=== PATIENT | female | born 1930 | race Caucasian/White ===

== ENCOUNTER 2016-07-28 13:11 | Emergency (ER) | payer MEDICARE, OTHER ==
[2010-07-26 07:20] VITALS: BMI 20.4
[2016-07-28 14:02] LABS: BASOPHILS 0.2 % (0.0-2.0); EOSINOPHILS 2.5 % (0-7); HEMATOCRIT 39.3 % (36.0-48.0); HEMOGLOBIN 12.6 g/dL (12-16); IMMATURE GRANULOCYTES 0.2 % (0-5); MCH 31.3 pg (26.0-34.0); MCHC 32.1 g/dL (31.0-37.0); MCV 97.8 fL (80.0-100.0); MEAN PLATELET VOLUME 10.1 fL (7.4-10.4); MONOCYTES 10.3 % (2-11); NEUTROPHILS 74.8 % (40-80); PLATELET COUNT 251 10x3/uL (130-400); RBC 4.02 10x6/uL (4.00-5.40); RDW 13.1 % (11.5-14.5); WBC 8.9 10x3/uL (4.8-10.8)
== END 2016-07-28 15:24 | disposition home or self-care (01) ==
LOC: D.ER 13:11
PROVIDERS: Emergency Medicine
DX: L02.31 Cutaneous abscess of buttock (principal); I50.9 Heart failure, unspecified; D64.9 Anemia, unspecified

== ENCOUNTER 2018-05-01 18:29 | Emergency (ER) | payer MEDICARE, OTHER ==
[~2018-05-01] VITALS: Ht 162.6 cm; Wt 41.8 kg
[2018-05-01 18:33] VITALS: Ht 162.6 cm; Wt 41.8 kg
[2018-05-01 19:25] LABS: BASOPHILS 0.9 % (0-2); EOSINOPHILS 9.4 % (0-7); HEMATOCRIT 34.2 % (36.0-48.0); HEMOGLOBIN 11.3 g/dL (12-16); IMMATURE GRANULOCYTES 0.2 % (0-5); LYMPHOCYTES 23.9 % (15-50); MCH 32.4 pg (26.0-34.0); MEAN PLATELET VOLUME 10.3 fL (7.4-10.4); MONOCYTES 15.8 % (2-11); NEUTROPHILS 49.8 % (40-80); RBC 3.49 10x6/uL (4.00-5.40); RDW 13.2 % (11.5-14.5); WBC 4.6 10x3/uL (4.8-10.8)
[2018-05-01 19:31] LABS: PLATELET COUNT 172 10x3/uL (130-400)
[2018-05-01 20:06] LABS: ALBUMIN 3.4 g/dL (3.4-5.0); BILIRUBIN - TOTAL 0.56 mg/dL (0.2-1.3); CALCIUM 8.5 mg/dL (8.5-10.1); CARBON DIOXIDE 23.4 mmol/L (21.0-32.0); CREATININE - SERUM 1.8 mg/dL (0.6-1.3); POTASSIUM - SERUM 4.4 mmol/L (3.5-5.1)
[2018-05-01 20:10] LABS: APPEARANCE CLEAR (CLEAR); BILIRUBIN NEGATIVE (NEGATIVE); COLOR YELLOW (YELLOW); GLUCOSE NEGATIVE (NEGATIVE); KETONE NEGATIVE (NEGATIVE); NITRITE NEGATIVE (NEGATIVE); PROTEIN NEGATIVE (NEGATIVE); UROBILINOGEN NORMAL (NORMAL)
[2018-05-01 20:11] LABS: BACTERIA FEW /hpf (NONE SEEN); EPITHELIAL CELLS 0-5 /hpf (0-5); RED CELLS - URINE OCC /hpf (0-5); WHITE CELLS - URINE 0-5 /hpf (0-5)
[2018-05-01] MEDS ORDERED: MACROBID100 MG PO (20:41)
[2018-05-01 20:48] VITALS: BP 138/77
== END 2018-05-01 20:48 | disposition home or self-care (01) ==
LOC: D.ER 18:29
PROVIDERS: Family Medicine
DX: N39.0 Urinary tract infection, site not specified (principal); R53.1 Weakness

== ENCOUNTER → 2018-06-29 13:29 | Outpatient (CLI) | payer MEDICARE, OTHER ==
[2018-05-01 18:33] VITALS: BMI 15.8
[~2018-06-29 13:29] MED LIST: MACROBID100 MG PO
[2018-06-29 13:54] LABS: AMYLASE - SERUM 59 U/L (25-115); LIPASE 197 U/L (73-393)
== END | disposition home or self-care (01) ==
LOC: D.LABREF 13:29
PROVIDERS: Internal Medicine Gastroenterology
DX: R11.2 Nausea with vomiting, unspecified (principal); K21.9 Gastro-esophageal reflux disease without esophagitis; R10.32 Left lower quadrant pain; R63.4 Abnormal weight loss

== ENCOUNTER 2018-07-31 08:44 | Day surgery (SDC) | payer MEDICARE, BC ==
[~2018-07-31] VITALS: Ht 162.6 cm; Wt 38.6 kg
[2018-07-31 09:13] LABS: BASOPHILS 0.6 % (0-2); EOSINOPHILS 0.7 % (0-7); HEMATOCRIT 35.6 % (36.0-48.0); HEMOGLOBIN 11.7 g/dL (12-16); LYMPHOCYTES 16.7 % (15-50); MCH 32.8 pg (26.0-34.0); MCHC 32.9 g/dL (31.0-37.0); MCV 99.7 fL (80.0-100.0); MEAN PLATELET VOLUME 10.2 fL (7.4-10.4); MONOCYTES 11.1 % (2-11); NEUTROPHILS 70.9 % (40-80); RBC 3.57 10x6/uL (4.00-5.40); RDW 13.5 % (11.5-14.5); WBC 5.4 10x3/uL (4.8-10.8)
[2018-07-31 09:15] LABS: PLATELET COUNT 230 10x3/uL (130-400)
[2018-07-31 09:17] LABS: ANION GAP 16.6 mmol/L (8-16); CALCIUM 8.6 mg/dL (8.5-10.1); CARBON DIOXIDE 20.3 mmol/L (21.0-32.0); CREATININE - SERUM 1.9 mg/dL (0.6-1.3); POTASSIUM - SERUM 3.9 mmol/L (3.5-5.1)
[2018-07-31] MEDS ORDERED: PLAVIX75 MG PO (09:59)
[2018-07-31] MEDS ORDERED: FUROSEMIDE10 MG/M1 IV (09:59)
[2018-07-31] MEDS ORDERED: STERAPRED DS 1010 MG PO (10:00)
[2018-07-31 10:01] VITALS: BP 139/64; Ht 162.6 cm; Wt 38.6 kg
[2018-07-31] MEDS ORDERED: ACETAMINOP160 MG/5 M PO (10:01)
--- NOTE | 2018-08-05 06:53 | OP ---
PATIENT NAME: JACINTO DHALIWAL MEDICAL RECORD: [id number] :30 [facility] DATE: SURGEON: ASHLEIGH CUNNINGHAM DO DATE OF OPERATION: 07/31/2018 PROCEDURE: EGD with biopsies. INDICATION FOR PROCEDURE: Dysphagia, GERD, nausea and vomiting, left upper quadrant abdominal pain, and unintentional weight loss. SCOPE: Olympus video gastroscope. MEDICATIONS: Propofol 80 mg IV per anesthesia. ESTIMATED BLOOD LOSS: Minimal. COMPLICATIONS: None. FINDINGS: Informed consent was given. The patient was made comfortable with the above medication. After reaching an adequate level of sedation by slow IV push, the patient was placed on her left side. The endoscope was advanced under direct visualization through the mouth to the second portion of the duodenum with ease. The upper, middle, and lower thirds of the esophagus appeared normal. At the GE junction, there was mild evidence of LA class A reflux-induced esophagitis. The endoscope was advanced beyond the GE junction into the stomach and retroflexed to view the cardia, where a small sliding hiatal hernia was present. There were no associated ulcers or erosions with this hernia. Throughout the entire stomach, the mucosa appeared slightly atrophic, but there were no ulcers, erosions, or other abnormalities. A single cold forceps biopsy was taken from the antrum to submit for histopathology and to rule out the presence of H. pylori. The endoscope was advanced beyond the pylorus into the duodenum. The entire examined duodenum to the second portion appeared normal. The endoscope was withdrawn from the patient. The patient tolerated the procedure well and there were no complications. IMPRESSION: 1. LA class A reflux-induced esophagitis. 2. Hiatal hernia. 3. Atrophic gastric mucosa. Biopsies taken. PLAN AND RECOMMENDATIONS: 1. Discharge home when recovery parameters are met. 2. Follow up biopsy specimen results. 3. Modified barium swallow regarding the oropharyngeal dysphagia. 4. Trial of omeprazole 40 mg daily times 30 days. 5. Follow up in GI clinic in 4 weeks. 6. If symptoms are no better and no answers are given from modified barium swallow, we will provide further workup, which may include barium esophagram and/or esophageal manometry as well as possible colonoscopy versus imaging studies. TRANSINT:[id number] Voice Confirmation ID: [id number] DOCUMENT ID: [id number] OPERATIVE REPORT [id number] JACINTO DHALIWALASHLEIGH CANDELARIA DO at 0653 CC: [id number] DICTATION DATE: 07/31/18 1212 HISTORIC SITES REGISTRAR: 07/31/18 1335 [facility] 07/31/18 [place] [address] [place] [address]
== END 2018-07-31 13:00 | disposition home or self-care (01) ==
LOC: D.OPS 08:44
PROVIDERS: Anesthesiology
DX: R13.10 Dysphagia, unspecified (principal); K21.9 Gastro-esophageal reflux disease without esophagitis; R11.2 Nausea with vomiting, unspecified; R63.4 Abnormal weight loss; R10.32 Left lower quadrant pain; K21.0 Gastro-esophageal reflux disease with esophagitis; K44.9 Diaphragmatic hernia without obstruction or gangrene; K29.40 Chronic atrophic gastritis without bleeding; Z01.812 Encounter for preprocedural laboratory examination

== ENCOUNTER → 2018-08-02 12:18 | Outpatient (CLI) | payer MEDICARE, BC ==
[2018-07-31 10:01] VITALS: BMI 14.6
[~2018-08-02 12:18] MED LIST changes: +ACETAMINOP160 MG/5 M PO; +FUROSEMIDE10 MG/M1 IV; +PLAVIX75 MG PO; +STERAPRED DS 1010 MG PO
== END | disposition home or self-care (01) ==
LOC: D.RAD 12:18
DX: R13.12 Dysphagia, oropharyngeal phase (principal)

== ENCOUNTER 2018-09-18 09:53 | Emergency (ER) | payer MEDICARE, BC ==
[~2018-09-18] VITALS: Ht 162.6 cm; Wt 43.6 kg
[2018-09-18 09:57] VITALS: Ht 162.6 cm; Wt 43.6 kg
[2018-09-18] MEDS ORDERED: VITAMIN D10000 UNI1 PO (10:01)
[2018-09-18] MEDS ORDERED: PREDNISONE20 MG PO (10:27)
[2018-09-18 11:06] VITALS: BP 146/76
== END 2018-09-18 11:07 | disposition home or self-care (01) ==
LOC: D.ER 09:53
DX: L29.9 Pruritus, unspecified (principal)

== ENCOUNTER 2018-10-23 08:22 | Day surgery (SDC) | payer MEDICARE, BC ==
[~2018-10-23 08:22] MED LIST changes: +PREDNISONE20 MG PO; +VITAMIN D10000 UNI1 PO
[2018-10-23 09:13] LABS: HEMATOCRIT 36.7 % (36.0-48.0); HEMOGLOBIN 12.5 g/dL (12-16); MCH 32.4 pg (26.0-34.0); MCHC 34.1 g/dL (31.0-37.0); MCV 95.1 fL (80.0-100.0); MEAN PLATELET VOLUME 10.2 fL (7.4-10.4); RBC 3.86 10x6/uL (4.00-5.40); RDW 13.6 % (11.5-14.5); WBC 4.9 10x3/uL (4.8-10.8)
[2018-10-23 09:53] VITALS: BP 133/79; BMI 15.8
--- NOTE | 2018-10-28 07:50 | OP ---
PATIENT NAME: JACINTO DHALIWAL MEDICAL RECORD: [id number] :30 LOCATION:[facility] ADMISSION DATE: SURGEON: ASHLEIGH CUNNINGHAM DO DATE OF OPERATION: 10/23/2018 PROCEDURE: Colonoscopy. INDICATIONS FOR PROCEDURE: Left upper quadrant abdominal pain, gas and bloating. SCOPE: Olympus video pediatric colonoscope. MEDICATIONS: Propofol 150 mg IV per anesthesia. WITHDRAWAL TIME: 6 minutes. ESTIMATED BLOOD LOSS: None. COMPLICATIONS: None. FINDINGS: Informed consent was given. The patient was made comfortable with the above medication. After reaching an adequate level of sedation by slow IV push, the patient was placed on her left side. A digital rectal examination was performed and revealed some external hemorrhoids. The endoscope was advanced under direct visualization through the rectum to the cecum, confirmed by the presence of the appendiceal orifice and ileocecal valve. The endoscope was slowly withdrawn and the mucosa was carefully examined. The prep quality was good. There were no polyps, diverticula, or other abnormalities visualized on today's examination. Retroflexion was performed in the rectum with visualization of grade II to grade III hemorrhoids. The endoscope was withdrawn from the patient. The patient tolerated the procedure well and there were no complications. IMPRESSION: Grade II to grade III internal and external hemorrhoids without bleeding. PLAN AND RECOMMENDATIONS: 1. Discharge home when recovery parameters are met. 2. High fiber diet. 3. Continue current medications. 4. No recalls necessary based on the patient's age, unless symptoms warrant evaluation. TRANSINT:[id number] Voice Confirmation ID: [id number] DOCUMENT ID: [id number] ASHLEIGH CUNNINGHAM DO at 0750 CC: [id number] DICTATION DATE: 10/23/18 1117 PIN OR CLIP FASTENER: 10/23/18 1128 [facility] 10/23/18 [place] [id number]
== END 2018-10-23 12:20 | disposition home or self-care (01) ==
LOC: D.OPS 08:22
PROVIDERS: Anesthesiology; ATTEND Internal Medicine Gastroenterology
DX: R10.12 Left upper quadrant pain (principal); K64.2 Third degree hemorrhoids; R11.2 Nausea with vomiting, unspecified; Z01.812 Encounter for preprocedural laboratory examination

== ENCOUNTER 2019-05-08 15:43 | Emergency (ER) | payer MEDICARE, BC ==
[~2019-05-08] VITALS: Ht 162.6 cm; Wt 42.7 kg
[2019-05-08 16:29] VITALS: Ht 162.6 cm; Wt 42.7 kg
[2019-05-08] MEDS ORDERED: HYDROCODON-ACE1 EAC7 PO (18:37)
[2019-05-08 19:16] VITALS: BP 160/83
== END 2019-05-08 18:59 | disposition home or self-care (01) ==
LOC: D.ER 15:43
DX: M79.671 Pain in right foot (principal); S99.921A Unspecified injury of right foot, initial encounter; W20.8XXA Other cause of strike by thrown, projected or falling object, initial encounter; M25.571 Pain in right ankle and joints of right foot; B15.9 Hepatitis A without hepatic coma; M19.90 Unspecified osteoarthritis, unspecified site

== ENCOUNTER → 2019-08-27 19:49 | Outpatient (CLI) | payer MEDICARE, BC ==
[2019-08-13 16:08] VITALS: BMI 16.8
[~2019-08-27 19:49] MED LIST changes: +HYDROCODON-ACE1 EAC7 PO; +KEFLEX500 MG PO; +MAXITROL EYE DRO5 ML EACH EYE; +MEDROL DOSE PACK4 MG PO
== END | disposition home or self-care (01) ==
LOC: D.LABREF 19:49
PROVIDERS: ATTEND Urology
DX: N39.0 Urinary tract infection, site not specified (principal)

== ENCOUNTER 2019-08-31 07:21 | Inpatient (IN) | payer MEDICARE, BC ==
[~2019-08-31] VITALS: Ht 162.6 cm; Wt 43.2 kg
[2019-08-31 09:06] LABS: HEMATOCRIT 34.1 % (36.0-48.0); HEMOGLOBIN 10.8 g/dL (12-16); MCH 31.2 pg (26.0-34.0); MCHC 31.7 g/dL (31.0-37.0); MCV 98.6 fL (80.0-100.0); MEAN PLATELET VOLUME 10.4 fL (7.4-10.4); PLATELET COUNT 178 10x3/uL (130-400); RBC 3.46 10x6/uL (4.00-5.40); RDW 14.6 % (11.5-14.5); WBC 22.2 10x3/uL (4.8-10.8)
[2019-08-31 09:09] LABS: CALCIUM 8.7 mg/dL (8.5-10.1); CARBON DIOXIDE 19.5 mmol/L (21.0-32.0); CREATININE - SERUM 1.5 mg/dL (0.6-1.3); POTASSIUM - SERUM 3.5 mmol/L (3.5-5.1)
[2019-08-31 09:15] LABS: ALBUMIN 2.9 g/dL (3.4-5.0); BILIRUBIN - TOTAL 0.28 mg/dL (0.2-1.3); INR 1.16 (0.85-1.17); PROTEIN - SERUM 6.2 g/dL (6.4-8.2); PROTIME 14.8 SECONDS (11.6-15.0)
[2019-08-31 09:16] LABS: D-DIMER-QUANTITATIVE 1.36 ug/mLFEU (0.20-0.54)
--- NOTE | 2019-08-31 09:30 | NUR ---
pt arrived via strecher and ambulated to bed with personal walker with steady gait. water recieved upon request. Denies further needs or pain at this time. Swelling noted to right foot. pulses palpable and even bilaterally. AxO. Oriented to room. Call light within reach. Bed in lowest position. Will continue to monitor.
[2019-08-31 09:32] LABS: EOSINOPHILS 1 % (0-7); LYMPHOCYTES 3 % (15-50); MONOCYTES 6 % (2-11); NEUTROPHILS 87 % (40-80)
[2019-08-31 09:33] LABS: PLATELET ESTIMATE NORMAL
--- NOTE | 2019-08-31 09:34 | NUR ---
PATIENT IN WITH C/O RLE PAIN X 4 DAYS, DENIES INJURY, GOOD PULSES, RED AREA, NO EDEMA. PATIENT IS A+O X3.
[2019-08-31] MEDS ORDERED: OMEPRAZOLE40 MG PO (10:48)
[2019-08-31] MEDS ORDERED: ELAVIL10 MG PO (10:49)
[2019-08-31] MEDS ORDERED: FUROSEMIDE20 MG PO (10:49)
[2019-08-31] MEDS ORDERED: ATARAX 25 MG TA25 MG PO (10:50)
[2019-08-31 11:06] VITALS: BP 130/45; BMI 16.8
[2019-08-31 12:00] VITALS: BP 123/72
[2019-08-31 15:48] LABS: % SATURATION 5 % (15-55); IRON 14 ug/dl (35-150); TOTAL IRON BIND CAPACITY 275 ug/dl (260-445); UNSAT IRON BIND CAPACITY 261 ug/dl (150-375)
[2019-08-31 17:10] LABS: CKMB 1.4 U/L (0.0-3.6); CREATINE KINASE 42 UL (21-215); TROPONIN-I < 0.017 ng/mL (0.000-0.060)
--- NOTE | 2019-08-31 19:10 | NUR ---
BEDSIDE REPORT RECEIVED FROM DAY SHIFT, PT CARE ASSUMED. INTRODUCED SELF AND WROTE NAME ON BOARD. PT SITTING UP IN BED WATCHING TV, AAOX4. C/O RIGHT ANKLE PAIN OF 10, ON A SCALE OF O-10. DENIES ANY OTHER NEEDS AT THIS TIME. BED IN LOWEST POSITION, SR X2, CALL LIGHT WITHIN REACH. WILL CONTINUE TO MONITOR.
[2019-08-31 20:00] VITALS: BP 122/53
[2019-08-31 22:11] LABS: CKMB 1.6 U/L (0.0-3.6); CREATINE KINASE 75 UL (21-215)
[2019-08-31 22:17] LABS: TROPONIN-I < 0.017 ng/mL (0.000-0.060)
[2019-09-01] VITALS: BP 109/55
[2019-09-01 03:26] LABS: BASOPHILS 0.1 % (0-2); EOSINOPHILS 0.9 % (0-7); HEMATOCRIT 30.6 % (36.0-48.0); HEMOGLOBIN 9.6 g/dL (12-16); IMMATURE GRANULOCYTES 0.2 % (0-5); LYMPHOCYTES 9.2 % (15-50); MCH 30.8 pg (26.0-34.0); MCHC 31.4 g/dL (31.0-37.0); MCV 98.1 fL (80.0-100.0); MONOCYTES 14.2 % (2-11); NEUTROPHILS 75.4 % (40-80); PLATELET COUNT 167 10x3/uL (130-400); RBC 3.12 10x6/uL (4.00-5.40); RDW 14.3 % (11.5-14.5)
[2019-09-01 03:28] LABS: WBC 9.9 10x3/uL (4.8-10.8)
[2019-09-01 04:02] LABS: ALBUMIN 2.4 g/dL (3.4-5.0); ALKALINE PHOSPHATASE 104 U/L (30-120); ALT (SGPT) 13 U/L (10-68); BILIRUBIN - TOTAL 0.24 mg/dL (0.2-1.3); CALC OSMOLALITY 274 mosm/kg (275-300); CALCIUM 7.9 mg/dL (8.5-10.1); CARBON DIOXIDE 22.5 mmol/L (21.0-32.0); CHLORIDE - SERUM 105 mmol/L (98-107); CKMB 1.9 U/L (0.0-3.6); CREATINE KINASE 58 UL (21-215); CREATININE - SERUM 1.6 mg/dL (0.6-1.3); GLUCOSE 81 mg/dL (74-106); MAGNESIUM - SERUM 1.5 mg/dL (1.8-2.4); POTASSIUM - SERUM 3.7 mmol/L (3.5-5.1); PROTEIN - SERUM 5.4 g/dL (6.4-8.2); SODIUM 135 mmol/L (136-145); TROPONIN-I 0.025 ng/mL (0.000-0.060); UREA NITROGEN 28 mg/dL (7-18); eGFR NON AFRICAN AMERICAN 32 mL/min (90-120)
[2019-09-01 05:04] VITALS: BP 111/50
--- NOTE | 2019-09-01 07:41 | NUR ---
PATIENT HAD SOME OF HER OWN MEDICATIONS AT BEDSIDE. THE UTILITY MANAGER NURSE TOOK THE PILLS AND EXPLAINED THAT SHE DOES NOT NEED TO TAKE HER OWN MEDICATIONS WHILT SHE IS HERE IN THE HOSPITAL. THE MEDICATIONS HAVE BEEN PLACED IN A PATIENTS OWN MED ENVOLOPE AND I WILL BRING IT DOWN TO PHARMACY FOR THEM TO KEEP. THERE ARE 10 IRON TABS, 14 BENADRYL TABS, AND TWO WHITE TABS THAT ARE UNKNOWN, BUT THE PHARMASIST IS GOING TO ID.
--- NOTE | 2019-09-01 07:47 | NUR ---
RECIEVED REPORT. PATIENT IS ALERT AND AWAKE AND DENIES ANY NEEDS AT THIS TIME. SHE HAS HIT THE CALL LIGHT THREE TIMES IN THE LAST 10 MINUTES, AND IS SITTING UP IN BED WATCHING TV. DENIES ANY NEEDS AT THIS TIME.
[2019-09-01 08:34] VITALS: BP 100/55
--- NOTE | 2019-09-01 11:00 | NUR ---
CALLED AUDREY FONSECA GLASS BELT SANDER TO ASK ABOUT MEDICATION FOR ITCHING. PATIENT IS C/O ITCHING. RAYMUNDO SAID SHE WOULD REVIEW THE MEDICATIONS .
[2019-09-01 11:47] LABS: AMORPHOUS SEDIMENT <1+ /lpf (NONE SEEN); BACTERIA FEW /hpf (NEGATIVE); BILIRUBIN NEGATIVE (NEGATIVE); EPITHELIAL CELLS 0-5 /hpf (0-5); GLUCOSE NEGATIVE (NEGATIVE); KETONE NEGATIVE (NEGATIVE); NITRITE NEGATIVE (NEGATIVE); RED CELLS - URINE NONE SEEN /hpf (0-5); SPECIFIC GRAVITY 1.015 (1.005-1.020); UROBILINOGEN NORMAL (NORMAL); WHITE CELLS - URINE RARE /hpf (NEGATIVE)
[2019-09-01 12:00] VITALS: BP 125/54
[2019-09-01 13:28] VITALS: Ht 162.6 cm; Wt 43.2 kg
[2019-09-01 15:45] VITALS: BP 114/61
--- NOTE | 2019-09-01 16:52 | NUR ---
Rehab Note- Acute Inpatient prescreen order received. The patient has been seen by PT and noted to be up ad marcelo therefore is too functional for inpatient acute rehab stay. Thank you for this referral! Michelle Mott RN Clinical Liaison, [facility] Rehab
--- NOTE | 2019-09-01 17:15 | NUR ---
PATIENT IS GETTING HER CT DONE AT THIS TIME, TO LOOK FOR KIDNEY STONES.
[2019-09-01 20:48] VITALS: BP 136/62
--- NOTE | 2019-09-01 20:53 | NUR ---
EVENING ROUNDS COMPLETED. AFVSS, AAOX3, ASSIST PT TO RESTROOM. PT HAD A BM. MILO ALARM ON. IV IRON INFUSING @100MLS/HR. PT DENIES ANY FURTHER NEEDS AT THIS TIME. WILL CPOC. CL WITHIN REACH.
[2019-09-02 00:12] VITALS: BP 119/54
[2019-09-02 03:45] VITALS: BP 116/56
[2019-09-02 04:49] LABS: BASOPHILS 0.2 % (0-2); EOSINOPHILS 2.9 % (0-7); HEMOGLOBIN 9.2 g/dL (12-16); LYMPHOCYTES 14.3 % (15-50); MCH 30.7 pg (26.0-34.0); MCHC 31.7 g/dL (31.0-37.0); MCV 96.7 fL (80.0-100.0); MONOCYTES 12.7 % (2-11); NEUTROPHILS 69.9 % (40-80); PLATELET COUNT 189 10x3/uL (130-400)
[2019-09-02 04:57] LABS: WBC 5.5 10x3/uL (4.8-10.8)
[2019-09-02 05:11] LABS: ANION GAP 13.6 mmol/L (8-16); CALCIUM 8.3 mg/dL (8.5-10.1); CARBON DIOXIDE 23.1 mmol/L (21.0-32.0); CREATININE - SERUM 1.8 mg/dL (0.6-1.3); MAGNESIUM - SERUM 1.9 mg/dL (1.8-2.4); POTASSIUM - SERUM 3.7 mmol/L (3.5-5.1)
[2019-09-02 09:31] VITALS: BP 123/63
--- NOTE | 2019-09-02 10:56 | NUR ---
I have reviewed this patient and I concur with the Shift Assessment completed by the Licensed Practical Nurse today this shift.
[2019-09-02 13:43] VITALS: BP 130/64
[2019-09-02 17:04] VITALS: BP 128/64
--- NOTE | 2019-09-02 20:00 | NUR ---
EVENING ROUNDS COMP. PT AFVSS, AAOX3, NO S/S OF DISTRESS. ASSIST PT TO RESTROOM. PT HAD A BM. ALTHOUGH COULD NOT COLLECT STOOL SAMPLE, BECAUSE PT HAD URINE MIXED WITH STOOL. EDUCATE PT ON HOW TO USE HAT. PT VERBALIZE UNDERSTANDING. PT DENIES ANY FURTHER NEEDS AT THIS TIME. WILL CPOC. CL WITHIN REACH.
[2019-09-02 20:39] VITALS: BP 131/62
--- NOTE | 2019-09-02 22:24 | NUR ---
PT C/O PAIN ON ANKLE 03/04. PRN DILAUDID GIVEN AT THIS TIME. WILL CTM.
[2019-09-03 05:13] VITALS: BP 116/60
[2019-09-03 06:07] LABS: BASOPHILS 0.2 % (0-2); EOSINOPHILS 4.5 % (0-7); HEMATOCRIT 29.8 % (36.0-48.0); HEMOGLOBIN 9.4 g/dL (12-16); IMMATURE GRANULOCYTES 0.2 % (0-5); LYMPHOCYTES 18.6 % (15-50); MCH 30.5 pg (26.0-34.0); MCHC 31.5 g/dL (31.0-37.0); MCV 96.8 fL (80.0-100.0); MEAN PLATELET VOLUME 10.4 fL (7.4-10.4); MONOCYTES 11.9 % (2-11); NEUTROPHILS 64.6 % (40-80); PLATELET COUNT 203 10x3/uL (130-400); RBC 3.08 10x6/uL (4.00-5.40); RDW 14.2 % (11.5-14.5); WBC 4.6 10x3/uL (4.8-10.8)
[2019-09-03 06:23] LABS: ANION GAP 14.2 mmol/L (8-16); CARBON DIOXIDE 22.8 mmol/L (21.0-32.0); CREATININE - SERUM 1.6 mg/dL (0.6-1.3); MAGNESIUM - SERUM 1.7 mg/dL (1.8-2.4)
[2019-09-03 09:00] VITALS: BP 138/72
--- NOTE | 2019-09-03 15:34 | MORECARE ---
CASE MANAGEMENT DISCHARGE SUMMARY PATIENT: SERENITY LEOS UNIT: [id number] ADM DATE: 09/01/19 AGE: 89 : 30 SEX: F ROOM/BED: D.2106 AUTHOR: NAKIA,DOC PHYSICIAN: REFERRING PHYSICIAN: ROHAN NEWMAN MD DATE OF SERVICE: 09/03/19 Discharge Plan Patient Name: SERENITY LEOS Facility: [facility]:[place] : 1930 Planned Disposition: Prison Facility Anticipated Discharge Date: 09/03/19 Discharge Date: Expected LOS: 2 Initial Reviewer: [email or web address] Initial Review Date: 08/31/2019 Generated: 09/03/19 4:33 pm Comments DCP- Discharge Planning Updated by [email or web address]: Rad Krishnamurthy on 09/03/19 2:[address] Patient Name: SERENITY LEOS Admission Status: Elective Accout number: [id number] Admission Date: 09-01-2019 : 1930 Admission Diagnosis: Attending: ROHAN NEWMAN Current LOS: 2 Anticipated DC Date: 09-03-2019 Planned Disposition: Prison Facility Primary Insurance: MEDICARE A & B PLANNED EXTERNAL PROVIDER: [facility], MEDICARE REHAB BED Discharge Planning Comments: CM RECEIVED ORDER FOR INPATIENT REHAB PRESCREENING, CM MET WITH PT IN ROOM TO DISCUSS DISCHARGE PLANNING AND NEEDS. PT REPORTS LIVING AT HOME INDEPENDENTLY ALONE; PT'S ADULT DAUGHTER IS "IN AND OUT" BUT DOES NOT LIVE IN THE HOME. PT HAS CANE, HOME OXYGEN FROM [facility], WALKER AND MUCOMIST MACHINE. PT HAS NO OUTSIDE SERVICES ASSISTING IN THE HOME. CM DISCUSSED AVAILABILITY OF HOME HEALTH, REHAB SERVICES AND MEDICAL EQUIPMENT. PT WANTS REHAB AT [place]. CHOICE SIGNED. IMPORTANT MESSAGE FROM MEDICARE PROVIDED AND EXPLAINED. PT REPORTS DAUGHTER WILL PICK HER UP AT DISCHARGE. CM LATER ADVISED BY [employer] OF INPATIENT REHAB IN MULTIDISCIPLINARY TEAM MEETING THAT PT IS TOO HIGH FUNCTIONING FOR INPATIENT REHAB. CM MET WITH PT IN ROOM, DISCUSSED [facility]ITIES AND HOME HEALTH. PT AFRAID TO RETURN HOME ALONE WITH BLOOD CLOTS IN [place]. PT WANTS TO TRY TO GET INTO REHAB IN [facility] IN [place] AND DOES NOT WANT ONE IN [place]. PROVIDER LISTING REVIEWED, PT CHOICE SIGNED FOR [facility]. CM NOTIFIED [facility], OF [facility] OF REFERRAL FOR REHAB AND THAT PT IS READY TO DISCHARGE AND ASKED FOR QUICK REVIEW. CM FAXED REHAB REFERRAL TO [facility] VIA [facility] AT [phone]. CM WAITING ADMISSION DETERMINATION FROM [facility] FOR REHAB SERVICES. Mannequin Coloring Artist: Rad Krishnamurthy DCPIA - Discharge Planning Initial Assessment Updated by [id number]: Rad Krishnamurthy on 09/03/19 3:27 pm * Is the patient Alert and Oriented? Yes * How many steps to enter\\exit or inside your home? 4 W/RAILS * PCP DR. AMADOR * Pharmacy [facility] IN [place] * Preadmission Environment Home Alone * ADLs Independent * Equipment Cane Other Oxygen Walker * Other Equipment HOME OXYGEN ONLY - [facility] * List name and contact numbers for known caregivers / representatives who currently or will assist patient after discharge: KATIE RAINEY, DTR, [phone] * Verbal permission to speak to the caregivers and representatives has been obtained from the patient. N/A * Community resources currently utilized None * Please name any agencies selected above. NONE * Additional services required to return to the preadmission environment? No * Can the patient safely return to the preadmission environment? Yes * Has this patient been hospitalized within the prior 30 days at any hospital? No External Providers External Provider: [facility] [place] Next Contact Date: 09/03/2019 Service Request Date: Service Type: Resolution: Reviewer: Comments: Coverage Notice Reviewer: [id number] - Betsey Paz Notice Issued Date-Time: 08/31/2019 15:13 Notice Type: Medicare Outpatient Observation Notice Notice Delivered To: Patient Relationship to Patient: Self Maintenance Machinist Name: Serenity Leos Delivery Method: HAND - Hand Delivered Myra Days: Prior Verbal Notification: Recipient Understood Notice: Yes Recipient Signature: Yes Med Rec Note Co-signed by Attending: Coverage Notice Comment: DOZIER delivered to and signed by patient. Original given to patient and one placed on the chart. Patient Name: SERENITY LEOS Page [phone] at 3544 All edits/amendments must be made on the electronic document DICTATION DATE: 09/03/19 153 COORDINATOR HOTELS: MODESTA 09/03/19 153 RPT#: [id number] DC DATE: STATUS: ADM IN [facility] [address] [place] [address] END OF REPORT
[2019-09-03 17:24] VITALS: BP 133/59
[2019-09-03 17:25] VITALS: BP 144/69
--- NOTE | 2019-09-03 17:31 | NUR ---
PT COMPLAINING OF INCREASED PAIN TODAY, MEDS NOT TAKING AWAY. DR NEWMAN PAGED AND MESSAGE LEFT, AWAITING CALL BACK.
[2019-09-03 20:00] VITALS: BP 139/76
--- NOTE | 2019-09-03 20:17 | NUR ---
EVENING ROUNDS COMPLETED. AFVSS, AAOX3, NO S/S OF DISTRESS. PT C/O RIGHT ANKLE HURTING. WILL ADMINISTER PAIN MEDS WHEN DUE. PT DENIES ANY FURTHER NEEDS AT THIS TIME. WILL CPOC. CL WITHIN REACH.
[2019-09-04] VITALS: BP 128/68
[2019-09-04 04:00] VITALS: BP 136/64
--- NOTE | 2019-09-04 04:00 | NUR ---
PT PIV ILFILTRATED. IV REMOVED. RESTART NEW PIV ON RFA 20G X1 STICK. PT TOLERATE WELL. PRN DILAUDID GIVEN FOR PAIN OF 8/10 ON RIGHT ANKLE. WILL CTM. CL WITHIN REACH.
[2019-09-04 05:30] LABS: BASOPHILS 0.2 % (0-2); HEMATOCRIT 30.7 % (36.0-48.0); HEMOGLOBIN 9.6 g/dL (12-16); MCHC 31.3 g/dL (31.0-37.0); MCV 95.9 fL (80.0-100.0); MEAN PLATELET VOLUME 10.4 fL (7.4-10.4); MONOCYTES 16.6 % (2-11); NEUTROPHILS 59.2 % (40-80); PLATELET COUNT 214 10x3/uL (130-400); RDW 13.9 % (11.5-14.5); WBC 4.5 10x3/uL (4.8-10.8)
[2019-09-04 05:48] LABS: ANION GAP 12.5 mmol/L (8-16); CALCIUM 8.6 mg/dL (8.5-10.1); CARBON DIOXIDE 24.7 mmol/L (21.0-32.0); CREATININE - SERUM 1.8 mg/dL (0.6-1.3); MAGNESIUM - SERUM 1.9 mg/dL (1.8-2.4); POTASSIUM - SERUM 4.2 mmol/L (3.5-5.1)
--- NOTE | 2019-09-04 07:07 | NUR ---
REPORT RECEIVED. WILL CONTINUE WITH POC. PT CURRENTLY LYING SEMI FOWLERS. CALL LIGHT W/I REACH. PT IS AAO AND UP AD NIKO. RR EVEN AND UNLABORED ON RA. NS INFUSING @25ML/HR VIA L.FOR PIV. NO S/S OF DISTRESS NOTED. PT DENIES ANY NEEDS. WILL CTM.
--- NOTE | 2019-09-04 07:45 | MORECARE ---
CASE MANAGEMENT DISCHARGE SUMMARY PATIENT: SERENITY LEOS UNIT: [id number] ADM DATE: 09/01/19 AGE: 89 : 30 SEX: F ROOM/BED: D.2106 AUTHOR: NAKIA,DOC PHYSICIAN: REFERRING PHYSICIAN: ROHAN NEWMAN MD DATE OF SERVICE: 09/04/19 Discharge Plan Patient Name: SERENITY LEOS Facility: [facility]:[place] : 1930 Planned Disposition: Longterm Facility Anticipated Discharge Date: 09/03/19 Discharge Date: Expected LOS: 2 Initial Reviewer: [id number] Initial Review Date: 08/31/2019 Generated: 09/04/19 8:45 am Comments DCP- Discharge Planning Updated by [email or web address]: Rad Krishnamurthy on 09/04/19 6:[address] Patient Name: SERENITY LEOS Encounter No: [id number] : 1930 Primary Insurance: MEDICARE A & B Anticipated DC Date: 09-03-2019 Planned Disposition: Longterm Facility External Planned Provider: [facility], MEDICARE REHAB BED Discharge Planning Comments: CCM RECEIVED CALL FROM [place] OF [facility], PT HAS OPEN "MSP" CLAIM ATTACHED TO HHER MEDICARE AND THIS HAS TO BE CLOSED IN ORDER FOR ANY CARE HOME FACILITY TO GET PAYMENT FOR SERVICES. CM NOTIFIED PT AND PROVIDED MEDICARE PHONE NUMBER TO CALL AND TAKE CARE OF THIS. PT REPORTS HER SISTER WILL ASSIST HER WITH THIS TODAY. CM WAITING FOR PT TO CALL MEDICARE TO GET THE "MSP" TAKEN OFF OF HER MEDICARE TO ALLOW HER TO GO TO THE [facility] FOR REHAB SERVICES. Study Assistant: Rad Krishnamurthy DCP- Discharge Planning Updated by [id number]: Rad Krishnamurthy on 09/03/19 2:[address] Patient Name: SERENITY LEOS Admission Status: Elective Accout number: [id number] Admission Date: 09-01-2019 : 1930 Admission Diagnosis: Attending: ROHAN NEWMAN Current LOS: 2 Anticipated DC Date: 09-03-2019 Planned Disposition: Longterm Facility Primary Insurance: MEDICARE A & B PLANNED EXTERNAL PROVIDER: [facility], MEDICARE REHAB BED Discharge Planning Comments: CM RECEIVED ORDER FOR INPATIENT REHAB PRESCREENING, CM MET WITH PT IN ROOM TO DISCUSS DISCHARGE PLANNING AND NEEDS. PT REPORTS LIVING AT HOME INDEPENDENTLY ALONE; PT'S ADULT DAUGHTER IS "IN AND OUT" BUT DOES NOT LIVE IN THE HOME. PT HAS CANE, HOME OXYGEN FROM [facility], WALKER AND MUCOMIST MACHINE. PT HAS NO OUTSIDE SERVICES ASSISTING IN THE HOME. CM DISCUSSED AVAILABILITY OF HOME HEALTH, REHAB SERVICES AND MEDICAL EQUIPMENT. PT WANTS REHAB AT [place]. CHOICE SIGNED. IMPORTANT MESSAGE FROM MEDICARE PROVIDED AND EXPLAINED. PT REPORTS DAUGHTER WILL PICK HER UP AT DISCHARGE. CM LATER ADVISED BY [employer] OF INPATIENT REHAB IN MULTIDISCIPLINARY TEAM MEETING THAT PT IS TOO HIGH FUNCTIONING FOR INPATIENT REHAB. CM MET WITH PT IN ROOM, DISCUSSED CARE [facility] REHAB FACILITIES AND HOME HEALTH. PT AFRAID TO RETURN HOME ALONE WITH BLOOD CLOTS IN [place]G. PT WANTS TO TRY TO GET INTO REHAB IN [facility] IN [place] AND DOES NOT WANT ONE IN [place]. PROVIDER LISTING REVIEWED, PT CHOICE SIGNED FOR [facility]. CM NOTIFIED BRANDON, OF THE [facility] OF REFERRAL FOR REHAB AND THAT PT IS READY TO DISCHARGE AND ASKED FOR QUICK REVIEW. CM FAXED REHAB REFERRAL TO [facility] VIA [place] AT [phone]. CM WAITING ADMISSION DETERMINATION FROM THE [facility] FOR REHAB SERVICES. Study Assistant: Rad Krishnamurthy [facility] - Discharge Planning Initial Assessment Updated by [id number]: Rad Krishnamurthy on 09/03/19 3:27 pm * Is the patient Alert and Oriented? Yes * How many steps to enter\\exit or inside your home? 4 W/RAILS * PCP DR. AMADOR * Pharmacy [facility] IN [place] * Preadmission Environment Home Alone * ADLs Independent * Equipment Cane Other Oxygen Walker * Other Equipment HOME OXYGEN ONLY - [facility] [employer] [facility] * List name and contact numbers for known caregivers / representatives who currently or will assist patient after discharge: KATIE RAINEY, DTR, [phone] * Verbal permission to speak to the caregivers and representatives has been obtained from the patient. N/A * Community resources currently utilized None * Please name any agencies selected above. NONE * Additional services required to return to the preadmission environment? No * Can the patient safely return to the preadmission environment? Yes * Has this patient been hospitalized within the prior 30 days at any hospital? No Coverage Notice Reviewer: [id number] - Betsey Paz Notice Issued Date-Time: 08/31/2019 15:13 Notice Type: Medicare Outpatient Observation Notice Notice Delivered To: Patient Relationship to Patient: Self Slurry Tank Operator Name: Serenity Leos Delivery Method: HAND - Hand Delivered Myra Days: Prior Verbal Notification: Recipient Understood Notice: Yes Recipient Signature: Yes Med Rec Note Co-signed by Attending: Coverage Notice Comment: DOZIER delivered to and signed by patient. Original given to patient and one placed on the chart. Reviewer: [id number] Krishnamurthy Notice Issued Date-Time: 09/03/2019 9:35 Notice Type: Patient Choice Letter Notice Delivered To: Patient Relationship to Patient: Slurry Tank Operator Name: Delivery Method: HAND - Hand Delivered Myra Days: Prior Verbal Notification: Recipient Understood Notice: Yes Recipient Signature: Yes Med Rec Note Co-signed by Attending: Coverage Notice Comment: [facility] Reviewer: [id number] Krishnamurthy Notice Issued Date-Time: 09/03/2019 9:35 Notice Type: IM Discharge Notice Notice Delivered To: Patient Relationship to Patient: Slurry Tank Operator Name: Delivery Method: HAND - Hand Delivered Myra Days: Prior Verbal Notification: Recipient Understood Notice: Yes Recipient Signature: Yes Med Rec Note Co-signed by Attending: Coverage Notice Comment: Reviewer: GRICEL Krishnamurthy Notice Issued Date-Time: 09/03/2019 13:20 Notice Type: Patient Choice Letter Notice Delivered To: Patient Relationship to Patient: Slurry Tank Operator Name: Delivery Method: HAND - Hand Delivered Myra Days: Prior Verbal Notification: Recipient Understood Notice: Yes Recipient Signature: Yes Med Rec Note Co-signed by Attending: Coverage Notice Comment: [facility] Last DP export: 09/03/19 2:34 p Patient Name: SERENITY LEOS Page [phone] at 0745 All edits/amendments must be made on the electronic document DICTATION DATE: 09/04/19744 PROFESSOR OF MARKETING: MODESTA 09/04/19744 RPT#: [id number] DC DATE: STATUS: ADM IN [facility] [address] [place] [address] END OF REPORT
[2019-09-04 08:57] VITALS: BP 116/59
[2019-09-04 12:02] VITALS: BP 124/61
--- NOTE | 2019-09-04 12:48 | NUR ---
Nutrition Follow-up: Good/fair appetite/PO intake. Ate ~75% of breakfast this AM. C/o mild nausea. Diet: Cardiac, Dental Soft PO intake: 50% avg x 7 meals Wt: 95# (09/03) Last BM: 09/02 Labs reviewed Meds noted: Protonix, Lasix -Encourage PO intake and honor food preferences within diet restrictions. -Monitor wt; noted daily wts ordered. -RD following.
--- NOTE | 2019-09-04 17:11 | MORECARE ---
CASE MANAGEMENT DISCHARGE SUMMARY PATIENT: SERENITY LEOS UNIT: [id number] ADM DATE: 09/01/19 AGE: 89 : 30 SEX: F ROOM/BED: D.2106 AUTHOR: NAKIA,DOC PHYSICIAN: REFERRING PHYSICIAN: ROHAN NEWMAN MD DATE OF SERVICE: 09/04/19 Discharge Plan Patient Name: SERENITY LEOS Facility: [facility]:[place] : 1930 Planned Disposition: Fdc Facility Anticipated Discharge Date: 09/03/19 Discharge Date: Expected LOS: 2 Initial Reviewer: [id number] Initial Review Date: 08/31/2019 Generated: 09/04/19 6:10 pm DCP- Discharge Planning Updated by [id number]: Rad Krishnamurthy on 09/04/19 6:[address] Patient Name: SERENITY LEOS Encounter No: [id number] : 1930 Primary Insurance: MEDICARE A & B Anticipated DC Date: 09-03-2019 Planned Disposition: Fdc Facility External Planned Provider: [facility], MEDICARE REHAB BED Discharge Planning Comments: CCM RECEIVED CALL FROM LOWELL OF THE [facility], PT HAS OPEN "MSP" CLAIM ATTACHED TO HHER MEDICARE AND THIS HAS TO BE CLOSED IN ORDER FOR ANY SNF FACILITY TO GET PAYMENT FOR SERVICES. CM NOTIFIED PT AND PROVIDED MEDICARE PHONE NUMBER TO CALL AND TAKE CARE OF THIS. PT REPORTS HER SISTER WILL ASSIST HER WITH THIS TODAY. CM WAITING FOR PT TO CALL MEDICARE TO GET THE "MSP" TAKEN OFF OF HER MEDICARE TO ALLOW HER TO GO TO THE [facility] FOR REHAB SERVICES. Head Nurse: Rad Krishnamurthy DCP- Discharge Planning Updated by [id number]: Rad Krishnamurthy on 09/03/19 2:[address] Patient Name: SERENITY LEOS Admission Status: Elective Accout number: [id number] Admission Date: 09-01-2019 : 1930 Admission Diagnosis: Attending: ROHAN NEWMAN Current LOS: 2 Anticipated DC Date: 09-03-2019 Planned Disposition: Fdc Facility Primary Insurance: MEDICARE A & B PLANNED EXTERNAL PROVIDER: [facility], MEDICARE REHAB BED Discharge Planning Comments: CM RECEIVED ORDER FOR INPATIENT REHAB PRESCREENING, CM MET WITH PT IN ROOM TO DISCUSS DISCHARGE PLANNING AND NEEDS. PT REPORTS LIVING AT HOME INDEPENDENTLY ALONE; PT'S ADULT DAUGHTER IS "IN AND OUT" BUT DOES NOT LIVE IN THE HOME. PT HAS CANE, HOME OXYGEN FROM [facility], WALKER AND MUCOMIST MACHINE. PT HAS NO OUTSIDE SERVICES ASSISTING IN THE HOME. CM DISCUSSED AVAILABILITY OF HOME HEALTH, REHAB SERVICES AND MEDICAL EQUIPMENT. PT WANTS REHAB AT [place]. CHOICE SIGNED. IMPORTANT MESSAGE FROM MEDICARE PROVIDED AND EXPLAINED. PT REPORTS DAUGHTER WILL PICK HER UP AT DISCHARGE. CM LATER ADVISED BY [employer] OF INPATIENT REHAB IN MULTIDISCIPLINARY TEAM MEETING THAT PT IS TOO HIGH FUNCTIONING FOR INPATIENT REHAB. CM MET WITH PT IN ROOM, DISCUSSED SNF REHAB FACILITIES AND HOME HEALTH. PT AFRAID TO RETURN HOME ALONE WITH BLOOD CLOTS IN LEG. PT WANTS TO TRY TO GET INTO REHAB IN SNF FACLITY IN [place] AND DOES NOT WANT ONE IN [place]. PROVIDER LISTING REVIEWED, PT CHOICE SIGNED FOR THE [facility]. CM NOTIFIED BRANDON, OF THE [facility] OF REFERRAL FOR REHAB AND THAT PT IS READY TO DISCHARGE AND ASKED FOR QUICK REVIEW. CM FAXED REHAB REFERRAL TO THE [facility] VIA LOWELL AT [phone]. CM WAITING ADMISSION DETERMINATION FROM THE [facility] FOR REHAB SERVICES. Head Nurse: Rad Krishnamurthy [facility] - Discharge Planning Initial Assessment Updated by [id number]: Rad Krishnamurthy on 09/03/19 3:27 pm * Is the patient Alert and Oriented? Yes * How many steps to enter\\exit or inside your home? 4 W/RAILS * PCP DR. AMADOR * Pharmacy [facility] IN [place] * Preadmission Environment Home Alone * ADLs Independent * Equipment Cane Other Oxygen Walker * Other Equipment HOME OXYGEN ONLY - [facility]COMIST MACHINE * List name and contact numbers for known caregivers / representatives who currently or will assist patient after discharge: KATIE RAINEY, DTR, [phone] * Verbal permission to speak to the caregivers and representatives has been obtained from the patient. N/A * Community resources currently utilized None * Please name any agencies selected above. NONE * Additional services required to return to the preadmission environment? No * Can the patient safely return to the preadmission environment? Yes * Has this patient been hospitalized within the prior 30 days at any hospital? No External Providers External Provider: [facility] Next Contact Date: 09/04/2019 Service Request Date: Service Type: Resolution: Reviewer: Comments: Coverage Notice Reviewer: [id number] Rudi Paz Notice Issued Date-Time: 08/31/2019 15:13 Notice Type: Medicare Outpatient Observation Notice Notice Delivered To: Patient Relationship to Patient: Self Signals Intelligence Analyst Name: Serenity Leos Delivery Method: HAND - Hand Delivered Myra Days: Prior Verbal Notification: Recipient Understood Notice: Yes Recipient Signature: Yes Med Rec Note Co-signed by Attending: Coverage Notice Comment: DOZIER delivered to and signed by patient. Original given to patient and one placed on the chart. Reviewer: [id number] Rudi Krishnamurthy Notice Issued Date-Time: 09/03/2019 9:35 Notice Type: Patient Choice Letter Notice Delivered To: Patient Relationship to Patient: Signals Intelligence Analyst Name: Delivery Method: HAND - Hand Delivered Myra Days: Prior Verbal Notification: Recipient Understood Notice: Yes Recipient Signature: Yes Med Rec Note Co-signed by Attending: Coverage Notice Comment: [facility] Reviewer: [id number] Krishnamurthy Notice Issued Date-Time: 09/03/2019 9:35 Notice Type: IM Discharge Notice Notice Delivered To: Patient Relationship to Patient: Signals Intelligence Analyst Name: Delivery Method: HAND - Hand Delivered Myra Days: Prior Verbal Notification: Recipient Understood Notice: Yes Recipient Signature: Yes Med Rec Note Co-signed by Attending: Coverage Notice Comment: Reviewer: [id number] Krishnamurthy Notice Issued Date-Time: 09/03/2019 13:20 Notice Type: Patient Choice Letter Notice Delivered To: Patient Relationship to Patient: Signals Intelligence Analyst Name: Delivery Method: HAND - Hand Delivered Myra Days: Prior Verbal Notification: Recipient Understood Notice: Yes Recipient Signature: Yes Med Rec Note Co-signed by Attending: Coverage Notice Comment: LAURA Barnes DP export: 09/04/19 6:45 a Patient Name: SERENITY LEOS Page 56266 at 1711 All edits/amendments must be made on the electronic document DICTATION DATE: 09/04/191709 ORIENTOR: MODESTA 09/04/191709 RPT#: [id number] DC DATE: STATUS: ADM IN [facility] [address] [place] [address] END OF REPORT
--- NOTE | 2019-09-04 17:25 | MORECARE ---
CASE MANAGEMENT DISCHARGE SUMMARY PATIENT: SERENITY LEOS UNIT: [id number] ADM DATE: 09/01/19 AGE: 89 : 30 SEX: F ROOM/BED: D.2106 AUTHOR: NAKIA,DOC PHYSICIAN: REFERRING PHYSICIAN: ROHAN NEWMAN MD DATE OF SERVICE: 09/04/19 Discharge Plan Patient Name: SERENITY LEOS Facility: [facility]:[place] : 1930 Planned Disposition: Chcf Facility Anticipated Discharge Date: 09/03/19 Discharge Date: Expected LOS: 2 Initial Reviewer: [id number] Initial Review Date: 08/31/2019 Generated: 09/04/19 6:25 pm Comments DCP- Discharge Planning Updated by [id number]: Rad Krishnamurthy on 09/04/19 4:[address] Patient Name: SERENITY LEOS Encounter No: [id number] : 1930 Primary Insurance: MEDICARE A & B Anticipated DC Date: 09-03-2019 Planned Disposition: Chcf Facility External Planned Provider: [facility] OR [facility], MEDICARE REHAB BED DCP follow-up note: CM SPOKE TO PT IN ROOM WHO HAD DAUGHTER, KATIE RAINEY ON PHONE ). KATIE REPORTS PT'S SISTER CALLED MEDICARE AND REMOVED THE "MSP" AND IT SHOULD BE CLEAR TO ENTER REHAB WITHIN THE NEXT 48 HOURS. PT STATES SHE DOES NOT WANT TO GO TO THE [facility] HER FELL AND IN THE FACILITY. CM REVIEWED ASSISTED FACILITY LIST, PT AND DAUGHTER CHOSE [place] OR [facility], CHOICE COMPLETED. CM NOTIFIED [facility], , OF REFERRAL. CM FAXED REFERRAL TO DOUG FOR [facility] AT [phone]. CM WAITING ADMISSION DETERMINATION FOR REHAB AT [facility]. FAMILY REPORTS HAVING RESTRICTION REMOVED FROM PT'S MEDICARE CASE THAT WILL ALLOW ASSISTED FACILITY REHAB PLACEMENT. Rad Krishnamurthy, CASE MANAGEMENT DCP- Discharge Planning Updated by [id number]: Rad Krishnamurthy on 09/04/19 6:[address] Patient Name: SERENITY LEOS Encounter No: [id number] : 1930 Primary Insurance: MEDICARE A & B Anticipated DC Date: 09-03-2019 Planned Disposition: Chcf Facility External Planned Provider: [facility], MEDICARE REHAB BED Discharge Planning Comments: CCM RECEIVED CALL FROM BRANDON OF THE [facility], PT HAS OPEN "MSP" CLAIM ATTACHED TO [employer]HER MEDICARE AND THIS HAS TO BE CLOSED IN ORDER FOR ANY ASSISTED FACILITY TO GET PAYMENT FOR SERVICES. CM NOTIFIED PT AND PROVIDED MEDICARE PHONE NUMBER TO CALL AND TAKE CARE OF THIS. PT REPORTS HER SISTER WILL ASSIST HER WITH THIS TODAY. CM WAITING FOR PT TO CALL MEDICARE TO GET THE "MSP" TAKEN OFF OF HER MEDICARE TO ALLOW HER TO GO TO THE [facility] FOR REHAB SERVICES. Die Engraver: Rad Krishnamurthy DCP- Discharge Planning Updated by [id number]: Rad Krishnamurthy on 09/03/19 2:[address] Patient Name: SERENITY LEOS Admission Status: Elective Accout number: [id number] Admission Date: 09-01-2019 : 1930 Admission Diagnosis: Attending: ROHAN NEWMAN Current LOS: 2 Anticipated DC Date: 09-03-2019 Planned Disposition: Chcf Facility Primary Insurance: MEDICARE A & B PLANNED EXTERNAL PROVIDER: [facility], MEDICARE REHAB BED Discharge Planning Comments: CM RECEIVED ORDER FOR INPATIENT REHAB PRESCREENING, CM MET WITH PT IN ROOM TO DISCUSS DISCHARGE PLANNING AND NEEDS. PT REPORTS LIVING AT HOME INDEPENDENTLY ALONE; PT'S ADULT DAUGHTER IS "IN AND OUT" BUT DOES NOT LIVE IN THE HOME. PT HAS CANE, HOME OXYGEN FROM [facility], WALKER AND MUCOMIST MACHINE. PT HAS NO OUTSIDE SERVICES ASSISTING IN THE HOME. CM DISCUSSED AVAILABILITY OF HOME HEALTH, REHAB SERVICES AND MEDICAL EQUIPMENT. PT WANTS REHAB AT [place]. CHOICE SIGNED. IMPORTANT MESSAGE FROM MEDICARE PROVIDED AND EXPLAINED. PT REPORTS DAUGHTER WILL PICK HER UP AT DISCHARGE. CM LATER ADVISED BY [employer] OF INPATIENT REHAB IN MULTIDISCIPLINARY TEAM MEETING THAT PT IS TOO HIGH FUNCTIONING FOR INPATIENT REHAB. CM MET WITH PT IN ROOM, DISCUSSED ASSISTED REHAB FACILITIES AND HOME HEALTH. PT AFRAID TO RETURN HOME ALONE WITH BLOOD CLOTS IN LEG. PT WANTS TO TRY TO GET INTO REHAB IN ASSISTED FACLITY IN [place] AND DOES NOT WANT ONE IN [place]. PROVIDER LISTING REVIEWED, PT CHOICE SIGNED FOR THE [facility]. CM NOTIFIED BRANDON, OF THE [facility] OF REFERRAL FOR REHAB AND THAT PT IS READY TO DISCHARGE AND ASKED FOR QUICK REVIEW. CM FAXED REHAB REFERRAL TO THE [facility] VIA BRANDON AT [phone]. CM WAITING ADMISSION DETERMINATION FROM THE [facility] FOR REHAB SERVICES. Die Engraver: Rad Krishnamurthy DCPIA - Discharge Planning Initial Assessment Updated by [id number]: Rad Krishnamurthy on 09/03/19 3:27 pm * Is the patient Alert and Oriented? Yes * How many steps to enter\\exit or inside your home? 4 W/RAILS * PCP DR. AMADOR * Pharmacy [facility] IN [place] * Preadmission Environment Home Alone * ADLs Independent * Equipment Cane Other Oxygen Walker * Other Equipment HOME OXYGEN ONLY - [facility] [employer]IST MACH[facility] * List name and contact numbers for known caregivers / representatives who currently or will assist patient after discharge: KATIE RAINEY, R, [phone] * Verbal permission to speak to the caregivers and representatives has been obtained from the patient. N/A * Community resources currently utilized None * Please name any agencies selected above. NONE * Additional services required to return to the preadmission environment? No * Can the patient safely return to the preadmission environment? Yes * Has this patient been hospitalized within the prior 30 days at any hospital? No Coverage Notice Reviewer: [id number] Rudi Paz Notice Issued Date-Time: 08/31/2019 15:13 Notice Type: Medicare Outpatient Observation Notice Notice Delivered To: Patient Relationship to Patient: Self Metal Stamper Name: Serenity Leos Delivery Method: HAND - Hand Delivered Myra Days: Prior Verbal Notification: Recipient Understood Notice: Yes Recipient Signature: Yes Med Rec Note Co-signed by Attending: Coverage Notice Comment: DOZIER delivered to and signed by patient. Original given to patient and one placed on the chart. Reviewer: [id number] Rudi Krishnamurthy Notice Issued Date-Time: 09/04/2019 15:55 Notice Type: Patient Choice Letter Notice Delivered To: Patient Relationship to Patient: Metal Stamper Name: Delivery Method: HAND - Hand Delivered Myra Days: Prior Verbal Notification: Recipient Understood Notice: Yes Recipient Signature: Yes Med Rec Note Co-signed by Attending: Coverage Notice Comment: MISA ALDANA OR ANSLEY Reviewer: [id number] Rudi Krishnamurthy Notice Issued Date-Time: 09/03/2019 13:20 Notice Type: Patient Choice Letter Notice Delivered To: Patient Relationship to Patient: Metal Stamper Name: Delivery Method: HAND - Hand Delivered Myra Days: Prior Verbal Notification: Recipient Understood Notice: Yes Recipient Signature: Yes Med Rec Note Co-signed by Attending: Coverage Notice Comment: JEFFREY OTERO Reviewer: [id number] Rudi Krishnamurthy Notice Issued Date-Time: 09/03/2019 9:35 Notice Type: Patient Choice Letter Notice Delivered To: Patient Relationship to Patient: Metal Stamper Name: Delivery Method: HAND - Hand Delivered Myra Days: Prior Verbal Notification: Recipient Understood Notice: Yes Recipient Signature: Yes Med Rec Note Co-signed by Attending: Coverage Notice Comment: [facility] Reviewer: [id number] Rudi Krishnamurthy Notice Issued Date-Time: 09/03/2019 9:35 Notice Type: IM Discharge Notice Notice Delivered To: Patient Relationship to Patient: Metal Stamper Name: Delivery Method: HAND - Hand Delivered Myra Days: Prior Verbal Notification: Recipient Understood Notice: Yes Recipient Signature: Yes Med Rec Note Co-signed by Attending: Coverage Notice Comment: Last DP export: 09/04/19 4:11 p Patient Name: SERENITY LEOS Page 02108 at 1725 All edits/amendments must be made on the electronic document DICTATION DATE: 09/04/191724 APPLICATIONS COORDINATOR: MODESTA 09/04/191724 RPT#: [id number] DC DATE: STATUS: ADM IN [facility] [address] [place] [address] END OF REPORT
--- NOTE | 2019-09-04 19:33 | NUR ---
PT UP TO RESTROOM CO OF PAIN RT FOOT WILL GET PRN BED LOW AND LOCKED CALL LIGHT WITH PT OTHER NEEDS SEEN TO WELL
[2019-09-04 20:00] VITALS: BP 123/64
[2019-09-05] VITALS: BP 115/58
--- NOTE | 2019-09-05 03:08 | NUR ---
I have reviewed this patient and I concur with the Shift Assessment completed by the Licensed Practical Nurse today this shift.
[2019-09-05 04:00] VITALS: BP 123/66
[2019-09-05 05:04] LABS: BASOPHILS 0.2 % (0-2); EOSINOPHILS 5.9 % (0-7); IMMATURE GRANULOCYTES 0.2 % (0-5); LYMPHOCYTES 19.1 % (15-50); MCH 30.3 pg (26.0-34.0); MCHC 31.3 g/dL (31.0-37.0); MEAN PLATELET VOLUME 10.5 fL (7.4-10.4); MONOCYTES 19.1 % (2-11); NEUTROPHILS 55.5 % (40-80); PLATELET COUNT 239 10x3/uL (130-400); WBC 4.9 10x3/uL (4.8-10.8)
[2019-09-05 05:12] LABS: ANION GAP 10.5 mmol/L (8-16); CALCIUM 8.5 mg/dL (8.5-10.1); CARBON DIOXIDE 26.7 mmol/L (21.0-32.0); CREATININE - SERUM 1.8 mg/dL (0.6-1.3); MAGNESIUM - SERUM 1.7 mg/dL (1.8-2.4); POTASSIUM - SERUM 4.2 mmol/L (3.5-5.1)
[2019-09-05 08:52] VITALS: BP 129/67
[2019-09-05 12:46] VITALS: BP 127/64
[2019-09-05 13:06] LABS: INR 1.03 (0.85-1.17); PROTIME 13.4 SECONDS (11.6-15.0)
[2019-09-05] MEDS ORDERED: HYDROCODON-ACE1 EAC7 (16:08)
--- NOTE | 2019-09-05 16:29 | NUR ---
PT REFUSING TO WEAR HEART MONITOR. RETURNED TO [facility].
--- NOTE | 2019-09-05 16:44 | MORECARE ---
CASE MANAGEMENT DISCHARGE SUMMARY PATIENT: SERENITY LEOS UNIT: [id number] ADM DATE: 09/01/19 AGE: 89 : 30 SEX: F ROOM/BED: D.2106 AUTHOR: NAKIA,DOC PHYSICIAN: REFERRING PHYSICIAN: ROHAN NEWMAN MD DATE OF SERVICE: 09/05/19 Discharge Plan Patient Name: SERENITY LEOS Facility: [facility]:[place] : 1930 Planned Disposition: Jail Facility Anticipated Discharge Date: 09/08/19 Discharge Date: Expected LOS: 7 Initial Reviewer: [id number] Initial Review Date: 08/31/2019 Generated: 09/05/19 5:44 pm Comments DCP- Discharge Planning Updated by [id number]: Rad Krishnamurthy on 09/04/19 4:[address] Patient Name: SERENITY LEOS Encounter No: [id number] : 1930 Primary Insurance: MEDICARE A & B Anticipated DC Date: 09-03-2019 Planned Disposition: Jail Facility External Planned Provider: [facility] OR [facility], MEDICARE REHAB BED DCP follow-up note: CM SPOKE TO PT IN ROOM WHO HAD DAUGHTER, KATIE RAINEY ON PHONE ( [phone]). KATIE REPORTS PT'S SISTER CALLED MEDICARE AND REMOVED THE "MSP" AND IT SHOULD BE CLEAR TO ENTER REHAB WITHIN THE NEXT 48 HOURS. PT STATES SHE DOES NOT WANT TO GO TO THE [facility] HER FELL AND IN THE FACILITY. CM REVIEWED INTERMEDIATE FACILITY LIST, PT AND DAUGHTER CHOSE [place] OR [facility], CHOICE COMPLETED. CM NOTIFIED [facility], , OF REFERRAL. CM FAXED REFERRAL TO D[facility] FOR [facility] AT [phone]. CM WAITING ADMISSION DETERMINATION FOR REHAB AT [facility]. FAMILY REPORTS HAVING RESTRICTION REMOVED FROM PT'S MEDICARE CASE THAT WILL ALLOW INTERMEDIATE FACILITY REHAB PLACEMENT. Rad Krishnamurthy, CASE MANAGEMENT DCP- Discharge Planning Updated by [id number]: Rad Krishnamurthy on 09/04/19 6:[address] Patient Name: SERENITY LEOS Encounter No: [id number] : 1930 Primary Insurance: MEDICARE A & B Anticipated DC Date: 09-03-2019 Planned Disposition: Jail Facility External Planned Provider: [facility], MEDICARE REHAB BED Discharge Planning Comments: CCM RECEIVED CALL FROM BRANDON OF THE [facility], PT HAS OPEN "MSP" CLAIM ATTACHED TO [employer]HER MEDICARE AND THIS HAS TO BE CLOSED IN ORDER FOR ANY INTERMEDIATE FACILITY TO GET PAYMENT FOR SERVICES. CM NOTIFIED PT AND PROVIDED MEDICARE PHONE NUMBER TO CALL AND TAKE CARE OF THIS. PT REPORTS HER SISTER WILL ASSIST HER WITH THIS TODAY. CM WAITING FOR PT TO CALL MEDICARE TO GET THE "MSP" TAKEN OFF OF HER MEDICARE TO ALLOW HER TO GO TO THE [facility] FOR REHAB SERVICES. Event Technician: Rad Krishnamurthy DCP- Discharge Planning Updated by [id number]: Rad Krishnamurthy on 09/03/19 2:[address] Patient Name: SERENITY LEOS Admission Status: Elective Accout number: [id number] Admission Date: 09-01-2019 : 1930 Admission Diagnosis: Attending: ROHAN NEWMAN Current LOS: 2 Anticipated DC Date: 09-03-2019 Planned Disposition: Jail Facility Primary Insurance: MEDICARE A & B PLANNED EXTERNAL PROVIDER: [facility], MEDICARE REHAB BED Discharge Planning Comments: CM RECEIVED ORDER FOR INPATIENT REHAB PRESCREENING, CM MET WITH PT IN ROOM TO DISCUSS DISCHARGE PLANNING AND NEEDS. PT REPORTS LIVING AT HOME INDEPENDENTLY ALONE; PT'S ADULT DAUGHTER IS "IN AND OUT" BUT DOES NOT LIVE IN THE HOME. PT HAS CANE, HOME OXYGEN FROM [facility], WALKER AND MUCOMIST MACHINE. PT HAS NO OUTSIDE SERVICES ASSISTING IN THE HOME. CM DISCUSSED AVAILABILITY OF HOME HEALTH, REHAB SERVICES AND MEDICAL EQUIPMENT. PT WANTS REHAB AT [place]. CHOICE SIGNED. IMPORTANT MESSAGE FROM MEDICARE PROVIDED AND EXPLAINED. PT REPORTS DAUGHTER WILL PICK HER UP AT DISCHARGE. CM LATER ADVISED BY [employer] OF INPATIENT REHAB IN MULTIDISCIPLINARY TEAM MEETING THAT PT IS TOO HIGH FUNCTIONING FOR INPATIENT REHAB. CM MET WITH PT IN ROOM, DISCUSSED INTERMEDIATE REHAB FACILITIES AND HOME HEALTH. PT AFRAID TO RETURN HOME ALONE WITH BLOOD CLOTS IN LEG. PT WANTS TO TRY TO GET INTO REHAB IN INTERMEDIATE FACLITY IN [place] AND DOES NOT WANT ONE IN [place]. PROVIDER LISTING REVIEWED, PT CHOICE SIGNED FOR THE [facility]. CM NOTIFIED BRANDON, OF THE [facility] OF REFERRAL FOR REHAB AND THAT PT IS READY TO DISCHARGE AND ASKED FOR QUICK REVIEW. CM FAXED REHAB REFERRAL TO THE [facility] VIA [facility] AT [phone]. CM WAITING ADMISSION DETERMINATION FROM THE [facility] FOR REHAB SERVICES. Event Technician: Rad Krishnamurthy DCPIA - Discharge Planning Initial Assessment Updated by [id number]: Rad Krishnamurthy on 09/03/19 3:27 pm * Is the patient Alert and Oriented? Yes * How many steps to enter\\exit or inside your home? 4 W/RAILS * PCP DR. AMADOR * Pharmacy [facility] IN [place] * Preadmission Environment Home Alone * ADLs Independent * Equipment Cane Other Oxygen Walker * Other Equipment HOME OXYGEN ONLY - [facility] [employer]IST MACHINE * List name and contact numbers for known caregivers / representatives who currently or will assist patient after discharge: KATIE RAINEY, R, [phone] * Verbal permission to speak to the caregivers and representatives has been obtained from the patient. N/A * Community resources currently utilized None * Please name any agencies selected above. NONE * Additional services required to return to the preadmission environment? No * Can the patient safely return to the preadmission environment? Yes * Has this patient been hospitalized within the prior 30 days at any hospital? No Coverage Notice Reviewer: [id number] Rudi Paz Notice Issued Date-Time: 08/31/2019 15:13 Notice Type: Medicare Outpatient Observation Notice Notice Delivered To: Patient Relationship to Patient: Self Foundry Metallurgist Name: Serenity Leos Delivery Method: HAND - Hand Delivered Myra Days: Prior Verbal Notification: Recipient Understood Notice: Yes Recipient Signature: Yes Med Rec Note Co-signed by Attending: Coverage Notice Comment: DOZIER delivered to and signed by patient. Original given to patient and one placed on the chart. Reviewer: [id number] Rudi Krishnamurthy Notice Issued Date-Time: 09/03/2019 9:35 Notice Type: Patient Choice Letter Notice Delivered To: Patient Relationship to Patient: Foundry Metallurgist Name: Delivery Method: HAND - Hand Delivered Myra Days: Prior Verbal Notification: Recipient Understood Notice: Yes Recipient Signature: Yes Med Rec Note Co-signed by Attending: Coverage Notice Comment: [place] [facility] Reviewer: [id number] Rudi Krishnamurthy Notice Issued Date-Time: 09/03/2019 9:35 Notice Type: IM Discharge Notice Notice Delivered To: Patient Relationship to Patient: Foundry Metallurgist Name: Delivery Method: HAND - Hand Delivered Myra Days: Prior Verbal Notification: Recipient Understood Notice: Yes Recipient Signature: Yes Med Rec Note Co-signed by Attending: Coverage Notice Comment: Reviewer: GRICEL Krishnamurthy Notice Issued Date-Time: 09/03/2019 13:20 Notice Type: Patient Choice Letter Notice Delivered To: Patient Relationship to Patient: Foundry Metallurgist Name: Delivery Method: HAND - Hand Delivered Myra Days: Prior Verbal Notification: Recipient Understood Notice: Yes Recipient Signature: Yes Med Rec Note Co-signed by Attending: Coverage Notice Comment: JEFFREY OTERO Reviewer: [id number] Krishnamurthy Notice Issued Date-Time: 09/04/2019 15:55 Notice Type: Patient Choice Letter Notice Delivered To: Patient Relationship to Patient: Foundry Metallurgist Name: Delivery Method: HAND - Hand Delivered Myra Days: Prior Verbal Notification: Recipient Understood Notice: Yes Recipient Signature: Yes Med Rec Note Co-signed by Attending: Coverage Notice Comment: MISA ALDANA OR ANSLEY Last DP export: 09/04/19 4:25 p Patient Name: SERENITY LEOS Page 06651 at 1644 All edits/amendments must be made on the electronic document DICTATION DATE: 09/05/191643 MOBILITY DEVELOPER: MODESTA 09/05/191643 RPT#: [id number] DC DATE: STATUS: ADM IN [facility] [address] [place] [address] END OF REPORT
[2019-09-05 17:42] VITALS: BP 139/66
--- NOTE | 2019-09-05 18:30 | NUR ---
IV LEAKING SO REMOVED. NEW 22G STARTED IN LEFT FOREARM.
[2019-09-05 20:44] VITALS: BP 118/56
[2019-09-06 01:16] VITALS: BP 115/59
[2019-09-06 05:09] LABS: BASOPHILS 0.2 % (0-2); EOSINOPHILS 7.7 % (0-7); HEMATOCRIT 30.1 % (36.0-48.0); HEMOGLOBIN 9.5 g/dL (12-16); IMMATURE GRANULOCYTES 0.4 % (0-5); LYMPHOCYTES 22.6 % (15-50); MCH 30.7 pg (26.0-34.0); MCHC 31.6 g/dL (31.0-37.0); MCV 97.4 fL (80.0-100.0); MEAN PLATELET VOLUME 10.5 fL (7.4-10.4); MONOCYTES 17.8 % (2-11); NEUTROPHILS 51.3 % (40-80); PLATELET COUNT 237 10x3/uL (130-400); RBC 3.09 10x6/uL (4.00-5.40); RDW 13.8 % (11.5-14.5); WBC 4.6 10x3/uL (4.8-10.8)
[2019-09-06 05:35] LABS: ANION GAP 13.3 mmol/L (8-16); CALCIUM 8.6 mg/dL (8.5-10.1); CARBON DIOXIDE 25.1 mmol/L (21.0-32.0); CREATININE - SERUM 1.9 mg/dL (0.6-1.3); POTASSIUM - SERUM 4.4 mmol/L (3.5-5.1)
[2019-09-06 05:41] LABS: INR 1.32 (0.85-1.17); PROTIME 16.3 SECONDS (11.6-15.0)
[2019-09-06 05:45] VITALS: BP 134/78
--- NOTE | 2019-09-06 07:17 | NUR ---
PT RESTING PEACEFULLY, EYES CLOSED BREATHS EVEN REGULAR AND UNLABORED. NO FAMILY AT BEDSIDE. NO SIGNS OR SYMPTOMS OF ACUTE DISTRESS NOTED AT THIS TIME. CL IN REACH, SRX2.
[2019-09-06 09:04] VITALS: BP 133/98
--- NOTE | 2019-09-06 10:17 | NUR ---
I have reviewed this patient and I concur with the Shift Assessment completed by the Licensed Practical Nurse today this shift.
--- NOTE | 2019-09-06 11:54 | NUR ---
PT AWAKE AND ORIENTED. C/O PAIN IN THE AFFECTED FOOT/LEG WELL ITCHING (CHRONIC PROB SINCE SHE HAS BEEN HERE. ADMINISTERED APPRORPIATE PRN MEDICATION) NO OTHER COMPLAINTS OR CONCERNS AT THIS TIME, NO FAMILY AT BEDSIDE. CL IN REACH, SRX2.
[2019-09-06 13:33] VITALS: BP 136/65
--- NOTE | 2019-09-06 13:47 | NUR ---
PT CONTINULOUSLY ASKS FOR PAIN MEDICATION AND BYNADRIL. EVERY HOUR SHE ASKS IF SHE CAN HAVE IT YET. HAS BEEN LESS THAN 2 HOURS SINCE LAST DOSE. CL IN REACH,S RX2. C/O FOOT PAIN
--- NOTE | 2019-09-06 16:43 | NUR ---
PT REQUESTED BENADRYL AGAIN, LESS THAN ONE HOUR AFTER GIVING PAIN MEDICATION AND INFORMING HER THE BENADRYL WAS EVERY 6 HOURS. PT INSISTS TO AID I TOLD HER SHE COULD HAVE IT AT 1600. I DID NOT TELL THE PT THAT. WILL ADMIN WHEN AVALIABLE.
--- NOTE | 2019-09-06 19:28 | NUR ---
RECEIVED LAYING IN BEDE WITH HOB ELEVATED. ALERT AND ORIENTED X4. UP AD NIKO TO B/R. IV TO LT WRIST SL.. RIGHT ANKLE SWOLLEN AND HAS SLIGHT REDNESS TO AREA. WARM TO TOUCH. DENIES ANY NEEDS AT THIS TIME.
[2019-09-06 20:00] VITALS: BP 113/55
[2019-09-07] VITALS: BP 134/77
[2019-09-07 04:00] VITALS: BP 120/57
[2019-09-07 05:10] LABS: BASOPHILS 0.4 % (0-2); EOSINOPHILS 6.1 % (0-7); IMMATURE GRANULOCYTES 0.2 % (0-5); LYMPHOCYTES 15.6 % (15-50); MCH 30.5 pg (26.0-34.0); MCHC 31.3 g/dL (31.0-37.0); MCV 97.6 fL (80.0-100.0); MEAN PLATELET VOLUME 10.6 fL (7.4-10.4); MONOCYTES 18.6 % (2-11); NEUTROPHILS 59.1 % (40-80); RBC 3.28 10x6/uL (4.00-5.40); RDW 13.8 % (11.5-14.5); WBC 5.1 10x3/uL (4.8-10.8)
[2019-09-07 05:12] LABS: PLATELET COUNT 289 10x3/uL (130-400)
[2019-09-07 05:18] LABS: INR 2.08 (0.85-1.17); PROTIME 23.1 SECONDS (11.6-15.0)
[2019-09-07 05:21] LABS: ANION GAP 10.8 mmol/L (8-16); CALCIUM 8.6 mg/dL (8.5-10.1); CARBON DIOXIDE 27.5 mmol/L (21.0-32.0); POTASSIUM - SERUM 4.3 mmol/L (3.5-5.1)
--- NOTE | 2019-09-07 09:50 | NUR ---
PT ALERT AND OREINTED, SITTING IN BED EATING BREAKFAST WHEN I ENTERED ROOM. COMPLAINTS OF PAIN IN AFFECTED ANKLE AND PERITIS. ADMIN PAIN MEDS AND BENYDRIL PER REQUEST AND MD ORDER. NO OTHER COMPLAINTS OR CONCERNS AT THIS TIME. CL IN REACH, SRX2, NO FAMILY AT BEDSIDE
[2019-09-07 10:04] VITALS: BP 127/74
--- NOTE | 2019-09-07 10:22 | NUR ---
I have reviewed this patient and I concur with the Shift Assessment completed by the Licensed Practical Nurse today this shift.
[2019-09-07 13:48] VITALS: BP 115/61
[2019-09-07 17:38] VITALS: BP 133/75
--- NOTE | 2019-09-07 18:20 | NUR ---
PT AWAKE AN DORIENTED, C/O OF PAIN AND ITCHING BUT PAIN MEDS ARE NOT CURRENTLY AVALIABLE. WILL ADMIN WHEN AVALIABLE. NO OTHER COMPLAITNS OR CONCERNS AT THIS TIME. I/V SL. CL INR EACH, SRX2.
[2019-09-07 20:00] VITALS: BP 150/81
[2019-09-08 04:00] VITALS: BP 153/80
--- NOTE | 2019-09-08 05:08 | NUR ---
PT RESTED QUIETLY DURING THE NIGHT. NO C/O OF DISCOMFORT. WILL CTM
[2019-09-08 07:18] LABS: INR 3.47 (0.85-1.17); PROTIME 34.3 SECONDS (11.6-15.0)
[2019-09-08 07:34] LABS: ANION GAP 10.5 mmol/L (8-16); CALCIUM 8.5 mg/dL (8.5-10.1); CARBON DIOXIDE 29.5 mmol/L (21.0-32.0); CREATININE - SERUM 1.8 mg/dL (0.6-1.3)
[2019-09-08 08:07] LABS: BASOPHILS 0.3 % (0-2); EOSINOPHILS 9.9 % (0-7); HEMATOCRIT 33.1 % (36.0-48.0); HEMOGLOBIN 10.5 g/dL (12-16); IMMATURE GRANULOCYTES 0.3 % (0-5); LYMPHOCYTES 21.8 % (15-50); MCH 30.9 pg (26.0-34.0); MCHC 31.7 g/dL (31.0-37.0); MCV 97.4 fL (80.0-100.0); MEAN PLATELET VOLUME 10.6 fL (7.4-10.4); NEUTROPHILS 52.7 % (40-80); PLATELET COUNT 283 10x3/uL (130-400); RDW 14.1 % (11.5-14.5)
[2019-09-08 08:13] LABS: WBC 3.5 10x3/uL (4.8-10.8)
--- NOTE | 2019-09-08 08:55 | MORECARE ---
CASE MANAGEMENT DISCHARGE SUMMARY PATIENT: SERENITY LEOS UNIT: [id number] ADM DATE: 09/01/19 AGE: 89 : 30 SEX: F ROOM/BED: D.2102 AUTHOR: NAKIA,DOC PHYSICIAN: REFERRING PHYSICIAN: ROHAN NEWMAN MD DATE OF SERVICE: 09/08/19 Discharge Plan Patient Name: SERENITY LEOS Facility: [facility]:[place] : 1930 Planned Disposition: Home with Home Health Anticipated Discharge Date: 09/08/19 Discharge Date: Expected LOS: 7 Initial Reviewer: [id number] Initial Review Date: 08/31/2019 Generated: 09/08/19 9:54 am Comments DCP- Discharge Planning Updated by [id number]: Rad Krishnamurthy on 09/08/19 7:[address] Patient Name: SERENITY LEOS Encounter No: [id number] : 1930 Primary Insurance: MEDICARE A & B Anticipated DC Date: 09-08-2019 Planned Disposition: HOME HEALTH External Planned Provider: [facility] LATE ENTRY FROM 09-05-19, 1630 HOURS: DCP follow-up note: [facility] INFORMED CM THAT PT HAS BEEN ACCEPTED AT [facility] FOR REHAB, THEY ARE NOT ABLE TO ACCEPT UNTIL 09-08-19. ON 09-08-19 AT APPROXIMATELY 0820 HOURS, CM MET WITH PT IN ROOM TO DISCUSS GOING TO REHAB TODAY AT [facility]. PT INFORMED CM THAT SHE IS NOT GOING TO REHAB AND WILL BE GOING HOME TODAY. PT HAS TALKED TO HER CHILDREN AND DUE TO THE VIRUS THAT IS GOING AROUND, PT FEELS SAFER AT HOME THAN REHAB. PT ASKED FOR HOME HEALTH, PROVIDER LISTING REVIEWED, PT HAS NOT CHOICE IN PROVIDER. IMPORTANT MESSAGE FROM MEDICARE PROVIDED AND EXPLAINED. PT REPORTS SHE WILL CALL SOMEONE TO PICK HER UP TODAY AT DISCHARGE. CM TO ARRANGE HOME HEALTH WITH [facility] WITH PHYSICIAN AGREEMENT AND ORDERS. Rad Krishnamurthy, CASE MANAGEMENT DCP- Discharge Planning Updated by [id number]: Rad Krishnamurthy on 09/04/19 4:[address] Patient Name: SERENITY LEOS Encounter No: [id number] : 1930 Primary Insurance: MEDICARE A & B Anticipated DC Date: 09-03-2019 Planned Disposition: Shelter Facility External Planned Provider: [facility] OR [facility], MEDICARE REHAB BED DCP follow-up note: CM SPOKE TO PT IN ROOM WHO HAD DAUGHTER, KATIE RAINEY ON PHONE ). KATIE REPORTS PT'S SISTER CALLED MEDICARE AND REMOVED THE "MSP" AND IT SHOULD BE CLEAR TO ENTER REHAB WITHIN THE NEXT 48 HOURS. PT STATES SHE DOES NOT WANT TO GO TO THE [facility] HER FELL AND IN THE FACILITY. CM REVIEWED [facility] FACILITY LIST, PT AND DAUGHTER CHOSE [facility] OR [facility], CHOICE COMPLETED. CM NOTIFIED [facility], , OF REFERRAL. CM FAXED REFERRAL TO [facility] AND [facility] AT [phone]. CM WAITING ADMISSION DETERMINATION FOR REHAB AT [facility]. FAMILY REPORTS HAVING RESTRICTION REMOVED FROM PT'S MEDICARE CASE THAT WILL ALLOW [facility] FACILITY REHAB PLACEMENT. Rad Krishnamurthy, CASE MANAGEMENT DCP- Discharge Planning Updated by [id number]: Rad Krishnamurthy on 09/04/19 6:[address] Patient Name: SERENITY LEOS Encounter No: [id number] : 1930 Primary Insurance: MEDICARE A & B Anticipated DC Date: 09-03-2019 Planned Disposition: Shelter Facility External Planned Provider: [facility], MEDICARE REHAB BED Discharge Planning Comments: CCM RECEIVED CALL FROM BRANDON OF THE [facility], PT HAS OPEN "MSP" CLAIM ATTACHED TO [employer] MEDICARE AND THIS HAS TO BE CLOSED IN ORDER FOR ANY [facility] FACILITY TO GET PAYMENT FOR SERVICES. CM NOTIFIED PT AND PROVIDED MEDICARE PHONE NUMBER TO CALL AND TAKE CARE OF THIS. PT REPORTS HER SISTER WILL ASSIST HER WITH THIS TODAY. CM WAITING FOR PT TO CALL MEDICARE TO GET THE "MSP" TAKEN OFF OF HER MEDICARE TO ALLOW HER TO GO TO THE [facility] FOR REHAB SERVICES. Stucco Laborer: Rad Krishnamurthy DCP- Discharge Planning Updated by [id number]: Rad Krishnamurthy on 09/03/19 2:[address] Patient Name: SERENITY LEOS Admission Status: Elective Accout number: [id number] Admission Date: 09-01-2019 : 03-09-1931 Admission Diagnosis: Attending: ROHAN NEWMAN Current LOS: 2 Anticipated DC Date: 09-03-2019 Planned Disposition: Shelter Facility Primary Insurance: MEDICARE A & B PLANNED EXTERNAL PROVIDER: [facility], MEDICARE REHAB BED Discharge Planning Comments: CM RECEIVED ORDER FOR INPATIENT REHAB PRESCREENING, CM MET WITH PT IN ROOM TO DISCUSS DISCHARGE PLANNING AND NEEDS. PT REPORTS LIVING AT HOME INDEPENDENTLY ALONE; PT'S ADULT DAUGHTER IS "IN AND OUT" BUT DOES NOT LIVE IN THE HOME. PT HAS CANE, HOME OXYGEN FROM [facility], WALKER AND [employer] MACHINE. PT HAS NO OUTSIDE SERVICES ASSISTING IN THE HOME. CM DISCUSSED AVAILABILITY OF HOME HEALTH, REHAB SERVICES AND MEDICAL EQUIPMENT. PT WANTS REHAB AT [facility]. CHOICE SIGNED. IMPORTANT MESSAGE FROM MEDICARE PROVIDED AND EXPLAINED. PT REPORTS DAUGHTER WILL PICK HER UP AT DISCHARGE. CM LATER ADVISED BY [employer] OF INPATIENT REHAB IN MULTIDISCIPLINARY TEAM MEETING THAT PT IS TOO HIGH FUNCTIONING FOR INPATIENT REHAB. CM MET WITH PT IN ROOM, DISCUSSED [facility] RE[facility]AB FACILITIES AND HOME HEALTH. PT AFRAID TO RETURN HOME ALONE WITH BLOOD CLOTS IN LEG. PT WANTS TO TRY TO GET INTO REHAB IN [facility] FACLITY IN [place] AND DOES NOT WANT ONE IN [place]. PROVIDER LISTING REVIEWED, PT CHOICE SIGNED FOR THE [facility]. CM NOTIFIED BRANDON, OF THE [facility] OF REFERRAL FOR REHAB AND THAT PT IS READY TO DISCHARGE AND ASKED FOR QUICK REVIEW. CM FAXED REHAB REFERRAL TO THE [facility] [place] AT [phone]. CM WAITING ADMISSION DETERMINATION FROM THE [facility] FOR REHAB SERVICES. Stucco Laborer: Rad Krishnamurthy DCPIA - Discharge Planning Initial Assessment Updated by [id number]: Rad Krishnamurthy on 09/03/19 3:27 pm * Is the patient Alert and Oriented? Yes * How many steps to enter\\exit or inside your home? 4 W/RAILS * PCP DR. AMADOR * Pharmacy [facility] IN [place] * Preadmission Environment Home Alone * ADLs Independent * Equipment Cane Other Oxygen Walker * Other Equipment HOME OXYGEN ONLY - [facility] [employer] * List name and contact numbers for known caregivers / representatives who currently or will assist patient after discharge: KATIE RAINEY, DTR, [phone] * Verbal permission to speak to the caregivers and representatives has been obtained from the patient. N/A * Community resources currently utilized None * Please name any agencies selected above. NONE * Additional services required to return to the preadmission environment? No * Can the patient safely return to the preadmission environment? Yes * Has this patient been hospitalized within the prior 30 days at any hospital? No Coverage Notice Reviewer: [id number] Rudi Betsey Paz Notice Issued Date-Time: 08/31/2019 15:13 Notice Type: Medicare Outpatient Observation Notice Notice Delivered To: Patient Relationship to Patient: Self Certified Technician Name: Serenity Leos Delivery Method: HAND - Hand Delivered Myra Days: Prior Verbal Notification: Recipient Understood Notice: Yes Recipient Signature: Yes Med Rec Note Co-signed by Attending: Coverage Notice Comment: DOZIER delivered to and signed by patient. Original given to patient and one placed on the chart. Reviewer: [id number] Krishnamurthy Notice Issued Date-Time: 09/03/2019 9:35 Notice Type: Patient Choice Letter Notice Delivered To: Patient Relationship to Patient: Certified Technician Name: Delivery Method: HAND - Hand Delivered Myra Days: Prior Verbal Notification: Recipient Understood Notice: Yes Recipient Signature: Yes Med Rec Note Co-signed by Attending: [facility]age [facility] Reviewer: [id number] Krishnamurthy Notice Issued Date-Time: 09/03/2019 9:35 Notice Type: IM Discharge Notice Notice Delivered To: Patient Relationship to Patient: Certified Technician Name: Delivery Method: HAND - Hand Delivered Myra Days: Prior Verbal Notification: Recipient Understood Notice: Yes Recipient Signature: Yes Med Rec Note Co-signed by Attending: Coverage Notice Comment: Reviewer: GRICEL Krishnamurthy Notice Issued Date-Time: 09/03/2019 13:20 Notice Type: Patient Choice Letter Notice Delivered To: Patient Relationship to Patient: Certified Technician Name: Delivery Method: HAND - Hand Delivered Myra Days: Prior Verbal Notification: Recipient Understood Notice: Yes Recipient Signature: Yes Med Rec Note Co-signed by Attending: Coverage Notice Comment: JEFFREY OTERO Reviewer: [id number] Krishnamurthy Notice Issued Date-Time: 09/04/2019 15:55 Notice Type: Patient Choice Letter Notice Delivered To: Patient Relationship to Patient: Certified Technician Name: Delivery Method: HAND - Hand Delivered Myra Days: Prior Verbal Notification: Recipient Understood Notice: Yes Recipient Signature: Yes Med Rec Note Co-signed by Attending: Coverage Notice Comment: MISA Barnes DP export: 3/13/20 3:44 p Patient Name: SERENITY LEOS Page 19472 at 0855 All edits/amendments must be made on the electronic document DICTATION DATE: 09/08/19853 CPS TEAM LEAD: MODESTA 09/08/19853 RPT#: [id number] DC DATE: STATUS: ADM IN [facility] [address] [place] [address] END OF REPORT
--- NOTE | 2019-09-08 10:19 | MORECARE ---
CASE MANAGEMENT DISCHARGE SUMMARY PATIENT: SERENITY LEOS UNIT: [id number] ADM DATE: 09/01/19 AGE: 89 : 30 SEX: F ROOM/BED: D.2107 AUTHOR: NAKIA,DOC PHYSICIAN: REFERRING PHYSICIAN: ROHAN NEWMAN MD DATE OF SERVICE: 09/08/19 Discharge Plan Patient Name: SERENITY LEOS Facility: [facility]:[place] : 1930 Planned Disposition: Home with Home Health Anticipated Discharge Date: 09/08/19 Discharge Date: Expected LOS: 7 Initial Reviewer: [id number] Initial Review Date: 08/31/2019 Generated: 09/08/19 11:19 am Comments DCP- Discharge Planning Updated by [email or web address]: Rad Krishnamurthy on 09/08/19 7:[address] Patient Name: SERENITY LEOS Encounter No: [id number] : 1930 Primary Insurance: MEDICARE A & B Anticipated DC Date: 09-08-2019 Planned Disposition: HOME HEALTH External Planned Provider: [facility] LATE ENTRY FROM 09-05-19, 1630 HOURS: DCP follow-up note: [facility] INFORMED CM THAT PT HAS BEEN ACCEPTED AT [facility] FOR REHAB, THEY ARE NOT ABLE TO ACCEPT UNTIL 09-08-19. ON 09-08-19 AT APPROXIMATELY 0820 HOURS, CM MET WITH PT IN ROOM TO DISCUSS GOING TO REHAB TODAY AT [facility]. PT INFORMED CM THAT SHE IS NOT GOING TO REHAB AND WILL BE GOING HOME TODAY. PT HAS TALKED TO HER CHILDREN AND DUE TO THE VIRUS THAT IS GOING AROUND, PT FEELS SAFER AT HOME THAN REHAB. PT ASKED FOR HOME HEALTH, PROVIDER LISTING REVIEWED, PT HAS NOT CHOICE IN PROVIDER. IMPORTANT MESSAGE FROM MEDICARE PROVIDED AND EXPLAINED. PT REPORTS SHE WILL CALL SOMEONE TO PICK HER UP TODAY AT DISCHARGE. CM TO ARRANGE HOME HEALTH WITH [facility] WITH PHYSICIAN AGREEMENT AND ORDERS. Rad Krishnamurthy, CASE MANAGEMENT DCP- Discharge Planning Updated by [id number]: Rad Krishnamurthy on 09/04/19 4:[address] Patient Name: SERENITY LEOS Encounter No: [id number] : 1930 Primary Insurance: MEDICARE A & B Anticipated DC Date: 09-03-2019 Planned Disposition: [facility] Facility External Planned Provider: [facility] OR [facility], MEDICARE REHAB BED DCP follow-up note: CM SPOKE TO PT IN ROOM WHO HAD DAUGHTER, KTAIE RAINEY ON PHONE ). KATIE REPORTS PT'S SISTER CALLED MEDICARE AND REMOVED THE "MSP" AND IT SHOULD BE CLEAR TO ENTER REHAB WITHIN THE NEXT 48 HOURS. PT STATES SHE DOES NOT WANT TO GO TO THE [facility] HER FELL AND IN THE FACILITY. CM REVIEWED [facility] FACILITY L[facility], PT AND DAUGHTER CHOSE [facility] OR [facility], CHOICE COMPLETED. CM NOTIFIED [facility], , OF REFERRAL. CM FAXED REFERRAL TO [facility] FOR [facility] AND [facility] AT [phone]. CM WAITING ADMISSION DETERMINATION FOR REHAB AT [facility]. FAMILY REPORTS HAVING RESTRICTION REMOVED FROM PT'S MEDICARE CASE THAT WILL ALLOW [facility]ILITY REHAB PLACEMENT. Rad Krishnamurthy, CASE MANAGEMENT DCP- Discharge Planning Updated by [id number]: Rad Krishnamurthy on 09/04/19 6:[address] Patient Name: SERENITY LEOS Encounter No: [id number] : 1930 Primary Insurance: MEDICARE A & B Anticipated DC Date: 09-03-2019 Planned Disposition: [facility] Facility External Planned Provider: [facility], MEDICARE REHAB BED Discharge Planning Comments: CCM RECEIVED CALL FROM BRANDON OF [facility], PT HAS OPEN "MSP" CLAIM ATTACHED TO [employer] MEDICARE AND THIS HAS TO BE CLOSED IN ORDER FOR ANY [facility] FACILITY TO GET PAYMENT FOR SERVICES. CM NOTIFIED PT AND PROVIDED MEDICARE PHONE NUMBER TO CALL AND TAKE CARE OF THIS. PT REPORTS HER SISTER WILL ASSIST HER WITH THIS TODAY. CM WAITING FOR PT TO CALL MEDICARE TO GET THE "MSP" TAKEN OFF OF HER MEDICARE TO ALLOW HER TO GO TO THE [facility] FOR REHAB SERVICES. Database Administration Project Manager: Rad Krishnamurthy DCP- Discharge Planning Updated by [id number]: Rad Krishnamurthy on 09/03/19 2:[address] Patient Name: SERENITY LEOS Admission Status: Elective Accout number: [id number] Admission Date: 09-01-2019 : 03-09-1931 Admission Diagnosis: Attending: ROHAN NEWMAN Current LOS: 2 Anticipated DC Date: 09-03-2019 Planned Disposition: [facility] Facility Primary Insurance: MEDICARE A & B PLANNED EXTERNAL PROVIDER: [facility], MEDICARE REHAB BED Discharge Planning Comments: CM RECEIVED ORDER FOR INPATIENT REHAB PRESCREENING, CM MET WITH PT IN ROOM TO DISCUSS DISCHARGE PLANNING AND NEEDS. PT REPORTS LIVING AT HOME INDEPENDENTLY ALONE; PT'S ADULT DAUGHTER IS "IN AND OUT" BUT DOES NOT LIVE IN THE HOME. PT HAS CANE, HOME OXYGEN FROM [facility], WALKER AND [employer] MACHINE. PT HAS NO OUTSIDE SERVICES ASSISTING IN THE HOME. CM DISCUSSED AVAILABILITY OF HOME HEALTH, REHAB SERVICES AND MEDICAL EQUIPMENT. PT WANTS REHAB AT [place]. CHOICE SIGNED. IMPORTANT MESSAGE FROM MEDICARE PROVIDED AND EXPLAINED. PT REPORTS DAUGHTER WILL PICK HER UP AT DISCHARGE. CM LATER ADVISED BY [employer] OF INPATIENT REHAB IN MULTIDISCIPLINARY TEAM MEETING THAT PT IS TOO HIGH FUNCTIONING FOR INPATIENT REHAB. CM MET WITH PT IN ROOM, DISCUSSED [facility] RE[facility] FACILITIES AND HOME HEALTH. PT AFRAID TO RETURN HOME ALONE WITH BLOOD CLOTS IN LEG. PT WANTS TO TRY TO GET INTO REHAB IN [facility] IN [place] AND DOES NOT WANT ONE IN [place]. PROVIDER LISTING REVIEWED, PT CHOICE SIGNED FOR THE [facility]. CM NOTIFIED BRANDON, OF THE [facility] OF REFERRAL FOR REHAB AND THAT PT IS READY TO DISCHARGE AND ASKED FOR QUICK REVIEW. CM FAXED REHAB REFERRAL TO [facility]IA [facility] AT [phone]. CM WAITING ADMISSION DETERMINATION FROM THE [facility] FOR REHAB SERVICES. Database Administration Project Manager: Rad Krishnamurthy DCPIA - Discharge Planning Initial Assessment Updated by [id number]: Rad Krishnamurthy on 09/03/19 3:27 pm * Is the patient Alert and Oriented? Yes * How many steps to enter\\exit or inside your home? 4 W/RAILS * PCP DR. AMADOR * Pharmacy [facility] IN [place] * Preadmission Environment Home Alone * ADLs Independent * Equipment Cane Other Oxygen Walker * Other Equipment HOME OXYGEN ONLY - [facility] [facility] [facility] [employer] * List name and contact numbers for known caregivers / representatives who currently or will assist patient after discharge: KATIE RAINEY, DTR, [phone] * Verbal permission to speak to the caregivers and representatives has been obtained from the patient. N/A * Community resources currently utilized None * Please name any agencies selected above. NONE * Additional services required to return to the preadmission environment? No * Can the patient safely return to the preadmission environment? Yes * Has this patient been hospitalized within the prior 30 days at any hospital? No External Providers External Provider: [facility] Next Contact Date: 09/08/2019 Service Request Date: Service Type: Resolution: Reviewer: Comments: Coverage Notice Reviewer: [id number] Rudi Paz Notice Issued Date-Time: 08/31/2019 15:13 Notice Type: Medicare Outpatient Observation Notice Notice Delivered To: Patient Relationship to Patient: Self Post Framer Name: Serenity Leos Delivery Method: HAND - Hand Delivered Myra Days: Prior Verbal Notification: Recipient Understood Notice: Yes Recipient Signature: Yes Med Rec Note Co-signed by Attending: Coverage Notice Comment: DOZIER delivered to and signed by patient. Original given to patient and one placed on the chart. Reviewer: [id number] Rudi Krishnamurthy Notice Issued Date-Time: 09/03/2019 9:35 Notice Type: Patient Choice Letter Notice Delivered To: Patient Relationship to Patient: Post Framer Name: Delivery Method: HAND - Hand Delivered Myra Days: Prior Verbal Notification: Recipient Understood Notice: Yes Recipient Signature: Yes Med Rec Note Co-signed by Attending: Coverage Notice Comment: [facility] Reviewer: [id number] Krishnamurthy Notice Issued Date-Time: 09/03/2019 9:35 Notice Type: IM Discharge Notice Notice Delivered To: Patient Relationship to Patient: Post Framer Name: Delivery Method: HAND - Hand Delivered Myra Days: Prior Verbal Notification: Recipient Understood Notice: Yes Recipient Signature: Yes Med Rec Note Co-signed by Attending: Coverage Notice Comment: Reviewer: [id number] Krishnamurthy Notice Issued Date-Time: 09/03/2019 13:20 Notice Type: Patient Choice Letter Notice Delivered To: Patient Relationship to Patient: Post Framer Name: Delivery Method: HAND - Hand Delivered Myra Days: Prior Verbal Notification: Recipient Understood Notice: Yes Recipient Signature: Yes Med Rec Note Co-signed by Attending: Coverage Notice Comment: JEFFREY OTERO Reviewer: [id number] Rudi Krishnamurthy Notice Issued Date-Time: 09/04/2019 15:55 Notice Type: Patient Choice Letter Notice Delivered To: Patient Relationship to Patient: Post Framer Name: Delivery Method: HAND - Hand Delivered Myra Days: Prior Verbal Notification: Recipient Understood Notice: Yes Recipient Signature: Yes Med Rec Note Co-signed by Attending: Coverage Notice Comment: MISA PANCHAL Reviewer: [id number] Rudi Krishnamurthy Notice Issued Date-Time: 09/08/2019 8:30 Notice Type: IM Discharge Notice Notice Delivered To: Patient Relationship to Patient: Post Framer Name: Delivery Method: HAND - Hand Delivered Myra Days: Prior Verbal Notification: Recipient Understood Notice: Yes Recipient Signature: Yes Med Rec Note Co-signed by Attending: Coverage Notice Comment: Last DP export: 09/08/19 7:55 a Patient Name: SERENITY LEOS Page [id number] at 1019 All edits/amendments must be made on the electronic document DICTATION DATE: 09/08/19 1019 DIRECTOR OF DONOR RELATIONS: MODESTA 09/08/19 1019 RPT#: [id number] DC DATE: STATUS: ADM IN [facility] [address] [place] [address] END OF REPORT
--- NOTE | 2019-09-08 10:27 | MORECARE ---
CASE MANAGEMENT DISCHARGE SUMMARY PATIENT: SERENITY LEOS UNIT: [id number] ADM DATE: 09/01/19 AGE: 89 : 30 SEX: F ROOM/BED: D.2100 AUTHOR: NAKIA,DOC PHYSICIAN: REFERRING PHYSICIAN: ROHAN NEWMAN MD DATE OF SERVICE: 09/08/19 Discharge Plan Patient Name: SERENITY LEOS Facility: [facility]:[place] : 1930 Planned Disposition: Home with Home Health Anticipated Discharge Date: 09/08/19 Discharge Date: Expected LOS: 7 Initial Reviewer: [id number] Initial Review Date: 08/31/2019 Generated: 09/08/19 11:27 am Comments DCP- Discharge Planning Updated by [id number]: Rad Krishnamurthy on 09/08/19 7:[address] Patient Name: SERENITY LEOS Encounter No: [id number] : 1930 Primary Insurance: MEDICARE A & B Anticipated DC Date: 09-08-2019 Planned Disposition: HOME HEALTH External Planned Provider: [facility] LATE ENTRY FROM 09-05-19, 1630 HOURS: DCP follow-up note: [facility] INFORMED CM THAT PT HAS BEEN ACCEPTED AT [facility] FOR REHAB, THEY ARE NOT ABLE TO ACCEPT UNTIL 09-08-19. ON 09-08-19 AT APPROXIMATELY 0820 HOURS, CM MET WITH PT IN ROOM TO DISCUSS GOING TO REHAB TODAY AT [facility]. PT INFORMED CM THAT SHE IS NOT GOING TO REHAB AND WILL BE GOING HOME TODAY. PT HAS TALKED TO HER CHILDREN AND DUE TO THE VIRUS THAT IS GOING AROUND, PT FEELS SAFER AT HOME THAN REHAB. PT ASKED FOR HOME HEALTH, PROVIDER LISTING REVIEWED, PT HAS NOT CHOICE IN PROVIDER. IMPORTANT MESSAGE FROM MEDICARE PROVIDED AND EXPLAINED. PT REPORTS SHE WILL CALL SOMEONE TO PICK HER UP TODAY AT DISCHARGE. CM TO ARRANGE HOME HEALTH WITH [facility] WITH PHYSICIAN AGREEMENT AND ORDERS. Rad Krishnamurthy, CASE MANAGEMENT DCP- Discharge Planning Updated by [id number]: Rad Krishnamurthy on 09/04/19 4:[address] Patient Name: SERENITY LEOS Encounter No: [id number] : 1930 Primary Insurance: MEDICARE A & B Anticipated DC Date: 09-03-2019 Planned Disposition: Correction Facility External Planned Provider: [facility], MEDICARE REHAB BED DCP follow-up note: CM SPOKE TO PT IN ROOM WHO HAD DAUGHTER, KATIE RAINEY ON PHONE ). KATIE REPORTS PT'S SISTER CALLED MEDICARE AND REMOVED THE "MSP" AND IT SHOULD BE CLEAR TO ENTER REHAB WITHIN THE NEXT 48 HOURS. PT STATES SHE DOES NOT WANT TO GO TO THE [facility] HER FELL AND IN THE FACILITY. CM REVIEWED HALFWAY FACILITY LIST, PT AND DAUGHTER CHOSE [facility] OR [facility], CHOICE COMPLETED. CM NOTIFIED [facility], , OF REFERRAL. CM FAXED REFERRAL TO [facility] AND [facility] AT [phone]. CM WAITING ADMISSION DETERMINATION FOR REHAB AT [facility]. FAMILY REPORTS HAVING RESTRICTION REMOVED FROM PT'S MEDICARE CASE THAT WILL ALLOW HALFWAY FACILITY REHAB PLACEMENT. Rad Krishnamurthy, CASE MANAGEMENT DCP- Discharge Planning Updated by [id number]: Rad Krishnamurthy on 09/04/19 6:[address] Patient Name: SERENITY LEOS Encounter No: [id number] : 1930 Primary Insurance: MEDICARE A & B Anticipated DC Date: 09-03-2019 Planned Disposition: Correction Facility External Planned Provider: [facility], MEDICARE REHAB BED Discharge Planning Comments: CCM RECEIVED CALL FROM BRANDON OF THE [facility], PT HAS OPEN "MSP" CLAIM ATTACHED TO [employer]HER MEDICARE AND THIS HAS TO BE CLOSED IN ORDER FOR ANY HALFWAY FACILITY TO GET PAYMENT FOR SERVICES. CM NOTIFIED PT AND PROVIDED MEDICARE PHONE NUMBER TO CALL AND TAKE CARE OF THIS. PT REPORTS HER SISTER WILL ASSIST HER WITH THIS TODAY. CM WAITING FOR PT TO CALL MEDICARE TO GET THE "MSP" TAKEN OFF OF HER MEDICARE TO ALLOW HER TO GO TO THE [facility] FOR REHAB SERVICES. Straight Line Edger: Rad Krishnamurthy DCP- Discharge Planning Updated by [id number]: Rad Krishnamurthy on 09/03/19 2:[address] Patient Name: SERENITY LEOS Admission Status: Elective Accout number: [id number] Admission Date: 09-01-2019 : 03-09-1931 Admission Diagnosis: Attending: ROHAN NEWMAN Current LOS: 2 Anticipated DC Date: 09-03-2019 Planned Disposition: Correction Facility Primary Insurance: MEDICARE A & B PLANNED EXTERNAL PROVIDER: [facility], MEDICARE REHAB BED Discharge Planning Comments: CM RECEIVED ORDER FOR INPATIENT REHAB PRESCREENING, CM MET WITH PT IN ROOM TO DISCUSS DISCHARGE PLANNING AND NEEDS. PT REPORTS LIVING AT HOME INDEPENDENTLY ALONE; PT'S ADULT DAUGHTER IS "IN AND OUT" BUT DOES NOT LIVE IN THE HOME. PT HAS CANE, HOME OXYGEN FROM [facility], WALKER AND MUCOMIST MACHINE. PT HAS NO OUTSIDE SERVICES ASSISTING IN THE HOME. CM DISCUSSED AVAILABILITY OF HOME HEALTH, REHAB SERVICES AND MEDICAL EQUIPMENT. PT WANTS REHAB AT [place]. CHOICE SIGNED. IMPORTANT MESSAGE FROM MEDICARE PROVIDED AND EXPLAINED. PT REPORTS DAUGHTER WILL PICK HER UP AT DISCHARGE. CM LATER ADVISED BY [employer] OF INPATIENT REHAB IN MULTIDISCIPLINARY TEAM MEETING THAT PT IS TOO HIGH FUNCTIONING FOR INPATIENT REHAB. CM MET WITH PT IN ROOM, DISCUSSED HALFWAY REHAB FACILITIES AND HOME HEALTH. PT AFRAID TO RETURN HOME ALONE WITH BLOOD CLOTS IN LEG. PT WANTS TO TRY TO GET INTO REHAB IN [facility] IN [place] AND DOES NOT WANT ONE IN [place]. PROVIDER LISTING REVIEWED, PT CHOICE SIGNED FOR THE [facility]. CM NOTIFIED BRANDON, OF THE [facility] OF REFERRAL FOR REHAB AND THAT PT IS READY TO DISCHARGE AND ASKED FOR QUICK REVIEW. CM FAXED REHAB REFERRAL TO THE [facility]IA [place] AT [phone]. CM WAITING ADMISSION DETERMINATION FROM THE [facility] FOR REHAB SERVICES. Straight Line Edger: Rad Krishnamurthy DCPIA - Discharge Planning Initial Assessment Updated by [id number]: Rad Krishnamurthy on 09/03/19 3:27 pm * Is the patient Alert and Oriented? Yes * How many steps to enter\\exit or inside your home? 4 W/RAILS * PCP DR. AMADOR * Pharmacy [facility] IN [place] * Preadmission Environment Home Alone * ADLs Independent * Equipment Cane Other Oxygen Walker * Other Equipment HOME OXYGEN ONLY - [facility] [employer] [facility] * List name and contact numbers for known caregivers / representatives who currently or will assist patient after discharge: KATIE RAINEY, DTR, [phone] * Verbal permission to speak to the caregivers and representatives has been obtained from the patient. N/A * Community resources currently utilized None * Please name any agencies selected above. NONE * Additional services required to return to the preadmission environment? No * Can the patient safely return to the preadmission environment? Yes * Has this patient been hospitalized within the prior 30 days at any hospital? No Coverage Notice Reviewer: [id number] Rudi Betsey Paz Notice Issued Date-Time: 08/31/2019 15:13 Notice Type: Medicare Outpatient Observation Notice Notice Delivered To: Patient Relationship to Patient: Self Shipping And Receiving Supervisor Name: Serenity Leos Delivery Method: HAND - Hand Delivered Myra Days: Prior Verbal Notification: Recipient Understood Notice: Yes Recipient Signature: Yes Med Rec Note Co-signed by Attending: Coverage Notice Comment: DOZIER delivered to and signed by patient. Original given to patient and one placed on the chart. Reviewer: [id number] Krishnamurthy Notice Issued Date-Time: 09/03/2019 9:35 Notice Type: Patient Choice Letter Notice Delivered To: Patient Relationship to Patient: Shipping And Receiving Supervisor Name: Delivery Method: HAND - Hand Delivered Myra Days: Prior Verbal Notification: Recipient Understood Notice: Yes Recipient Signature: Yes Med Rec Note Co-signed by Attending: Coverage Notice Comment[facility] Reviewer: [id number] Rudi Krishnamurthy Notice Issued Date-Time: 09/03/2019 13:20 Notice Type: Patient Choice Letter Notice Delivered To: Patient Relationship to Patient: Shipping And Receiving Supervisor Name: Delivery Method: HAND - Hand Delivered Myra Days: Prior Verbal Notification: Recipient Understood Notice: Yes Recipient Signature: Yes Med Rec Note Co-signed by Attending: Coverage Notice Comment: JEFFREY OTERO Reviewer: [id number] Rudi Krishnamurthy Notice Issued Date-Time: 09/04/2019 15:55 Notice Type: Patient Choice Letter Notice Delivered To: Patient Relationship to Patient: Shipping And Receiving Supervisor Name: Delivery Method: HAND - Hand Delivered Myra Days: Prior Verbal Notification: Recipient Understood Notice: Yes Recipient Signature: Yes Med Rec Note Co-signed by Attending: Coverage Notice Comment: MISA PANCHAL Reviewer: [id number] Rudi Krishnamurthy Notice Issued Date-Time: 09/03/2019 9:35 Notice Type: IM Discharge Notice Notice Delivered To: Patient Relationship to Patient: Shipping And Receiving Supervisor Name: Delivery Method: HAND - Hand Delivered Myra Days: Prior Verbal Notification: Recipient Understood Notice: Yes Recipient Signature: Yes Med Rec Note Co-signed by Attending: Coverage Notice Comment: Reviewer: [id number] - Rad Krishnamurthy Notice Issued Date-Time: 09/08/2019 8:30 Notice Type: IM Discharge Notice Notice Delivered To: Patient Relationship to Patient: Shipping And Receiving Supervisor Name: Delivery Method: HAND - Hand Delivered Myra Days: Prior Verbal Notification: Recipient Understood Notice: Yes Recipient Signature: Yes Med Rec Note Co-signed by Attending: Coverage Notice Comment: Last DP export: 09/08/19 9:20 a Patient Name: SERENITY LEOS Page [phone] at 1027 All edits/amendments must be made on the electronic document DICTATION DATE: 09/08/19 1027 RETAIL PLANNER: MODESTA 09/08/19 1027 RPT#: [id number] DC DATE: STATUS: ADM IN [facility] [address] [place] [address] END OF REPORT
[2019-09-08 11:00] VITALS: BP 130/62
--- NOTE | 2019-09-08 13:29 | NUR ---
I have reviewed this patient and I concur with the Shift Assessment completed by the Licensed Practical Nurse today this shift.
--- NOTE | 2019-09-08 15:32 | MORECARE ---
CASE MANAGEMENT DISCHARGE SUMMARY PATIENT: SERENITY LEOS UNIT: [id number] ADM DATE: 09/01/19 AGE: 89 : 30 SEX: F ROOM/BED: D.2101 AUTHOR: NAKIA,DOC PHYSICIAN: REFERRING PHYSICIAN: ROHAN NEWMAN MD DATE OF SERVICE: 09/08/19 Discharge Plan Patient Name: SERENITY LEOS Facility: [facility]:[place] : 1930 Planned Disposition: Home with Home Health Anticipated Discharge Date: 09/08/19 Discharge Date: Expected LOS: 7 Initial Reviewer: [id number] Initial Review Date: 08/31/2019 Generated: 09/08/19 4:32 pm Comments DCP- Discharge Planning Updated by [id number]: Rad Krishnamurthy on 09/08/19 7:[address] Patient Name: SERENITY LEOS Encounter No: [id number] : 1930 Primary Insurance: MEDICARE A & B Anticipated DC Date: 09-08-2019 Planned Disposition: HOME HEALTH External Planned Provider: [facility] LATE ENTRY FROM 09-05-19, 1630 HOURS: DCP follow-up note: [facility] INFORMED CM THAT PT HAS BEEN ACCEPTED AT [facility] FOR REHAB, THEY ARE NOT ABLE TO ACCEPT UNTIL 09-08-19. ON 09-08-19 AT APPROXIMATELY 0820 HOURS, CM MET WITH PT IN ROOM TO DISCUSS GOING TO REHAB TODAY AT [facility]. PT INFORMED CM THAT SHE IS NOT GOING TO REHAB AND WILL BE GOING HOME TODAY. PT HAS TALKED TO HER CHILDREN AND DUE TO THE VIRUS THAT IS GOING AROUND, PT FEELS SAFER AT HOME THAN REHAB. PT ASKED FOR HOME HEALTH, PROVIDER LISTING REVIEWED, PT HAS NOT CHOICE IN PROVIDER. IMPORTANT MESSAGE FROM MEDICARE PROVIDED AND EXPLAINED. PT REPORTS SHE WILL CALL SOMEONE TO PICK HER UP TODAY AT DISCHARGE. CM TO ARRANGE HOME HEALTH WITH [facility] WITH PHYSICIAN AGREEMENT AND ORDERS. Rad Krishnamurthy, CASE MANAGEMENT DCP- Discharge Planning Updated by [id number]: Rad Krishnamurthy on 09/04/19 4:[address] Patient Name: SERENITY LEOS Encounter No: [id number] : 1930 Primary Insurance: MEDICARE A & B Anticipated DC Date: 09-03-2019 Planned Disposition: Group Home Facility External Planned Provider: [facility], MEDICARE REHAB BED DCP follow-up note: CM SPOKE TO PT IN ROOM WHO HAD DAUGHTER, KATIE RAINEY ON PHONE ). KATIE REPORTS PT'S SISTER CALLED MEDICARE AND REMOVED THE "MSP" AND IT SHOULD BE CLEAR TO ENTER REHAB WITHIN THE NEXT 48 HOURS. PT STATES SHE DOES NOT WANT TO GO TO THE [facility] HER FELL AND IN THE FACILITY. CM REVIEWED [facility] FACILITY LIST, PT AND DAUGHTER CHOSE [facility] OR [facility], CHOICE COMPLETED. CM NOTIFIED [facility], , OF REFERRAL. CM FAXED REFERRAL TO [facility] AND [facility] AT [phone]. CM WAITING ADMISSION DETERMINATION FOR REHAB AT [facility]. FAMILY REPORTS HAVING RESTRICTION REMOVED FROM PT'S MEDICARE CASE THAT WILL ALLOW [facility] F[facility]ILITY REHAB PLACEMENT. Rad Krishnamurthy, CASE MANAGEMENT DCP- Discharge Planning Updated by [id number]: Rad Krishnamurthy on 09/04/19 6:[address] Patient Name: SERENITY LEOS Encounter No: [id number] : 1930 Primary Insurance: MEDICARE A & B Anticipated DC Date: 09-03-2019 Planned Disposition: Group Home Facility External Planned Provider: [facility], MEDICARE REHAB BED Discharge Planning Comments: CCM RECEIVED CALL FROM BRANDON OF [facility], PT HAS OPEN "MSP" CLAIM ATTACHED TO [employer] MEDICARE AND THIS HAS TO BE CLOSED IN ORDER FOR ANY [facility] FACILITY TO GET PAYMENT FOR SERVICES. CM NOTIFIED PT AND PROVIDED MEDICARE PHONE NUMBER TO CALL AND TAKE CARE OF THIS. PT REPORTS HER SISTER WILL ASSIST HER WITH THIS TODAY. CM WAITING FOR PT TO CALL MEDICARE TO GET THE "MSP" TAKEN OFF OF HER MEDICARE TO ALLOW HER TO GO TO THE [facility] FOR REHAB SERVICES. Rotary Cutter Feeder: Rad Krishnamurthy DCP- Discharge Planning Updated by [id number]: Rad Krishnamurthy on 09/03/19 2:[address] Patient Name: SERENITY LEOS Admission Status: Elective Accout number: [id number] Admission Date: 09-01-2019 : 03-09-1931 Admission Diagnosis: Attending: ROHAN NEWMAN Current LOS: 2 Anticipated DC Date: 09-03-2019 Planned Disposition: Group Home Facility Primary Insurance: MEDICARE A & B PLANNED EXTERNAL PROVIDER: [facility], MEDICARE REHAB BED Discharge Planning Comments: CM RECEIVED ORDER FOR INPATIENT REHAB PRESCREENING, CM MET WITH PT IN ROOM TO DISCUSS DISCHARGE PLANNING AND NEEDS. PT REPORTS LIVING AT HOME INDEPENDENTLY ALONE; PT'S ADULT DAUGHTER IS "IN AND OUT" BUT DOES NOT LIVE IN THE HOME. PT HAS CANE, HOME OXYGEN FROM [facility], WALKER AND [employer]IST MACHINE. PT HAS NO OUTSIDE SERVICES ASSISTING IN THE HOME. CM DISCUSSED AVAILABILITY OF HOME HEALTH, REHAB SERVICES AND MEDICAL EQUIPMENT. PT WANTS REHAB AT [place]. CHOICE SIGNED. IMPORTANT MESSAGE FROM MEDICARE PROVIDED AND EXPLAINED. PT REPORTS DAUGHTER WILL PICK HER UP AT DISCHARGE. CM LATER ADVISED BY [employer] OF INPATIENT REHAB IN MULTIDISCIPLINARY TEAM MEETING THAT PT IS TOO HIGH FUNCTIONING FOR INPATIENT REHAB. CM MET WITH PT IN ROOM, DISCUSSED [facility] RE[facility]AB FACILITIES AND HOME HEALTH. PT AFRAID TO RETURN HOME ALONE WITH BLOOD CLOTS IN LEG. PT WANTS TO TRY TO GET INTO REHAB IN [facility] IN [place] AND DOES NOT WANT ONE IN [place]. PROVIDER LISTING REVIEWED, PT CHOICE SIGNED FOR THE [facility]. CM NOTIFIED BRANDON, OF THE [facility] OF REFERRAL FOR REHAB AND THAT PT IS READY TO DISCHARGE AND ASKED FOR QUICK REVIEW. CM FAXED REHAB REFERRAL TO [facility]IA [place] AT [phone]. CM WAITING ADMISSION DETERMINATION FROM THE [facility] FOR REHAB SERVICES. Rotary Cutter Feeder: Rad Krishnamurthy DCPIA - Discharge Planning Initial Assessment Updated by [id number]: Rad Krishnamurthy on 09/03/19 3:27 pm * Is the patient Alert and Oriented? Yes * How many steps to enter\\exit or inside your home? 4 W/RAILS * PCP DR. AMADOR * Pharmacy [facility] IN [place] * Preadmission Environment Home Alone * ADLs Independent * Equipment Cane Other Oxygen Walker * Other Equipment HOME OXYGEN ONLY - [facility] [employer] * List name and contact numbers for known caregivers / representatives who currently or will assist patient after discharge: KATIE RAINEY, DTR, [phone] * Verbal permission to speak to the caregivers and representatives has been obtained from the patient. N/A * Community resources currently utilized None * Please name any agencies selected above. NONE * Additional services required to return to the preadmission environment? No * Can the patient safely return to the preadmission environment? Yes * Has this patient been hospitalized within the prior 30 days at any hospital? No Coverage Notice Reviewer: [id number] Rudi Betsey Paz Notice Issued Date-Time: 08/31/2019 15:13 Notice Type: Medicare Outpatient Observation Notice Notice Delivered To: Patient Relationship to Patient: Self Brick And Tile Making Machine Operator Name: Serenity Leos Delivery Method: HAND - Hand Delivered Myra Days: Prior Verbal Notification: Recipient Understood Notice: Yes Recipient Signature: Yes Med Rec Note Co-signed by Attending: Coverage Notice Comment: DOZIER delivered to and signed by patient. Original given to patient and one placed on the chart. Reviewer: [id number] Rudi Krishnamurthy Notice Issued Date-Time: 09/03/2019 9:35 Notice Type: Patient Choice Letter Notice Delivered To: Patient Relationship to Patient: Brick And Tile Making Machine Operator Name: Delivery Method: HAND - Hand Delivered Myra Days: Prior Verbal Notification: Recipient Understood Notice: Yes Recipient Signature: Yes Med Rec Note Co-signed by Attending: Coverage Notice Comment: [facility] Reviewer: [id number] Rudi Krishnamurthy Notice Issued Date-Time: 09/03/2019 9:35 Notice Type: IM Discharge Notice Notice Delivered To: Patient Relationship to Patient: Brick And Tile Making Machine Operator Name: Delivery Method: HAND - Hand Delivered Myra Days: Prior Verbal Notification: Recipient Understood Notice: Yes Recipient Signature: Yes Med Rec Note Co-signed by Attending: Coverage Notice Comment: Reviewer: [id number] Krishnamurthy Notice Issued Date-Time: 09/03/2019 13:20 Notice Type: Patient Choice Letter Notice Delivered To: Patient Relationship to Patient: Brick And Tile Making Machine Operator Name: Delivery Method: HAND - Hand Delivered Myra Days: Prior Verbal Notification: Recipient Understood Notice: Yes Recipient Signature: Yes Med Rec Note Co-signed by Attending: Coverage Notice Comment: JEFFREY OTERO Reviewer: [id number] Rudi Krishnamurthy Notice Issued Date-Time: 09/04/2019 15:55 Notice Type: Patient Choice Letter Notice Delivered To: Patient Relationship to Patient: Brick And Tile Making Machine Operator Name: Delivery Method: HAND - Hand Delivered Myra Days: Prior Verbal Notification: Recipient Understood Notice: Yes Recipient Signature: Yes Med Rec Note Co-signed by Attending: Coverage Notice Comment: MISA PANCHAL Reviewer: [id number] Rudi Krishnamurthy Notice Issued Date-Time: 09/08/2019 8:30 Notice Type: IM Discharge Notice Notice Delivered To: Patient Relationship to Patient: Brick And Tile Making Machine Operator Name: Delivery Method: HAND - Hand Delivered Myra Days: Prior Verbal Notification: Recipient Understood Notice: Yes Recipient Signature: Yes Med Rec Note Co-signed by Attending: Coverage Notice Comment: Last DP export: 09/08/19 9:27 a Patient Name: SERENITY LEOS Page [id number] at 1532 All edits/amendments must be made on the electronic document DICTATION DATE: 09/08/19 1532 BLENDING MACHINE FEEDER: MODESTA 09/08/19 1532 RPT#: [id number] DC DATE: STATUS: ADM IN [facility] [address] [place] [address] END OF REPORT
[2019-09-08] MEDS ORDERED: COUMADIN5 MG PO (16:03)
--- NOTE | 2019-09-08 16:23 | MORECARE ---
CASE MANAGEMENT DISCHARGE SUMMARY PATIENT: SERENITY LEOS UNIT: [id number] ADM DATE: 09/01/19 AGE: 89 : 30 SEX: F ROOM/BED: D.2108 AUTHOR: NAKIA,DOC PHYSICIAN: REFERRING PHYSICIAN: ROHAN NEWMAN MD DATE OF SERVICE: 09/08/19 Discharge Plan Patient Name: SERENITY LEOS Facility: [facility]:[place] : 1930 Planned Disposition: Home with Home Health Anticipated Discharge Date: 09/08/19 Discharge Date: Expected LOS: 7 Initial Reviewer: [id number] Initial Review Date: 08/31/2019 Generated: 09/08/19 5:23 pm Comments DCP- Discharge Planning Updated by [id number]: Rad Krishnamurthy on 09/08/19 3:[address] Patient Name: SERENITY LEOS Encounter No: [id number] : 1930 Primary Insurance: MEDICARE A & B Anticipated DC Date: 09-08-2019 Planned Disposition: HOME HEALTH External Planned Provider: [facility] LATE ENTRY FROM 09-05-19, 1630 HOURS: DCP follow-up note: [facility] INFORMED CM THAT PT HAS BEEN ACCEPTED AT [facility] FOR REHAB, THEY ARE NOT ABLE TO ACCEPT UNTIL 09-08-19. ON 09-08-19 AT APPROXIMATELY 0820 HOURS, CM MET WITH PT IN ROOM TO DISCUSS GOING TO REHAB TODAY AT [facility]. PT INFORMED CM THAT SHE IS NOT GOING TO REHAB AND WILL BE GOING HOME TODAY. PT HAS TALKED TO HER CHILDREN AND DUE TO THE VIRUS THAT IS GOING AROUND, PT FEELS SAFER AT HOME THAN REHAB. PT ASKED FOR HOME HEALTH, PROVIDER LISTING REVIEWED, PT HAS NOT CHOICE IN PROVIDER. IMPORTANT MESSAGE FROM MEDICARE PROVIDED AND EXPLAINED. PT REPORTS SHE WILL CALL SOMEONE TO PICK HER UP TODAY AT DISCHARGE. CM TO ARRANGE HOME HEALTH WITH [facility] WITH PHYSICIAN AGREEMENT AND ORDERS. Rad Krishnamurthy, CASE MANAGEMENT Appended by Rad Krishnamurthy on 09/08/2019 16:16 CDT: CM RECEIVED HOME HEALTH ORDER, CALLED [facility], , SPOKE TO KATIE AND PROVIDED REFERRAL INFORMATION, FAXED REFERRAL TO [facility] AT [phone]. PT ON SCHEDULE FOR ADMIT TOMORROW, 09-09-19. [employer] DRIVER NURSE AND DOCTOR NOTIFIED. SHYANN ELIZABETH MANAGEMENT DCP- Discharge Planning Updated by [email or web address]: Rad Krishnamurthy on 09/04/19 4:[address] Patient Name: SERENITY LEOS Encounter No: [id number] : 1930 Primary Insurance: MEDICARE A & B Anticipated DC Date: 09-03-2019 Planned Disposition: Longterm Facility External Planned Provider: [facility] RE[facility] OR [facility], MEDICARE REHAB BED DCP follow-up note: CM SPOKE TO PT IN ROOM WHO HAD DAUGHTER, KATIE RAINEY ON PHONE ). KATIE REPORTS PT'S SISTER CALLED MEDICARE AND REMOVED THE "MSP" AND IT SHOULD BE CLEAR TO ENTER REHAB WITHIN THE NEXT 48 HOURS. PT STATES SHE DOES NOT WANT TO GO TO THE [facility] HER FELL AND IN THE FACILITY. CM REVIEWED [facility] FACILITY LIST, PT AND DAUGHTER CHOSE [facility] OR [facility], CHOICE COMPLETED. CM NOTIFIED [facility], , OF REFERRAL. CM FAXED REFERRAL TO [facility] FOR [facility] AND [facility] AT [phone]. CM WAITING ADMISSION DETERMINATION FOR REHAB AT [facility]. FAMILY REPORTS HAVING RESTRICTION REMOVED FROM PT'S MEDICARE CASE THAT WILL ALLOW [facility] F[facility]ILITY REHAB PLACEMENT. SHYANN Elizabeth DCP- Discharge Planning Updated by [id number]: Rad Krishnamurthy on 09/04/19 6:[address] Patient Name: SERENITY LEOS Encounter No: [id number] : 1930 Primary Insurance: MEDICARE A & B Anticipated DC Date: 09-03-2019 Planned Disposition: Longterm Facility External Planned Provider: [facility], MEDICARE REHAB BED Discharge Planning Comments: CCM RECEIVED CALL FROM BRANDON OF THE [facility], PT HAS OPEN "MSP" CLAIM ATTACHED TO [employer] MEDICARE AND THIS HAS TO BE CLOSED IN ORDER FOR ANY [facility] FACILITY TO GET PAYMENT FOR SERVICES. CM NOTIFIED PT AND PROVIDED MEDICARE PHONE NUMBER TO CALL AND TAKE CARE OF THIS. PT REPORTS HER SISTER WILL ASSIST HER WITH THIS TODAY. CM WAITING FOR PT TO CALL MEDICARE TO GET THE "MSP" TAKEN OFF OF HER MEDICARE TO ALLOW HER TO GO TO THE [facility] FOR REHAB SERVICES. Packer Fuser: Rad Krishnamurthy DCP- Discharge Planning Updated by [id number]: Rad Krishnamurthy on 09/03/19 2:[address] Patient Name: SERENITY LEOS Admission Status: Elective Accout number: [id number] Admission Date: 09-01-2019 : 1930 Admission Diagnosis: Attending: ROHAN NEWMAN Current LOS: 2 Anticipated DC Date: 09-03-2019 Planned Disposition: Longterm Facility Primary Insurance: MEDICARE A & B PLANNED EXTERNAL PROVIDER: [facility], MEDICARE REHAB BED Discharge Planning Comments: CM RECEIVED ORDER FOR INPATIENT REHAB PRESCREENING, CM MET WITH PT IN ROOM TO DISCUSS DISCHARGE PLANNING AND NEEDS. PT REPORTS LIVING AT HOME INDEPENDENTLY ALONE; PT'S ADULT DAUGHTER IS "IN AND OUT" BUT DOES NOT LIVE IN THE HOME. PT HAS CANE, HOME OXYGEN FROM [facility], WALKER AND MUCOMIST MACHINE. PT HAS NO OUTSIDE SERVICES ASSISTING IN THE HOME. CM DISCUSSED AVAILABILITY OF HOME HEALTH, REHAB SERVICES AND MEDICAL EQUIPMENT. PT WANTS REHAB AT [place]. CHOICE SIGNED. IMPORTANT MESSAGE FROM MEDICARE PROVIDED AND EXPLAINED. PT REPORTS DAUGHTER WILL PICK HER UP AT DISCHARGE. CM LATER ADVISED BY [employer] OF INPATIENT REHAB IN MULTIDISCIPLINARY TEAM MEETING THAT PT IS TOO HIGH FUNCTIONING FOR INPATIENT REHAB. CM MET WITH PT IN ROOM, DISCUSSED [facility] RE[facility]AB FACILITIES AND HOME HEALTH. PT AFRAID TO RETURN HOME ALONE WITH BLOOD CLOTS IN LEG. PT WANTS TO TRY TO GET INTO REHAB IN [facility] [facility] [place] AND DOES NOT WANT ONE IN [place]. PROVIDER LISTING REVIEWED, PT CHOICE SIGNED FOR THE [facility]. CM NOTIFIED BRANDON, OF THE [facility] OF REFERRAL FOR REHAB AND THAT PT IS READY TO DISCHARGE AND ASKED FOR QUICK REVIEW. CM FAXED REHAB REFERRAL TO THE [facility]IA [facility] AT [phone]. CM WAITING ADMISSION DETERMINATION FROM THE [facility] FOR REHAB SERVICES. Packer Fuser: Rad Krishnamurthy DCPIA - Discharge Planning Initial Assessment Updated by [id number]: Rad Krishnamurthy on 09/03/19 3:27 pm * Is the patient Alert and Oriented? Yes * How many steps to enter\\exit or inside your home? 4 W/RAILS * PCP DR. AMDAOR * Pharmacy [facility] IN [place] * Preadmission Environment Home Alone * ADLs Independent * Equipment Cane Other Oxygen Walker * Other Equipment HOME OXYGEN ONLY - [facility] [employer] MACHINE * List name and contact numbers for known caregivers / representatives who currently or will assist patient after discharge: KATIE RAINEY, DTR, [phone] * Verbal permission to speak to the caregivers and representatives has been obtained from the patient. N/A * Community resources currently utilized None * Please name any agencies selected above. NONE * Additional services required to return to the preadmission environment? No * Can the patient safely return to the preadmission environment? Yes * Has this patient been hospitalized within the prior 30 days at any hospital? No Coverage Notice Reviewer: [id number] Rudi Paz Notice Issued Date-Time: 08/31/2019 15:13 Notice Type: Medicare Outpatient Observation Notice Notice Delivered To: Patient Relationship to Patient: Self Technical Sales Manager Name: Serenity Leos Delivery Method: HAND - Hand Delivered Myra Days: Prior Verbal Notification: Recipient Understood Notice: Yes Recipient Signature: Yes Med Rec Note Co-signed by Attending: Coverage Notice Comment: DOZIER delivered to and signed by patient. Original given to patient and one placed on the chart. Reviewer: [id number] Rudi Krishnamurthy Notice Issued Date-Time: 09/03/2019 9:35 Notice Type: Patient Choice Letter Notice Delivered To: Patient Relationship to Patient: Technical Sales Manager Name: Delivery Method: HAND - Hand Delivered Myra Days: Prior Verbal Notification: Recipient Understood Notice: Yes Recipient Signature: Yes Med Rec Note Co-signed by Attending: Coverage Notice Comment: [facility] Reviewer: [id number] Rudi Krishnamurthy Notice Issued Date-Time: 09/03/2019 13:20 Notice Type: Patient Choice Letter Notice Delivered To: Patient Relationship to Patient: Technical Sales Manager Name: Delivery Method: HAND - Hand Delivered Myra Days: Prior Verbal Notification: Recipient Understood Notice: Yes Recipient Signature: Yes Med Rec Note Co-signed by Attending: Coverage Notice Comment: JEFFREY OTERO Reviewer: [id number] Rudi Krishnamurthy Notice Issued Date-Time: 09/04/2019 15:55 Notice Type: Patient Choice Letter Notice Delivered To: Patient Relationship to Patient: Technical Sales Manager Name: Delivery Method: HAND - Hand Delivered Myra Days: Prior Verbal Notification: Recipient Understood Notice: Yes Recipient Signature: Yes Med Rec Note Co-signed by Attending: Coverage Notice Comment: MISA PANCHAL Reviewer: [id number] Rudi Krishnamurthy Notice Issued Date-Time: 09/03/2019 9:35 Notice Type: IM Discharge Notice Notice Delivered To: Patient Relationship to Patient: Technical Sales Manager Name: Delivery Method: HAND - Hand Delivered Myra Days: Prior Verbal Notification: Recipient Understood Notice: Yes Recipient Signature: Yes Med Rec Note Co-signed by Attending: Coverage Notice Comment: Reviewer: [id number] Krishnamurthy Notice Issued Date-Time: 09/08/2019 8:30 Notice Type: IM Discharge Notice Notice Delivered To: Patient Relationship to Patient: Technical Sales Manager Name: Delivery Method: HAND - Hand Delivered Myra Days: Prior Verbal Notification: Recipient Understood Notice: Yes Recipient Signature: Yes Med Rec Note Co-signed by Attending: Coverage Notice Comment: Last DP export: 09/08/19 2:32 p Patient Name: SERENITY LEOS Page [id number] at 1623 All edits/amendments must be made on the electronic document DICTATION DATE: 09/08/191622 COLLECTIONS REP: MODESTA 09/08/19 162 RPT#: [id number] DC DATE: STATUS: ADM IN [facility] [address] [place] [address] END OF REPORT
--- NOTE | 2019-09-08 17:37 | NUR ---
PT DC'D WITH DISCHARGE INFORMATION AND 22G RFA IV DC'D. PT WHEELED OUT BY STAFF TO PRIVATE VEHICLE. PT A/O X4. VSS.
--- NOTE | 2019-09-08 17:41 | NUR ---
PT GIVEN PRESCRIPTION FOR HYDROCODONE-5 UPON D/C.
--- NOTE | 2019-09-09 08:31 | MORECARE ---
CASE MANAGEMENT DISCHARGE SUMMARY PATIENT: SERENITY LEOS UNIT: [id number] ADM DATE: 09/01/19 AGE: 89 : 30 SEX: F ROOM/BED: D.2107 AUTHOR: NAKIA,DOC PHYSICIAN: REFERRING PHYSICIAN: ROHAN NEWMAN MD DATE OF SERVICE: 09/09/19 Discharge Plan Patient Name: SERENITY LEOS Facility: [facility]:[place] : 1930 Planned Disposition: Home with Home Health Anticipated Discharge Date: 09/08/19 Discharge Date: 09/08/2019 Expected LOS: 7 Initial Reviewer: [id number] Initial Review Date: 08/31/2019 Generated: 09/09/19 9:30 am Comments DCP- Discharge Planning Updated by [id number]: Rad Krishnamurthy on 09/08/19 3:[address] Patient Name: SERENITY LEOS Encounter No: [id number] : 1930 Primary Insurance: MEDICARE A & B Anticipated DC Date: 09-08-2019 Planned Disposition: HOME HEALTH External Planned Provider: [facility] LATE ENTRY FROM 09-05-19, 1630 HOURS: DCP follow-up note: [facility] INFORMED CM THAT PT HAS BEEN ACCEPTED AT [facility] FOR REHAB, THEY ARE NOT ABLE TO ACCEPT UNTIL 09-08-19. ON 09-08-19 AT APPROXIMATELY 0820 HOURS, CM MET WITH PT IN ROOM TO DISCUSS GOING TO REHAB TODAY AT [facility]. PT INFORMED CM THAT SHE IS NOT GOING TO REHAB AND WILL BE GOING HOME TODAY. PT HAS TALKED TO HER CHILDREN AND DUE TO THE VIRUS THAT IS GOING AROUND, PT FEELS SAFER AT HOME THAN REHAB. PT ASKED FOR HOME HEALTH, PROVIDER LISTING REVIEWED, PT HAS NOT CHOICE IN PROVIDER. IMPORTANT MESSAGE FROM MEDICARE PROVIDED AND EXPLAINED. PT REPORTS SHE WILL CALL SOMEONE TO PICK HER UP TODAY AT DISCHARGE. CM TO ARRANGE HOME HEALTH WITH [facility] WITH PHYSICIAN AGREEMENT AND ORDERS. Rad Krishnamurthy, CASE MANAGEMENT Appended by Rad Krishnamurthy on 09/08/2019 16:16 CDT: CM RECEIVED HOME HEALTH ORDER, CALLED [facility], , SPOKE TO KATIE AND PROVIDED REFERRAL INFORMATION, FAXED REFERRAL TO [facility] AT [phone]. PT ON SCHEDULE FOR ADMIT TOMORROW, 09-09-19. MANAGER STAR NURSE AND DOCTOR NOTIFIED. SHYANN ELIZABETH MANAGEMENT DCP- Discharge Planning Updated by [id number]: Rad Krishnamurthy on 09/04/19 4:[address] Patient Name: SERENITY LEOS Encounter No: [id number] : 1930 Primary Insurance: MEDICARE A & B Anticipated DC Date: 09-03-2019 Planned Disposition: Alf Facility External Planned Provider: [facility] RE[facility] OR [facility], MEDICARE REHAB BED DCP follow-up note: CM SPOKE TO PT IN ROOM WHO HAD DAUGHTER, KATIE RAINEY ON PHONE ). KATIE REPORTS PT'S SISTER CALLED MEDICARE AND REMOVED THE "MSP" AND IT SHOULD BE CLEAR TO ENTER REHAB WITHIN THE NEXT 48 HOURS. PT STATES SHE DOES NOT WANT TO GO TO THE [facility] HER FELL AND IN THE FACILITY. CM REVIEWED PRISON FACILITY LIST, PT AND DAUGHTER CHOSE [facility] OR [facility], CHOICE COMPLETED. CM NOTIFIED [facility], , OF REFERRAL. CM FAXED REFERRAL TO [facility] FOR [facility] AND [facility] AT [phone]. CM WAITING ADMISSION DETERMINATION FOR REHAB AT [facility]. FAMILY REPORTS HAVING RESTRICTION REMOVED FROM PT'S MEDICARE CASE THAT WILL ALLOW PRISON FACILITY REHAB PLACEMENT. Rad Krishnamurthy, CASE MANAGEMENT DCP- Discharge Planning Updated by [id number]: Rad Krishnamurthy on 09/04/19 6:[address] Patient Name: SERENITY LEOS Encounter No: [id number] : 1930 Primary Insurance: MEDICARE A & B Anticipated DC Date: 09-03-2019 Planned Disposition: Alf Facility External Planned Provider: [facility] AND REH, MEDICARE REHAB BED Discharge Planning Comments: CCM RECEIVED CALL FROM BRANDON OF THE [facility], PT HAS OPEN "MSP" CLAIM ATTACHED TO [employer] MEDICARE AND THIS HAS TO BE CLOSED IN ORDER FOR ANY PRISON FACILITY TO GET PAYMENT FOR SERVICES. CM NOTIFIED PT AND PROVIDED MEDICARE PHONE NUMBER TO CALL AND TAKE CARE OF THIS. PT REPORTS HER SISTER WILL ASSIST HER WITH THIS TODAY. CM WAITING FOR PT TO CALL MEDICARE TO GET THE "MSP" TAKEN OFF OF HER MEDICARE TO ALLOW HER TO GO TO THE [facility] FOR REHAB SERVICES. Retail Pharmacy Technician: Rad Krishnamurthy DCP- Discharge Planning Updated by [id number]: Rad Krishnamurthy on 09/03/19 2:[address] Patient Name: SERENITY LEOS Admission Status: Elective Accout number: [id number] Admission Date: 09-01-2019 : 1930 Admission Diagnosis: Attending: ROHAN NEWMAN Current LOS: 2 Anticipated DC Date: 09-03-2019 Planned Disposition: Alf Facility Primary Insurance: MEDICARE A & B PLANNED EXTERNAL PROVIDER: THE [facility] RE[facility], MEDICARE REHAB BED Discharge Planning Comments: CM RECEIVED ORDER FOR INPATIENT REHAB PRESCREENING, CM MET WITH PT IN ROOM TO DISCUSS DISCHARGE PLANNING AND NEEDS. PT REPORTS LIVING AT HOME INDEPENDENTLY ALONE; PT'S ADULT DAUGHTER IS "IN AND OUT" BUT DOES NOT LIVE IN THE HOME. PT HAS CANE, HOME OXYGEN FROM [facility], WALKER AND MUCOMIST MACHINE. PT HAS NO OUTSIDE SERVICES ASSISTING IN THE HOME. CM DISCUSSED AVAILABILITY OF HOME HEALTH, REHAB SERVICES AND MEDICAL EQUIPMENT. PT WANTS REHAB AT [facility]. CHOICE SIGNED. IMPORTANT MESSAGE FROM MEDICARE PROVIDED AND EXPLAINED. PT REPORTS DAUGHTER WILL PICK HER UP AT DISCHARGE. CM LATER ADVISED BY [employer] OF INPATIENT REHAB IN MULTIDISCIPLINARY TEAM MEETING THAT PT IS TOO HIGH FUNCTIONING FOR INPATIENT REHAB. CM MET WITH PT IN ROOM, DISCUSSED PRISON REHAB FACILITIES AND HOME HEALTH. PT AFRAID TO RETURN HOME ALONE WITH BLOOD CLOTS IN LEG. PT WANTS TO TRY TO GET INTO REHAB IN [facility] IN [place] AND DOES NOT WANT ONE IN [place]. PROVIDER LISTING REVIEWED, PT CHOICE SIGNED FOR THE [facility]. CM NOTIFIED BRANDON, OF THE [facility] OF REFERRAL FOR REHAB AND THAT PT IS READY TO DISCHARGE AND ASKED FOR QUICK REVIEW. CM FAXED REHAB REFERRAL TO THE [facility] VIA [facility] AT [phone]. CM WAITING ADMISSION DETERMINATION FROM THE [facility] FOR REHAB SERVICES. Retail Pharmacy Technician: Rad Krishnamurthy DCPIA - Discharge Planning Initial Assessment Updated by [email or web address]: Rad Krishnamurthy on 09/03/19 3:27 pm * Is the patient Alert and Oriented? Yes * How many steps to enter\\exit or inside your home? 4 W/RAILS * PCP DR. AMADOR * Pharmacy [facility] IN [place] * Preadmission Environment Home Alone * ADLs Independent * Equipment Cane Other Oxygen Walker * Other Equipment HOME OXYGEN ONLY - [facility] [employer] * List name and contact numbers for known caregivers / representatives who currently or will assist patient after discharge: KATIE BRIGID, DTR, [phone] * Verbal permission to speak to the caregivers and representatives has been obtained from the patient. N/A * Community resources currently utilized None * Please name any agencies selected above. NONE * Additional services required to return to the preadmission environment? No * Can the patient safely return to the preadmission environment? Yes * Has this patient been hospitalized within the prior 30 days at any hospital? No Coverage Notice Reviewer: [id number] Rudi Paz Notice Issued Date-Time: 08/31/2019 15:13 Notice Type: Medicare Outpatient Observation Notice Notice Delivered To: Patient Relationship to Patient: Self Shoe Folder Name: Serenity Leos Delivery Method: HAND - Hand Delivered Myra Days: Prior Verbal Notification: Recipient Understood Notice: Yes Recipient Signature: Yes Med Rec Note Co-signed by Attending: Coverage Notice Comment: DOZIER delivered to and signed by patient. Original given to patient and one placed on the chart. Reviewer: [id number] Rudi Krishnamurthy Notice Issued Date-Time: 09/03/2019 9:35 Notice Type: Patient Choice Letter Notice Delivered To: Patient Relationship to Patient: Shoe Folder Name: Delivery Method: HAND - Hand Delivered Myra Days: Prior Verbal Notification: Recipient Understood Notice: Yes Recipient Signature: Yes Med Rec Note Co-signed by Attending: Coverage Notice Comment: [facility] Reviewer: [id number] Rudi Krishnamurthy Notice Issued Date-Time: 09/03/2019 13:20 Notice Type: Patient Choice Letter Notice Delivered To: Patient Relationship to Patient: Shoe Folder Name: Delivery Method: HAND - Hand Delivered Myra Days: Prior Verbal Notification: Recipient Understood Notice: Yes Recipient Signature: Yes Med Rec Note Co-signed by Attending: Coverage Notice Comment: JEFFREY OTERO Reviewer: [id number] Rudi Krishnamurthy Notice Issued Date-Time: 09/04/2019 15:55 Notice Type: Patient Choice Letter Notice Delivered To: Patient Relationship to Patient: Shoe Folder Name: Delivery Method: HAND - Hand Delivered Myra Days: Prior Verbal Notification: Recipient Understood Notice: Yes Recipient Signature: Yes Med Rec Note Co-signed by Attending: Coverage Notice Comment: MISA [email or web address] Reviewer: [id number] Rudi Krishnamurthy Notice Issued Date-Time: 09/03/2019 9:35 Notice Type: IM Discharge Notice Notice Delivered To: Patient Relationship to Patient: Shoe Folder Name: Delivery Method: HAND - Hand Delivered Myra Days: Prior Verbal Notification: Recipient Understood Notice: Yes Recipient Signature: Yes Med Rec Note Co-signed by Attending: Coverage Notice Comment: Reviewer: [id number] Krishnamurthy Notice Issued Date-Time: 09/08/2019 8:30 Notice Type: IM Discharge Notice Notice Delivered To: Patient Relationship to Patient: Shoe Folder Name: Delivery Method: HAND - Hand Delivered Myra Days: Prior Verbal Notification: Recipient Understood Notice: Yes Recipient Signature: Yes Med Rec Note Co-signed by Attending: Coverage Notice Comment: Last DP export: 09/08/19 3:23 p Patient Name: SERENITY LEOS Page [id number] at 0831 All edits/amendments must be made on the electronic document DICTATION DATE: 09/09/19829 TASSEL SNIPPER: MODESTA 09/09/19829 RPT#: [id number] DC DATE:09/08/19 STATUS: DIS IN [facility] [address] [place] [address] END OF REPORT
== END 2019-09-08 17:42 | disposition home health service (06) | DRG 300 ==
LOC: D.ER 07:21 → D.M2 08:44 → OBSVTIME 09:00 → D.M2 09-01 15:05
PROVIDERS: Family Medicine; ADMIT Internal Medicine Nephrology; ATTEND Internal Medicine Nephrology
DX: I82.401 Acute embolism and thrombosis of unspecified deep veins of right lower extremity (principal); N17.9 Acute kidney failure, unspecified; E87.1 Hypo-osmolality and hyponatremia; D64.9 Anemia, unspecified; N20.0 Calculus of kidney; E83.42 Hypomagnesemia; Z86.73 Personal history of transient ischemic attack (TIA), and cerebral infarction without residual deficits

== ENCOUNTER → 2019-12-18 14:58 | Outpatient (CLI) | payer MEDICARE, BC ==
[2019-09-01 13:28] VITALS: BMI 16.8
[~2019-12-18 14:58] MED LIST changes: +ATARAX 25 MG TA25 MG PO; +COUMADIN5 MG PO; +ELAVIL10 MG PO; +FUROSEMIDE20 MG PO; +HYDROCODON-ACE1 EAC7; +OMEPRAZOLE40 MG PO
== END | disposition home or self-care (01) ==
LOC: D.CT 14:58
PROVIDERS: ATTEND Orthopaedic Surgery
DX: M79.671 Pain in right foot (principal)

== ENCOUNTER → 2020-01-01 13:54 | Outpatient (CLI) | payer MEDICARE, BC ==
[2019-09-01 13:28] VITALS: BMI 16.8
[~2020-01-01 13:54] MED LIST changes: +FERROUS SULFAT325 MG PO
== END | disposition home or self-care (01) ==
LOC: D.MRI 13:54
PROVIDERS: ATTEND Orthopaedic Surgery
DX: M86.671 Other chronic osteomyelitis, right ankle and foot (principal)

== ENCOUNTER 2020-01-02 12:49 | Inpatient (IN) | payer MEDICARE, BC ==
[~2020-01-02] VITALS: Ht 162.6 cm; Wt 44.5 kg
[2020-01-02] VITALS (7 sets, daily range): BP systolic 111–158; BP diastolic 41–74; BMI 16.8
--- NOTE | ~2020-01-02 | HEMODYNAMI ---
PATIENT:JACINTO DHALIWAL MEDICAL RECORD: [id number] : [birth year] LOCATION:D.MS [id number] ADMISSION DATE: 01/02/20 Generatedon:01/03/202014:12 Patient name: JACINTO DHALIWAL Patient #: [id number] SSN: : 1930 Date of study: 01/03/2020 Page: Of Hemodynamic Procedure Report Patient Data Patient Demographics Procedure consent was obtained First Name: JACINTO Gender: Female Last Name: MADHURI : 1930 Patient #: [id number] Age: 89 year(s) Race: Unknown Additional ID: [id number] Contact details Address: [address] [place] [address] OFF State: [place] City: [place] Zip code: [address] Admission Admission Data Admission Date: 01/02/2020 Admission Time: 17:51 Room #: D.2237 Procedure Procedure Types Cath Procedure Peripheral Cath Diagnostic Procedure Miscellaneous Aspiration/Injection (Joint) Procedure Description Procedure Date Procedure Date: 01/03/2020 Procedure Start Time: 13:47 Procedure Staff Name Function Primo Carlisle MD Performing Physician Gregory Spears RT Monitor Hemodynamics Rest Pre Cath Intra NCS Post Cath Procedure Log Time Note 13:30:18 Gregory Spears RT (R) (CV) sent for patient. Start room use. 13:30:20 Time tracking: Call back (After hours or weekends) 13:30:44 Patient received from Med/Surg to IR Alert and oriented. Tansferred to table in Supine position. 13:30:47 Signed procedure consent form obtained from patient. 13:30:51 Correct patient and procedure confirmed by team. 13:30:59 SAFE-T PLUS MYELOGRAM TRAY opened to sterile field. 13:31:02 Full Disclosure recording started 13:31:03 - 13:31:09 Pre-procedure instructions explained to patient. 13:31:09 Pre-op teaching completed and patient verbalized understanding. 13:31:16 ACC The patient was administered the following blood thiners within the last 24 hours: ACCLovenox 13:31:22 - 13:32:21 Rt.ankle prepped with betadine and draped in sterile fashion 13:46:47 Physician arrived 13:46:48 --------ALL STOP TIME OUT------ 13:46:54 Final Timeout: patient, procedure, and site verified with staff and physician. All members of the team are in agreement. 13:47:13 RT ANKLE SITE VERIFIED WITH TEAM 13:47:22 Sedation plan: Local Anesthetic Medication:Lidocaine 13:47:37 Procedure started. 13:47:42 Local anesthetic to Right ANKLE with Lidocaine 1% by Primo Carlisle MD.INITIAL ACCESS ONLY 14:10:03 Procedure ended.(Physican Out) 14:11:05 BANDAIDE APPLIED TO SITE AND FLUID COLLECTED AND SENT TO LAB 14:11:17 PT TRANSPORTED TO FLOOR BY BED Device Usage Item Name Manufacture Quantity Catalog Hospital Part Current Minimal Lot# / Number Charge Number Stock Stock Serial# Code SAFE-T [employer] 1 [id number] PLUS MYELOGRAM TRAY Signature Audit [place] Stage Time Signature Unsigned Intra-Procedure 01/03/2020 Gregory 2:12:27 PM [facility] RT (R) () [facility] [address] [place] [address]
[~2020-01-02 12:49] MED LIST changes: -FERROUS SULFAT325 MG PO
[2020-01-02 13:23] LABS: HEMATOCRIT 32.8 % (36.0-48.0); HEMOGLOBIN 10.2 g/dL (12-16); LYMPHOCYTES 8.1 % (15-50); MCH 29.8 pg (26.0-34.0); MCHC 31.1 g/dL (31.0-37.0); MCV 95.9 fL (80.0-100.0); MEAN PLATELET VOLUME 9.3 fL (7.4-10.4); NEUTROPHILS 77.8 % (40-80); PLATELET COUNT 293 10x3/uL (130-400); RBC 3.42 10x6/uL (4.00-5.40); WBC 10.3 10x3/uL (4.8-10.8)
[2020-01-02 13:33] LABS: ANION GAP 14.8 mmol/L (8-16); CALCIUM 8.2 mg/dL (8.5-10.1); CARBON DIOXIDE 20.8 mmol/L (21.0-32.0); CREATININE - SERUM 1.7 mg/dL (0.6-1.3); POTASSIUM - SERUM 4.6 mmol/L (3.5-5.1)
[2020-01-02 13:39] LABS: ALBUMIN 2.9 g/dL (3.4-5.0); BILIRUBIN - TOTAL 0.22 mg/dL (0.2-1.3); C-REACTIVE PROTEIN 3.2 mg/dL (0.0-0.9); PROTEIN - SERUM 5.9 g/dL (6.4-8.2)
[2020-01-02 15:34] LABS: ERYTHROCYTE SEDIMENTATION RATE 17 mm/hr (0-42)
--- NOTE | 2020-01-02 20:00 | NUR ---
PATIENT RESTING IN BED WATCHING TV. NO S/S OF ACUTE DISTRESS. PATIENT C/O PAIN IN HER RIGHT ANKLE AND THAT THE MORPHINE IS NOT WORKING. WILL CONTACT THE ON-CALL AUTOMOTIVE ALIGNMENT SPECIALIST. PATIENT HAS RIGHT FOREARM, SALINE LOC. IV IS PATENT WITHOUT REDNESS, SWELLING, OR TENDERNESS. PATIENT HAS TELEMETRY. PATIENT IS UP WITH ASSIST AND A WALKER TO THE BATHROOM. WILL TRY TO FIND BEDSIDE COMMODE. CALL LIGHT WITHIN REACH. BED ALARM ON. WILL CONTINUE TO MONITOR.
[2020-01-03 07:53] LABS: HEMATOCRIT 30.7 % (36.0-48.0); HEMOGLOBIN 9.8 g/dL (12-16); LYMPHOCYTES 12.1 % (15-50); MCH 30.6 pg (26.0-34.0); MCHC 31.9 g/dL (31.0-37.0); MCV 95.9 fL (80.0-100.0); MEAN PLATELET VOLUME 9.5 fL (7.4-10.4); NEUTROPHILS 70.8 % (40-80); PLATELET COUNT 285 10x3/uL (130-400); RDW 15.5 % (11.5-14.5)
[2020-01-03 07:54] LABS: WBC 6.9 10x3/uL (4.8-10.8)
[2020-01-03 07:57] LABS: ALBUMIN 2.6 g/dL (3.4-5.0); ANION GAP 13.8 mmol/L (8-16); BILIRUBIN - TOTAL 0.28 mg/dL (0.2-1.3); CARBON DIOXIDE 20.3 mmol/L (21.0-32.0); CREATININE - SERUM 1.4 mg/dL (0.6-1.3); POTASSIUM - SERUM 4.1 mmol/L (3.5-5.1); PROTEIN - SERUM 5.6 g/dL (6.4-8.2)
[2020-01-03 08:51] VITALS: BP 108/65
[2020-01-03] MEDS ORDERED: FERROUS SULFAT325 MG PO (08:51)
[2020-01-03 10:47] LABS: INR 1.03 (0.85-1.17); PROTIME 13.5 SECONDS (11.6-15.0)
[2020-01-03 13:26] VITALS: Ht 162.6 cm; Wt 44.5 kg
[2020-01-03 18:21] VITALS: BP 125/59
[2020-01-03 20:00] VITALS: BP 132/63
--- NOTE | 2020-01-03 20:00 | NUR ---
PATIENT RESTING IN BED WATCHING TV. NO S/S OF ACUTE DISTRESS. NO C/O AT THIS TIME. PATIENT HAS A RIGHT FOREARM, SALINE LOC. IV IS PATENT WITHOUT REDNESS, SWELLING, OR TENDERNESS. PATIENT RIGHT ANKLE IS SWOLLEN AND PAINFUL TO THE TOUCH. PATIENT HAS TELEMETRY. PATIENT IS UP WITH ASSISTANCE TO THE BEDSIDE COMMODE. CALL LIGHT WITHIN REACH. BED ALARM ON. WILL CONTINUE TO MONITOR.
--- NOTE | 2020-01-04 03:00 | NUR ---
I have reviewed this patient and I concur with the Shift Assessment completed by the Licensed Practical Nurse today this shift.
[2020-01-04 04:00] VITALS: BP 128/61
--- NOTE | 2020-01-04 07:34 | NUR ---
PT ON CL, ASSISTED TO BEDSIDE COMMODE, STATES SHE FEELS ALOT BETTER TODAY SINCE ANKLE ASPIRATION. ASSISTED PT WITH PERSONAL CARE, NO S/SX OF DISTRESS. LUNGS CTA, PT HAS IV IN RT FA, SL, PATENT, CONTINUE WITH PLAN OF CARE
[2020-01-04 08:05] LABS: C-REACTIVE PROTEIN 8.9 mg/dL (0.0-0.9); VANCOMYCIN - RANDOM 15.4 ug/mL (10.0-20.0)
[2020-01-04 08:32] LABS: ERYTHROCYTE SEDIMENTATION RATE 22 mm/hr (0-42)
[2020-01-04 09:24] VITALS: BP 132/68
[2020-01-04 10:58] LABS: HEMATOCRIT 29.2 % (36.0-48.0); HEMOGLOBIN 9.2 g/dL (12-16); LYMPHOCYTES 15.7 % (15-50); MCH 30.3 pg (26.0-34.0); MCHC 31.5 g/dL (31.0-37.0); MCV 96.1 fL (80.0-100.0); MEAN PLATELET VOLUME 9.9 fL (7.4-10.4); NEUTROPHILS 62.9 % (40-80); PLATELET COUNT 265 10x3/uL (130-400); RBC 3.04 10x6/uL (4.00-5.40); RDW 15.8 % (11.5-14.5)
[2020-01-04 10:59] LABS: WBC 4.5 10x3/uL (4.8-10.8)
[2020-01-04 12:05] LABS: ALBUMIN 2.4 g/dL (3.4-5.0); ANION GAP 19.1 mmol/L (8-16); BILIRUBIN - TOTAL 0.17 mg/dL (0.2-1.3); CALCIUM 8.3 mg/dL (8.5-10.1); CARBON DIOXIDE 15.4 mmol/L (21.0-32.0); CREATININE - SERUM 1.5 mg/dL (0.6-1.3); POTASSIUM - SERUM 4.5 mmol/L (3.5-5.1); PROTEIN - SERUM 5.3 g/dL (6.4-8.2); URIC ACID 6.3 mg/dL (2.6-7.2)
[2020-01-04 12:54] VITALS: BP 110/54
--- NOTE | 2020-01-04 16:32 | NUR ---
I have reviewed this patient and I concur with the Shift Assessment completed by the Licensed Practical Nurse today this shift.
[2020-01-04 17:45] VITALS: BP 100/40
[2020-01-04 20:00] VITALS: BP 122/57
--- NOTE | 2020-01-04 20:00 | NUR ---
ALERT RESTING QUITELY IN BED REPORTS HAVING SOME PAIN TO TO FOOT, REQUESTIGN PAIN PILL NOT DILAUDID STATES IT MADE ME ITCH EARILY, SEE SHIFT ASSESSMENT, CALL LIGHT IN REACH
[2020-01-05 04:13] VITALS: BP 128/74
[2020-01-05 05:40] LABS: HEMATOCRIT 28.8 % (36.0-48.0); HEMOGLOBIN 9.2 g/dL (12-16); MCH 30.6 pg (26.0-34.0); MCHC 31.9 g/dL (31.0-37.0); MCV 95.7 fL (80.0-100.0); MEAN PLATELET VOLUME 9.4 fL (7.4-10.4); NEUTROPHILS 56.1 % (40-80); PLATELET COUNT 261 10x3/uL (130-400); RBC 3.01 10x6/uL (4.00-5.40); RDW 15.5 % (11.5-14.5); WBC 4.7 10x3/uL (4.8-10.8)
[2020-01-05 06:19] LABS: ALBUMIN 2.3 g/dL (3.4-5.0); BILIRUBIN - TOTAL 0.22 mg/dL (0.2-1.3); CALCIUM 8.1 mg/dL (8.5-10.1); CREATININE - SERUM 1.3 mg/dL (0.6-1.3); POTASSIUM - SERUM 4.6 mmol/L (3.5-5.1); PROTEIN - SERUM 5.2 g/dL (6.4-8.2); VANCOMYCIN - RANDOM 19.2 ug/mL (10.0-20.0)
[2020-01-05 06:22] LABS: ANION GAP 12.5 mmol/L (8-16); CARBON DIOXIDE 21.1 mmol/L (21.0-32.0)
--- NOTE | 2020-01-05 07:18 | NUR ---
PT LYING IN BED WITH RT FOOT ELEVATED, STATES THAT HER PAIN IS UNBEARABLE AND DILAUDID CAUSES HER TO ITCH. PT STATES THE PAIN MEDICAINE CURRENTLY TAKING PO BARELY TOUCHED HER PAIN. TOLD PT THAT IF I SEE DR BEFORE SHE DOES I WILL MENTION IT TO THEM. NO OTHER NEEDS AT THIS TIME. CONTINUE WITH PLAN OF CARE
[2020-01-05 09:08] VITALS: BP 143/69
--- NOTE | 2020-01-05 11:34 | NUR ---
I have reviewed this patient and I concur with the Shift Assessment completed by the Licensed Practical Nurse today this shift.
--- NOTE | 2020-01-05 12:15 | NUR ---
RECEIVED CALL TO PREOP PT, PT IV IN RT FA IS LEAKING RESITED PT IV W/ 20G TO RT FA ABOVE WHERE ORIGINAL SITE WAS, ADMINISTERED PREOP MEDICATIONS NO OTHER NEEDS VOICED, CONTINUE WITH PLAN OF CARE
--- NOTE | 2020-01-05 12:46 | NUR ---
Nutrition follow-up: Chart reviewed Pt NPO for surgery today. Pt with poor po intake x 4 weeks and wt loss of ~11% (UBW - 112# - now 98#); observed severe fat, muscle loss to all extremeties, scapulas, clavicles and temporal areas using nutrition focused physical exam. Pt with a BMI of 16.8 on admit to hospital. Using GLIM criteria pt assessed with severe malnutrition Phenotypic 1. > 10% wweight loss in < 6 months 2. BMI: 16.2 3. Observed severe fast, muscle loss Etiologic criteria 1. < 50% intake of estimated energy needs for > 2 weeks 2. Pt with diagonsis of osteomyelitis of ankle RDN will monitor patients progress and po intake. If PO intake remains poor, may need to consider PEG tube placment and TF Following.
[2020-01-05 13:06] VITALS: BP 111/53
[2020-01-05 14:33] VITALS: BP 143/66
[2020-01-05 20:00] VITALS: BP 130/71
[2020-01-06 04:00] VITALS: BP 149/80
[2020-01-06 06:40] LABS: HEMATOCRIT 31.6 % (36.0-48.0); LYMPHOCYTES 6.2 % (15-50); MCH 30.1 pg (26.0-34.0); MCHC 31.6 g/dL (31.0-37.0); MCV 95.2 fL (80.0-100.0); MEAN PLATELET VOLUME 9.9 fL (7.4-10.4); NEUTROPHILS 89.2 % (40-80); PLATELET COUNT 281 10x3/uL (130-400); RBC 3.32 10x6/uL (4.00-5.40); RDW 15.1 % (11.5-14.5)
[2020-01-06 06:58] LABS: ALBUMIN 2.6 g/dL (3.4-5.0); ANION GAP 11.7 mmol/L (8-16); BILIRUBIN - TOTAL 0.13 mg/dL (0.2-1.3); CALCIUM 8.7 mg/dL (8.5-10.1); CARBON DIOXIDE 22.9 mmol/L (21.0-32.0); CREATININE - SERUM 1.2 mg/dL (0.6-1.3); POTASSIUM - SERUM 4.6 mmol/L (3.5-5.1); PROTEIN - SERUM 5.7 g/dL (6.4-8.2); VANCOMYCIN - RANDOM 20.4 ug/mL (10.0-20.0)
[2020-01-06 06:59] LABS: WBC 6.8 10x3/uL (4.8-10.8)
--- NOTE | 2020-01-06 07:33 | NUR ---
PT ALERT AND ORIENTED X4 UPON ENTERING, UP WITH ASSIST TO BEDSIDE COMMODE. POST OP DAY 1 FROM I&D RIGHT ANKLE, OSIRIS WRAP, C/D/I. ROOM AIR, RIGHT FOREARM SALINE LOCKED. RESTING COMFORTABLY IN BED, DENIES ANY NEEDS. WILL CONTINUE TO MONITOR.
--- NOTE | 2020-01-06 08:37 | NUR ---
PT UPRIGHT IN BED EATING BREAKFAST. MORNING MEDICATION GIVEN, NO DIFFICULTIES. DENIES ANY NEEDS. WILL CONTINUE TO MONITOR.
--- NOTE | 2020-01-06 09:15 | OP ---
PATIENT NAME: JACINTO DHALIWAL MEDICAL RECORD: [id number] :30 LOCATION:D[id number] ADMISSION DATE:01/02/20 SURGEON: NICKIE FLOREZ MD DATE OF OPERATION: 01/05/2020 PREOPERATIVE DIAGNOSIS: Infected right ankle. POSTOPERATIVE DIAGNOSIS: Infected right ankle. PROCEDURE: I and D of infected right ankle. SURGEON: Nickie Florez MD ANESTHESIA: General. INTRAOPERATIVE COMPLICATIONS: None. SUMMARY OF PATHOLOGIC FINDINGS: No gross purulent mariano was noted; however, based on the patient's previous tap and the high white count, the decision made to do a formal irrigation and debridement. OPERATIVE SUMMARY IN DETAIL: After obtaining the appropriate preoperative orthopedic surgery consent as well as anesthetic consultation, evaluation and clearance, the patient was brought to the operating room and placed on the operating table in supine position. After adequate general laryngeal mask airway was administered, the patient's right lower extremity was prepped and draped in routine sterile fashion. Anterior lateral incision was done. This was taken gently down between the extensor mechanism to the capsule itself. Upon incising, there was a paucity of fluid; however, it was cultured at this point. Serial and sequential bulb syringe debridement was done while pumping ankle back and forth to be sure and clean out medial and lateral and posterior recess. Having completed this and getting a clear return, the wound was closed with 2-0 Vicryl followed by 4-0 Prolene in running fashion. The area was locally infiltrated with 0.25% Marcaine plain. Please note, cultures were taken. All final needle and sponge counts were correct. TRANSINT:[id number] Voice Confirmation ID: [id number] DOCUMENT ID: [id number] NICKIE FLOREZ MD at 0915 CC: [id number] DICTATION DATE: 01/05/20 1416 TRAINING AND DOCUMENTATION SPECIALIST: 01/05/20 5962 ADM IN [facility] [address] [place] [address]
[2020-01-06 09:38] VITALS: BP 159/85
--- NOTE | 2020-01-06 10:09 | NUR ---
ADMINISTERED PRN PAIN MEDICATION AT THIS TIME FOR ANKLE PAIN 04/03. STARTED IV ABX. RESTING COMFORTABLY IN BED. DENIES ANY NEEDS. WILL CONTINUE TO MONITOR.
--- NOTE | 2020-01-06 12:29 | NUR ---
ADMINISTERED BENADRYL FOR ITCHING. ON BEDSIDE COMMODE. DENIES ANY NEEDS OR HELP. WILL CONTINUE TO MONITIOR.
[2020-01-06 13:00] VITALS: BP 161/81
--- NOTE | 2020-01-06 13:45 | NUR ---
ADMINISTERED HYDRO FOR 10/10 ANKLE PAIN. RESTING COMFORTABLY IN BED. DENIES ANY OTHER NEEDS. WILL CONTINUE TO MONITOR.
--- NOTE | 2020-01-06 15:33 | NUR ---
Rehab Note- Acute Inpatient Rehab prescreen order received. The patient would be a good inpatient acute rehab candidate if in agreeance with an acute inpatient rehab stay as she continues to want to discharge home where she lives alone. Will follow at this time. Thank you for this referral! Michelle Mott RN Clinical Liaison, [facility] Rehab
--- NOTE | 2020-01-06 16:31 | NUR ---
ADMINISTERED PRN DEMEROL FOR 10/10 PAIN IN ANKLE. DENIES ANY OTHER NEEDS. WILL CONTINUE TO MONITOR.
[2020-01-06 17:55] VITALS: BP 136/80
--- NOTE | 2020-01-06 18:45 | NUR ---
I have reviewed this patient and I concur with the Shift Assessment completed by the Licensed Practical Nurse today this shift.
--- NOTE | 2020-01-06 19:17 | NUR ---
ADMINISTERED PRN BENADRLY FOR ITCHING. RESTING IN BED. DENIES ANY FURTHER NEEDS.
[2020-01-06 20:00] VITALS: BP 124/68
[2020-01-07 04:00] VITALS: BP 140/75
[2020-01-07 06:30] LABS: ALBUMIN 2.3 g/dL (3.4-5.0); ANION GAP 9.3 mmol/L (8-16); BILIRUBIN - TOTAL 0.22 mg/dL (0.2-1.3); CALCIUM 8.3 mg/dL (8.5-10.1); CARBON DIOXIDE 26.4 mmol/L (21.0-32.0); CREATININE - SERUM 1.4 mg/dL (0.6-1.3); MAGNESIUM - SERUM 1.7 mg/dL (1.8-2.4); PHOSPHOROUS 3.4 mg/dL (2.5-4.9); POTASSIUM - SERUM 4.7 mmol/L (3.5-5.1); PROTEIN - SERUM 5.3 g/dL (6.4-8.2); VANCOMYCIN - RANDOM 21.5 ug/mL (10.0-20.0)
[2020-01-07 07:30] LABS: HEMATOCRIT 28.6 % (36.0-48.0); LYMPHOCYTES 17.4 % (15-50); MCH 30.2 pg (26.0-34.0); MCHC 31.5 g/dL (31.0-37.0); MEAN PLATELET VOLUME 9.5 fL (7.4-10.4); NEUTROPHILS 57.1 % (40-80); PLATELET COUNT 281 10x3/uL (130-400); RBC 2.98 10x6/uL (4.00-5.40); RDW 15.2 % (11.5-14.5)
[2020-01-07 08:30] VITALS: BP 152/74
--- NOTE | 2020-01-07 09:13 | NUR ---
OT NOTE: (DOS 01/06/2020) PT COMPLETED BUE AROM EXERCISES TOLERATED. PT COMPLETED RE POSITIONING WITH MOD A. PT COMPLETED FACE HYGIENE WITH SETUP. [phone] THANK YOU,LALIT PICHARDO
--- NOTE | 2020-01-07 10:18 | NUR ---
PATIENT UP TO BEDSIDE COMMODE. TOLD ME TO LEAVE. I EXPLAINED SHE WAS A FALL RISK THAT I NEEDED TO STAY. A/O EXPLAINED THE BED/CHAIR WAIVER FORM. SHE SIGNED IT. CL IN REACH. REHAN
[2020-01-07 10:47] LABS: ERYTHROCYTE SEDIMENTATION RATE 24 mm/hr (0-42)
[2020-01-07 12:00] VITALS: BP 122/47
--- NOTE | 2020-01-07 15:20 | NUR ---
OT NOTE: PERFORMED BED MOB WITH CGA..PT C/O SEVERE PAIN IN R ANKLE, HOWEVER, HAD ALREADY BEEN PROVIDED WITH PAIN MEDS. UE AROM EXS WHILE SITTING ON EOB. SIMPLE GROOMING TASKS WITH SET UP..PT DID NOT WANT TO STAY SITTING UP LONG DUE TO PAIN IN HER ANKLE. EMBER THOMPSON, OTR/L [phone]
--- NOTE | 2020-01-07 16:21 | NUR ---
ICE PACK PROVIDED FOR PAIN. PT IN BED. CL IN REACH. WCTM. STILL RATES PAIN 10 OUT OF 10 ON THE PAIN SCALE.
--- NOTE | 2020-01-07 16:39 | NUR ---
OT NOTE: PT COMPLETED HAIR GROOMING WITH SET UP. PT COMPLETED FACE AND HAND HYGIENE WITH SETUP. PT COMPLETED BUE AROM EXS. [phone] THANK YOU,LALIT PICHARDO
[2020-01-07 16:40] VITALS: BP 123/61
[2020-01-07 20:00] VITALS: BP 130/71
[2020-01-08] VITALS: BP 143/97
[2020-01-08 04:00] VITALS: BP 151/55
[2020-01-08 05:52] LABS: ALBUMIN 2.3 g/dL (3.4-5.0); ANION GAP 8.7 mmol/L (8-16); BILIRUBIN - TOTAL 0.14 mg/dL (0.2-1.3); CALCIUM 8.2 mg/dL (8.5-10.1); CARBON DIOXIDE 27.3 mmol/L (21.0-32.0); CREATININE - SERUM 1.4 mg/dL (0.6-1.3); MAGNESIUM - SERUM 1.7 mg/dL (1.8-2.4); PHOSPHOROUS 3.8 mg/dL (2.5-4.9); PROTEIN - SERUM 5.1 g/dL (6.4-8.2); VANCOMYCIN - RANDOM 16.2 ug/mL (10.0-20.0)
[2020-01-08 06:24] LABS: HEMATOCRIT 27.8 % (36.0-48.0); HEMOGLOBIN 8.7 g/dL (12-16); LYMPHOCYTES 16.5 % (15-50); MCH 30.2 pg (26.0-34.0); MCHC 31.3 g/dL (31.0-37.0); MCV 96.5 fL (80.0-100.0); MEAN PLATELET VOLUME 9.4 fL (7.4-10.4); NEUTROPHILS 61.2 % (40-80); PLATELET COUNT 266 10x3/uL (130-400); RBC 2.88 10x6/uL (4.00-5.40); RDW 15.1 % (11.5-14.5); WBC 4.3 10x3/uL (4.8-10.8)
--- NOTE | 2020-01-08 08:00 | NUR ---
FITTED NON SKID SOCK AROUND DRESSING ON RIGHT ANKLE. NO FURTHER NEEDS AT THIS TIME. CL IN REACH. WCTM
[2020-01-08 09:17] VITALS: BP 168/78
[2020-01-08] MEDS ORDERED: BACTRIM DS TAB1 EAC1 PO (10:04)
--- NOTE | 2020-01-08 12:30 | NUR ---
OT NOTE: PT DOING VERY WELL TODAY. NOW THAT SHE HAS ADVANCED TO WBAT, SHE IS MUCH MORE MOBILE. BED MOB WITH SPV; TRANSFERS TO BS COMMODE WITH SBA; HYGIENE WITH SET UP; AMB IN ROOM AND OUTSIDE OF ROOM (APPROX 40 FT) WITH WALKER AND CGA..PT REPORTED SIGNIFICANT PAIN AFTER ABOUT 40 FT.. BACK TO BED WITH SBA; BED MOB INCLUDING GETTING FEET BACK IN BED AND SCOOTING UP IN BED WITH SPV. UE DRESSING WITH SET UP; SIMPLE GROOMING TASKS WITH SET UP.. D/W PT AGAIN, THE BENEFITS OF REHAB.. PT STATES THAT SHES NOT GOING TO REHAB OR A [facility], THAT SHE IS GOING HOME.. MET WITH CM TO INFORM HER OF CONVERSATION WITH PT.. RECOMMEND IP REHAB FOR A SHORT STENT BEFORE RETURNING HOME ALONE, HOWEVER, PT IS ADAMENT ABOUT GOING HOME. EMBER THOMPSON, OTR/L [phone]
[2020-01-08 13:17] VITALS: BP 133/63
--- NOTE | 2020-01-08 14:36 | MORECARE ---
CASE MANAGEMENT DISCHARGE SUMMARY PATIENT: JACINTO DHALIWAL UNIT: [id number] ADM DATE: 01/02/20 AGE: 89 : 30 SEX: F ROOM/BED: D.2237 AUTHOR: NAKIA,DOC PHYSICIAN: REFERRING PHYSICIAN: JASMIN OSOD MD DATE OF SERVICE: 01/08/20 Discharge Plan Patient Name: JACINTO DHALIWAL Facility: [facility]:[place] : 1930 Planned Disposition: Home Health Service Anticipated Discharge Date: Discharge Date: Expected LOS: Initial Reviewer: [email or web address] Initial Review Date: 01/02/2020 Generated: 01/08/20 3:35 pm Comments DCP- Discharge Planning Updated by [email or web address]: Kellie Edwards on 01/08/20 1:[address] Patient Name: JACINTO DHALIWAL Admission Status: ER Accout number: [id number] Admission Date: 01-02-2020 : 1930 Admission Diagnosis:PAIN IN RIGHT ANKLE AND JOINTS OF RIGHT FOOT Attending: JASMIN KENDRICK Current LOS: 6 Anticipated DC Date: Planned Disposition: Home Health Service Primary Insurance: MEDICARE A & B Discharge Planning Comments: CM met with patient at bedside after explaining CM role and obtaining verbal consent. CM discussed availability / needs of home health, REHAB and medical equipment. PATIENT WOULD LIKE CARE 4 HH AND A WALKER THROUGH [facility]. SUSAN SIGNED FOR BOTH. IMM SIGNED. PATIENT TO DC TO HOME AFTER DELIVERY OF WALKER TO PATIENT'S ROOM. CM TO FOLLOW AND ASSIST NEEDED. I TALKED WITH PATIENT ABOUT REHAB OR SNF AND SHE SAID NO, BUT SHE WOULD ACCEPT HH. Veterinary Bacteriologist: Kellie Edwards DCPIA - Discharge Planning Initial Assessment Updated by [email or web address]: Kellie Edwards on 01/08/20 2:27 pm * Is the patient Alert and Oriented? Yes * PCP PERRY * [facility] * Preadmission Environment Home Alone * ADLs Independent * Community resources currently utilized None * Additional services required to return to the preadmission environment? Yes * Can the patient safely return to the preadmission environment? Yes * Has this patient been hospitalized within the prior 30 days at any hospital? No External Providers External Provider: [facility] Next Contact Date: Service Request Date: Service Type: Resolution: Reviewer: Comments: External Provider: [facility] Next Contact Date: Service Request Date: Service Type: Resolution: Reviewer: Comments: Coverage Notice Reviewer: [email or web address] Edwards Notice Issued Date-Time: 01/08/2020 14:30 Notice Type: IM Discharge Notice Notice Delivered To: Patient Relationship to Patient: Real Estate Coordinator Name: Delivery Method: - Myra Days: Prior Verbal Notification: Recipient Understood Notice: Recipient Signature: Med Rec Note Co-signed by Attending: Coverage Notice Comment: Reviewer: [id number] Edwards Notice Issued Date-Time: 01/08/2020 14:30 Notice Type: Patient Choice Letter Notice Delivered To: Patient Relationship to Patient: Real Estate Coordinator Name: Delivery Method: HAND - Hand Delivered Myra Days: Prior Verbal Notification: Recipient Understood Notice: Yes Recipient Signature: Yes Med Rec Note Co-signed by Attending: Coverage Notice Comment: CARE 4 HH AND WHEELCHAIR WITH [facility]. Patient Name: JACINTO DHALIWAL Page [phone] at 1436 All edits/amendments must be made on the electronic document DICTATION DATE: 01/08/20 1435 CORRESPONDENCE CLERK: MODESTA 01/08/20 1435 RPT#: [id number] DC DATE: STATUS: ADM IN [facility] [address] [place] [address] END OF REPORT
[2020-01-08] MEDS ORDERED: HYDROCODON-ACE1 EA10 PO (14:43)
--- NOTE | 2020-01-08 16:23 | NUR ---
IV THERAPY REMOVED FROM RIGHT FOREARM TIP INTACT. DISCHARGE INSTRUCTIONS GIVEN. PT VERBALIZED UNDERSTANDING. STATED KHOA WILL BE HERE AFTER AWHILE TO PICK HER UP. CL IN REACH. WCTM UNTIL DEPARTURE.
--- NOTE | 2020-01-08 19:15 | NUR ---
OT NOTE: PT COMPLETED SUPINE TO SIT WITH CGA. PT COMPLETED SIT TO STAND WITH CGA. PT COMPLETED UE AROM ACTIVITIES WITH FUNCTIONAL TASKS. [id number] THANK YOU,LALIT PICHARDO
--- NOTE | 2020-01-09 08:15 | MORECARE ---
CASE MANAGEMENT DISCHARGE SUMMARY PATIENT: JACINTO DHALIWAL UNIT: [id number] ADM DATE: 01/02/20 AGE: 89 : 30 SEX: F ROOM/BED: D.2237 AUTHOR: DALILA YEE PHYSICIAN: REFERRING PHYSICIAN: JASMIN SOOD MD DATE OF SERVICE: 01/09/20 Discharge Plan Patient Name: JACINTO DHALIWAL Facility: [facility]:[place] : 1930 Planned Disposition: Home Health Service Anticipated Discharge Date: Discharge Date: 01/08/2020 Expected LOS: Initial Reviewer: [email or web address] Initial Review Date: 01/02/2020 Generated: 01/09/20 9:14 am Comments DCP- Discharge Planning Updated by [email or web address]: Kellie Edwards on 01/08/20 1:[address] Patient Name: JACINTO DHALIWAL Admission Status: ER Accout number: [id number] Admission Date: 01-02-2020 : 1930 Admission Diagnosis:PAIN IN RIGHT ANKLE AND JOINTS OF RIGHT FOOT Attending: JASMIN KENDRICK Current LOS: 6 Anticipated DC Date: Planned Disposition: Home Health Service Primary Insurance: MEDICARE A & B Discharge Planning Comments: CM met with patient at bedside after explaining CM role and obtaining verbal consent. CM discussed availability / needs of home health, REHAB and medical equipment. PATIENT WOULD LIKE CARE 4 HH AND A WALKER THROUGH [facility]. SUSAN SIGNED FOR BOTH. IMM SIGNED. PATIENT TO DC TO HOME AFTER DELIVERY OF WALKER TO PATIENT'S ROOM. CM TO FOLLOW AND ASSIST NEEDED. I TALKED WITH PATIENT ABOUT REHAB OR SNF AND SHE SAID NO, BUT SHE WOULD ACCEPT HH. Boat Deckhand: Kellie Edwards DCPIA - Discharge Planning Initial Assessment Updated by [email or web address]: Kellie Edwards on 01/08/20 2:27 pm * Is the patient Alert and Oriented? Yes * PCP PERRY * Pharmacy [facility] * Preadmission Environment Home Alone * ADLs Independent * Community resources currently utilized None * Additional services required to return to the preadmission environment? Yes * Can the patient safely return to the preadmission environment? Yes * Has this patient been hospitalized within the prior 30 days at any hospital? No Coverage Notice Reviewer: [email or web address] - Kellie Edwards Notice Issued Date-Time: 01/08/2020 14:30 Notice Type: IM Discharge Notice Notice Delivered To: Patient Relationship to Patient: Buttonhole Maker Name: Delivery Method: - Myra Days: Prior Verbal Notification: Recipient Understood Notice: Recipient Signature: Med Rec Note Co-signed by Attending: Coverage Notice Comment: Reviewer: [email or web address] Rudi Edwards Notice Issued Date-Time: 01/08/2020 14:30 Notice Type: Patient Choice Letter Notice Delivered To: Patient Relationship to Patient: Buttonhole Maker Name: Delivery Method: HAND - Hand Delivered Myra Days: Prior Verbal Notification: Recipient Understood Notice: Yes Recipient Signature: Yes Med Rec Note Co-signed by Attending: Coverage Notice Comment: CARE 4 HH AND WHEELCHAIR WITH [facility]. Last DP export: 01/08/20 1:36 p Patient Name: JACINTO DHALIWAL Page [phone] at 0815 All edits/amendments must be made on the electronic document DICTATION DATE: 01/09/20813 BORING MILL SET UP OPERATOR VERTICAL: MODESTA 01/09/20813 RPT#: [id number] DC DATE:01/08/20 STATUS: DIS IN [facility] [address] [place] [address] END OF REPORT
== END 2020-01-08 18:18 | disposition home health service (06) | DRG 492 ==
LOC: D.ER 12:49 → D.MS 17:51
PROVIDERS: Family Medicine; Orthopaedic Surgery; ADMIT Family Medicine Adult Medicine; ATTEND Family Medicine Adult Medicine
PROC: 0S9F3ZZ Drainage of Right Ankle Joint, Percutaneous Approach (ICD-10-PCS; 2020-01-03)
PROC: 0S9F0ZZ Drainage of Right Ankle Joint, Open Approach (ICD-10-PCS; principal; 2020-01-05 15:45)
DX: M86.172 Other acute osteomyelitis, left ankle and foot (principal); E43 Unspecified severe protein-calorie malnutrition; N17.9 Acute kidney failure, unspecified; Z68.1 Body mass index [BMI] 19.9 or less, adult; S82.64XA Nondisplaced fracture of lateral malleolus of right fibula, initial encounter for closed fracture; Z86.73 Personal history of transient ischemic attack (TIA), and cerebral infarction without residual deficits; Z86.718 Personal history of other venous thrombosis and embolism

== ENCOUNTER 2020-03-10 09:09 | Inpatient (IN) | payer MEDICARE, BC ==
[~2020-03-10] VITALS: Ht 162.6 cm; Wt 45.4 kg
--- NOTE | ~2020-03-10 | HEMODYNAMI ---
PATIENT:JACINTO DHALIWAL MEDICAL RECORD: [id number] : [birth year] LOCATION:[place] [address] ADMISSION DATE: 03/10/20 Generatedon:03/11/202015:43 Patient name: JACINTO DHALIWAL Patient #: [id number] SSN: : 1930 Date of study: 03/11/2020 Page: Of Hemodynamic Procedure Report Patient Data Patient Demographics Procedure consent was obtained First Name: JACINTO Gender: Female Last Name: MADHURI : 1930 Patient #: [id number] Age: 89 year(s) Race: Unknown Additional ID: [id number] Contact details [address]: [address] [place] [address] [place] State: [place] City: [place] Zip code: [address] Past Medical History Allergies: No known allergies Admission Admission Data Admission Date: 03/10/2020 Admission Time: 12:58 Room #: 2125 Height (in.): 64 BSA: 1.45 (m2) Height (cm.): 162.56 BMI: 16.99 (kg/m2) Weight (lbs.): 99 Weight (kg.): 44.91 Procedure Procedure Types Cath Procedure Peripheral Cath Diagnostic Procedure Branch Maker Peripheral Procedures Miscellaneous Aspiration/Injection (Joint) Procedure Description Procedure Date Procedure Date: 03/11/2020 Procedure Start Time: 15:33 Procedure Staff Name Function Tomás Keller MD Performing Physician Bianca Tamayo RT Ball Machine Operator Hemodynamics Rest BSA: 1.45 (m2) O2 Consumption: Estimated: 197.2 (ml/min) O2 Consumption indexed: Estimated:136 (ml/min/m) Pre Cath Intra NCS Post Cath Procedure Log Time Note 15:16:41 Patient Height : 64 inches 15:16:45 Patient Weight : 99 lbs 15:32:19 Bianca Tamayo RT(R) sent for patient. Start room use. 15:32:20 Time tracking: Regular hours (M-F 7:00 - 5:00) 15:32:25 Signed procedure consent form obtained from patient. 15:32:26 Warm blankets applied, and jasmine hugger turned on for patient comfort. 15:32:26 Correct patient and procedure confirmed by team. 15:32:27 ECG and BP/O2 sat monitors applied to patient. 15:32:28 - 15:32:33 H&P Date Dictated: 03/11/2020 Within 30 days and on chart.. 15:32:35 Pre-procedure instructions explained to patient. 15:32:43 Patient allergic to No known allergies 15:32:46 Is the patient allergic to Iodine/contrast media? No. 15:32:58 Right Ankle area was prepped with betadine and draped in sterile fashio n 15:33:09 Physician arrived 15:33:10 --------ALL STOP TIME OUT------ 15:33:11 Final Timeout: patient, procedure, and site verified with staff and physician. All members of the team are in agreement. 15:33:19 Right Ankle site verified by team. 15:33:33 Procedure started. 15:33:33 Full Disclosure recording started 15:39:22 fluid aspirated from ankle and sent to lab for analysis 15:39:28 Procedure ended.(Physican Out) 15:39:39 SAFE-T PLUS MYELOGRAM TRAY opened to sterile field. 15:42:58 Report given to [employer]ur[employer] II. Device Usage Item Name Manufacture Quantity Catalog Hospital Part Current Minimal Lot# / Number Charge Number Stock Stock Serial# Code SAFE-T [employer] 1 [id number] PLUS MYELOGRAM TRAY Signature Audit [place] Stage Time Signature Unsigned Intra-Procedure 03/11/2020 Bianca Tamayo 3:43:11 PM RT(R) [facility] [address] [place] [address]
[~2020-03-10 09:09] MED LIST changes: +BACTRIM DS TAB1 EAC1 PO; +FERROUS SULFAT325 MG PO; +HYDROCODON-ACE1 EA10 PO
[2020-03-10] MEDS ORDERED: PREDNISONE10 MG PO (09:18)
[2020-03-10] MEDS ORDERED: ULTRAM50 MG PO (09:19)
[2020-03-10] MEDS ORDERED: PLAVIX75 MG PO (09:20)
[2020-03-10 10:00] VITALS: BP 115/86
[2020-03-10 10:01] LABS: HEMATOCRIT 34.2 % (36.0-48.0); HEMOGLOBIN 10.9 g/dL (12-16); MCH 30.8 pg (26.0-34.0); MCHC 31.9 g/dL (31.0-37.0); MCV 96.6 fL (80.0-100.0); MEAN PLATELET VOLUME 9.9 fL (7.4-10.4); PLATELET COUNT 354 10x3/uL (130-400); RBC 3.54 10x6/uL (4.00-5.40); RDW 18.2 % (11.5-14.5); WBC 26.8 10x3/uL (4.8-10.8)
[2020-03-10 10:07] LABS: ALBUMIN 2.3 g/dL (3.4-5.0); ALKALINE PHOSPHATASE 147 U/L (30-120); ALT (SGPT) 117 U/L (10-68); AMYLASE - SERUM 130 U/L (25-115); BILIRUBIN - TOTAL 0.16 mg/dL (0.2-1.3); CALC OSMOLALITY 279 mosm/kg (275-300); CALCIUM 7.6 mg/dL (8.5-10.1); CHLORIDE - SERUM 106 mmol/L (98-107); CREATININE - SERUM 2.5 mg/dL (0.6-1.3); GLUCOSE 71 mg/dL (74-106); LIPASE 500 U/L (73-393); POTASSIUM - SERUM 3.9 mmol/L (3.5-5.1); PROTEIN - SERUM 5.4 g/dL (6.4-8.2); SODIUM 135 mmol/L (136-145); TROPONIN-I < 0.017 ng/mL (0.000-0.060); UREA NITROGEN 47 mg/dL (7-18); eGFR NON AFRICAN AMERICAN 19 mL/min (90-120)
[2020-03-10 10:09] LABS: CARBON DIOXIDE 8.7 mmol/L (21.0-32.0)
[2020-03-10 10:13] LABS: APTT 35.4 SECONDS (22.8-39.4); INR 1.31 (0.85-1.17); PROTIME 16.2 SECONDS (11.6-15.0)
[2020-03-10 10:22] LABS: CKMB 3.6 U/L (0.0-3.6); CREATINE KINASE 27 UL (21-215); PRO BNP 11495 pg/mL (0-450)
--- NOTE | 2020-03-10 10:27 | NUR ---
URINE SENT TO THE LAB.
[2020-03-10 10:52] LABS: BILIRUBIN NEGATIVE (NEGATIVE); KETONE NEGATIVE (NEGATIVE); NITRITE NEGATIVE (NEGATIVE); UROBILINOGEN NORMAL mg/dL (< 2)
[2020-03-10 10:54] LABS: BACTERIA MODERATE /HPF (NONE SEEN); EPITHELIAL CELLS 0-5 /hpf (0-5)
[2020-03-10 11:30] VITALS: BP 122/67
[2020-03-10 12:30] VITALS: BP 141/80
[2020-03-10 13:30] VITALS: BP 127/47
[2020-03-10 13:37] LABS: LYMPHOCYTES 10 % (15-50); MONOCYTES 6 % (2-11); NEUTROPHILS 79 % (40-80); ROULEAUX 1+
[2020-03-10 13:38] LABS: CRENATED CELLS 1+; PLATELET ESTIMATE NORMAL; SMUDGE CELLS OCC
--- NOTE | 2020-03-10 14:55 | NUR ---
TO MRI. MAITRE D' TO TRANSPORT PT TO ROOM 9234 AFTER MRI.
[2020-03-10 17:09] VITALS: BP 122/53; BMI 17.2
--- NOTE | 2020-03-10 17:23 | NUR ---
RECEIVED PT FROM ER. PT IS AAO AND UP WITH ASSIST. NO S/S OF DISTRESS NOTED. FALL PRECAUTIONS IN PLACE. BED ALARM ON AND FUNCTIONING PROPERLY. QUICKSTART, HISTORY, MED REQ, AND ASSESSMENT COMPLETE. SPOKE WITH KATIE(FAMILY MEMBER) AND NOTIFIED HER OF PATIENTS STATUS AND THAT WE ARE STILL WAITING ON COVID RESULTS. PT DENIES ANY NEEDS AT THIS TIME. LR INFUSING @125ML/HR VIA L.AC PIV. RR EVEN AND UNLABORED ON RA. VSS AND WNL. WILL CTM.
[2020-03-10 20:30] VITALS: BP 128/53
[2020-03-11 01:55] VITALS: BP 136/96
[2020-03-11 05:58] VITALS: BP 132/56
[2020-03-11 07:32] LABS: BASOPHILS 0 % (0-2); EOSINOPHILS 0 % (0-7); HEMATOCRIT 28.3 % (36.0-48.0); IMMATURE GRANULOCYTES 1.8 % (0-5); LYMPHOCYTES 1.6 % (15-50); MCH 29.6 pg (26.0-34.0); MCHC 31.8 g/dL (31.0-37.0); MCV 93.1 fL (80.0-100.0); MEAN PLATELET VOLUME 9.7 fL (7.4-10.4); MONOCYTES 1.2 % (2-11); NEUTROPHILS 95.4 % (40-80); PLATELET COUNT 274 10x3/uL (130-400); RBC 3.04 10x6/uL (4.00-5.40); WBC 20.9 10x3/uL (4.8-10.8)
[2020-03-11 07:40] LABS: ALBUMIN 1.9 g/dL (3.4-5.0); BILIRUBIN - TOTAL 0.24 mg/dL (0.2-1.3); CREATININE - SERUM 2.7 mg/dL (0.6-1.3); POTASSIUM - SERUM 3.7 mmol/L (3.5-5.1); PROTEIN - SERUM 4.8 g/dL (6.4-8.2)
[2020-03-11 07:43] LABS: CALCIUM 6.8 mg/dL (8.5-10.1); CARBON DIOXIDE 9.7 mmol/L (21.0-32.0)
--- NOTE | 2020-03-11 07:43 | NUR ---
PT INFORMED OF NPO STATUS FOR ULTRASOUND.
[2020-03-11 07:57] VITALS: BP 126/60
--- NOTE | 2020-03-11 09:47 | NUR ---
PT TO BSC TO VOID. RLE SORE ON TRANSFER. SWOLLEN AND RED. WAITING ON ULTRASOUND AND VENOUS DOPPLAR.
[2020-03-11 11:19] VITALS: BP 134/66
[2020-03-11 13:30] VITALS: Ht 162.6 cm; Wt 45.4 kg
[2020-03-11 15:00] VITALS: BP 123/54
--- NOTE | 2020-03-11 15:07 | NUR ---
IV LEAKING. REMOVED AND NEW ONE SITED TO LEFT UPPER ARM.
--- NOTE | 2020-03-11 16:22 | NUR ---
PT BACK FROM SPECIALS FOR ANKLE ASPIRATION.
[2020-03-11 17:58] VITALS: BP 125/55
[2020-03-12] VITALS: BP 108/50
[2020-03-12 04:00] VITALS: BP 129/57
[2020-03-12 09:58] VITALS: BP 119/47
[2020-03-12 10:51] LABS: BASOPHILS 0.1 % (0-2); EOSINOPHILS 0.3 % (0-7); HEMATOCRIT 29.1 % (36.0-48.0); HEMOGLOBIN 9.6 g/dL (12-16); IMMATURE GRANULOCYTES 2.2 % (0-5); LYMPHOCYTES 2.8 % (15-50); MCH 30.8 pg (26.0-34.0); MCV 93.3 fL (80.0-100.0); MEAN PLATELET VOLUME 9.5 fL (7.4-10.4); MONOCYTES 3.4 % (2-11); NEUTROPHILS 91.2 % (40-80); RBC 3.12 10x6/uL (4.00-5.40); RDW 17.9 % (11.5-14.5)
[2020-03-12 10:52] LABS: PLATELET COUNT 196 10x3/uL (130-400); WBC 14.4 10x3/uL (4.8-10.8)
[2020-03-12 11:14] LABS: ALBUMIN 1.9 g/dL (3.4-5.0); BILIRUBIN - TOTAL 0.23 mg/dL (0.2-1.3); CREATININE - SERUM 2.7 mg/dL (0.6-1.3); PROTEIN - SERUM 4.3 g/dL (6.4-8.2)
[2020-03-12 11:17] LABS: CARBON DIOXIDE 16.7 mmol/L (21.0-32.0)
[2020-03-12 11:19] LABS: POTASSIUM - SERUM 2.7 mmol/L (3.5-5.1)
[2020-03-12 16:16] VITALS: BP 159/87
--- NOTE | 2020-03-12 16:23 | NUR ---
PT HAD PRIOR SKIN TEAR TO LEFT ARM, LEFT LOWER LEG, AND RIGHT ELBOW. CLEANED SKIN TEARS, PLACED NONADHERENT PAD, WRAPPED WITH KERLEX, AND TAPPED KERLEX DOWN. CLEANED PT AND APPLIED NEW LINENE. WILL CTM.
[2020-03-12 17:38] LABS: ANION GAP 16.7 mmol/L (8-16); CREATININE - SERUM 2.7 mg/dL (0.6-1.3); MAGNESIUM - SERUM 1.7 mg/dL (1.8-2.4)
[2020-03-12 17:39] LABS: POTASSIUM - SERUM 2.7 mmol/L (3.5-5.1)
[2020-03-12 18:35] LABS: ERYTHROCYTE SEDIMENTATION RATE 17 mm/hr (0-42)
--- NOTE | 2020-03-12 20:11 | NUR ---
RECIEVED UP IN BED WITH EYES CLOSED. AROUSES TO VERBAL STIMULI. CONFUSED TO PLACE, TIME AND SITUATION. REPORTED NO IV FROM OFF GOING SHIFT. WILL ATTEMPT TO RESTART. S/T TO LT ARM. ALSO, HAS DRESSING TO RIGHT FA. LINEAR SCAB TO LT UPPER ARM. BRUISING TO FLAKITA ARMS. + 3 PITTING EDEMA TO FLAKITA FEET. INCONT OF B/B. NO S/S OF DISTRESS OBSERVED.
[2020-03-12 20:34] VITALS: BP 96/51
--- NOTE | 2020-03-13 00:47 | NUR ---
JAVA PORTAL DEVELOPER REPORTED O2 SAT OF 77. WHEN ATTEMPTING TO GET O2 SAT. IT WOULD NOT REGISTER . CALLED RT AND ARRIVED SHORTLY. ABLE TO GET SAT UP TO 99%. THEN DECREASE O2 UNTIL STABLEIZED AT 96% ON 3 LITERS. CHANGED AND REPOSITIONED AT THAT TIME. POTASSIUM WAS 2.7 CRITICAL WHEN THIS NURSE CAME TO WORK. IV POTASSIUM STILL HANGING. PT PULLED IV OUT. GAVE PO POTASSIUM AND WILL RECHECK WITH AM LABS. RESTING COMFORTABLY AT THIS TIME. RESP EVEN AND UNLABORED.
[2020-03-13 05:33] VITALS: BP 100/47
[2020-03-13 07:00] VITALS: BP 129/53
--- NOTE | 2020-03-13 07:00 | NUR ---
RECEIVED REPORT. ASSUMED CARE OF PATIENT. PATIENT RESTING IN BED, ORIENTED TO NAME ONLY. CALL LIGHT WITHIN REACH. BEDALARM PATENT TO ALL SURFACES OF BED. SR UP X 3. WHITE BOARD UPDATED, BEDSIDE SHIFT REPORT COMPLETE.
[2020-03-13 08:29] LABS: BASOPHILS 0.1 % (0-2); EOSINOPHILS 0.1 % (0-7); HEMATOCRIT 25.9 % (36.0-48.0); HEMOGLOBIN 8.6 g/dL (12-16); IMMATURE GRANULOCYTES 1.1 % (0-5); LYMPHOCYTES 3.5 % (15-50); MCH 30.1 pg (26.0-34.0); MCHC 33.2 g/dL (31.0-37.0); MEAN PLATELET VOLUME 10.1 fL (7.4-10.4); MONOCYTES 3.7 % (2-11); NEUTROPHILS 91.5 % (40-80); PLATELET COUNT 209 10x3/uL (130-400); RBC 2.86 10x6/uL (4.00-5.40); RDW 17.8 % (11.5-14.5); WBC 15.3 10x3/uL (4.8-10.8)
[2020-03-13 08:33] LABS: MCV 90.6 fL (80.0-100.0)
[2020-03-13 08:46] LABS: ALBUMIN 1.8 g/dL (3.4-5.0); BILIRUBIN - TOTAL 0.21 mg/dL (0.2-1.3); CARBON DIOXIDE 23.6 mmol/L (21.0-32.0); CREATININE - SERUM 2.3 mg/dL (0.6-1.3); MAGNESIUM - SERUM 1.6 mg/dL (1.8-2.4); PHOSPHOROUS 4.4 mg/dL (2.5-4.9); PROTEIN - SERUM 4.2 g/dL (6.4-8.2)
[2020-03-13 08:53] LABS: ANION GAP 15.3 mmol/L (8-16); POTASSIUM - SERUM 2.9 mmol/L (3.5-5.1)
[2020-03-13 08:56] LABS: CALCIUM 6.1 mg/dL (8.5-10.1)
--- NOTE | 2020-03-13 10:00 | NUR ---
MEDICATED FOR PAIN AT THIS TIME. NO DISTRESS. PATIENT DAUGHTER AT BEDSIDE. CALL LIGHT WITHIN REACH. PATIENT IS NOW RESTING.
--- NOTE | 2020-03-13 10:30 | NUR ---
CALLED AND SPOKE TO AUDREY MCLEOD THIS AM TO REQUEST MILO BED. UNABLE TO CURRENTLY KEEP PATIENT SAFE FROM FALLING. PATIENT IS CONFUSED, ORIENTED TO TIME, BED ALARM PATENT, PATIENT CONTINUALLY IS CLIMBING TO THE END OF THE BED. DISCUSSED NEAR MISS INCIDENT WITH PATIENT THIS AM PATIENT CLIMBED TO END OF BED AND THIS CERTIFIED MEDICAL DOSIMETRIST WAS ABLE TO KEEP PATIENT FROM FALLING SHE STOOD UP. MILO BED HAS BEEN REQUESTED FOR SAFETY DUE TO DECREASED COGNITIVE AWARENESS.
--- NOTE | 2020-03-13 10:59 | NUR ---
22 GAUGE IV PLACED TO LEFT FOREARM X 1 STICK, GOOD BLOOD RETURN, EASY FLUSH. TAPED DATED AND SECURED. PATIENT TOLERATED IV PLACEMENT WELL. 23 GAUGE IV TO LEFT SHOULDER NOTED TO HAVE INFILTRATED, PATIENT THRASHING ABOUT IN BED.
--- NOTE | 2020-03-13 11:07 | NUR ---
CONTINUE TO WAIT TO RECIEVE ORDER FOR MILO BED. PATIENT DOES NOT FOLLOW COMMANDS, CONTINUES TO TRY AND GET OOB, NO FAMILY AT BEDSIDE. PATIENT REMAINS CONFUSED, ORIENTED TO SELF ONLY AT TIMES. CHARGE NURSE AWARE. PATIENT NOW ATTEMPTING TO PULL OUT NEWLY PLACED IV TO LEFT FOREARM.
--- NOTE | 2020-03-13 11:48 | NUR ---
THIS RESEARCH PROFESSOR IS NOW AT PATIENT BEDSIDE IN ORDER TO TRY AND KEEP PATIENT SAFE. STILL NO ORDER RECEIVED FOR MILO BED AND PATIENT IS A FALL RISK/ HIGH RISK FOR INJURY. SR UP FOR SAFETY AND THIS RESEARCH PROFESSOR REMAINS AT BEDSIDE AT THIS TIME.
--- NOTE | 2020-03-13 12:18 | NUR ---
NEW ORDER OBTAINED FOR ENCLOSURE BED. ORDERS PLACED IN SYSTEM AT THIS TIME. THIS BUSINESS TECHNOLOGY ANALYST REMAINS AT BEDSIDE TO KEEP PATIENT SAFE. PATIENT REFUSING NOON MEAL AT THIS TIME. PATIENT HAS EYES CLOSED AND APPEARS TO BE RESTING WELL AT THIS TIME.
--- NOTE | 2020-03-13 13:51 | NUR ---
INCONTINENT CARES PROVIDED. THIS RADAR OPERATOR REMAINS AT BEDSIDE. PATIENT NOTED TO BE PICKING AT HER ARMS CAUSING MORE DAMAGE TO HER SKIN. PATIENT WILL FOLLOW COMMANDS ON SHORT TERM BASIS ONLY CONSISTING OF ABOUT 30 SECONDS. REPETATIVE INSTRUCTION PROVIDED TO PATIENT.
[2020-03-13 15:00] VITALS: BP 123/66
--- NOTE | 2020-03-13 15:53 | NUR ---
PATIENT PLACED IN AN ENCLOSURE BED AT THIS TIME FOR SAFETY. PATIENT WAS AT INCREASED RISK FOR FALLS DUE TO DECREASED COGNITIVE STATUS AND NO FAMILY AT BEDSIDE. THIS U.S. COMMISSIONER PROVIDED VERBAL QUES AND REMINDERS, ALL WERE INEFFECTIVE. PATIENT IS ALSO BEING MONITORED BY VIDEO SURVEILLANCE BY THIS U.S. COMMISSIONER. NO DISTRESS AT THIS TIME. ENCLOSURE BED IS FASTENED.
[2020-03-13 17:35] LABS: MAGNESIUM - SERUM 1.8 mg/dL (1.8-2.4); POTASSIUM - SERUM 3.3 mmol/L (3.5-5.1)
--- NOTE | 2020-03-13 18:00 | NUR ---
CALLED TO PATIENT ROOM BY CEO, PATIENT HAD BLOOD SMEARED ALL OVER HER. PATIENT NOTED TO HAVE PULLED OUT HER IV, 22 GAUGE TO LEFT FOREARM, CATHETER TIP INTACT. PRESSURE HELD X 1 MINUTE UNTIL BLEEDING STOPPED. 2X2 GAUZE APPLIED AND SECURED WITH MEPILEX. PATIENT REMAINS IN ENCLOSURE BED AT THIS TIME.
--- NOTE | 2020-03-13 20:08 | NUR ---
REMAINS IN MILO BED. LYING IN BED WITH EYES CLOSED. AROUSES TO VERBAL STIMULI. ORIENTED TO NAME ONLY. CONT TO HAVE WEEPING EDEMA TO UPPER EXTREMITIES. NO IV ACCESS AT THIS TIME. CONT TX FOR DVT. NO S/S OF DISTRESS OBSERVED.
[2020-03-13 20:50] VITALS: BP 129/65
[2020-03-14 00:50] VITALS: BP 104/76; BP 133/70
--- NOTE | 2020-03-14 00:52 | NUR ---
WENT INTO ROOM AND PT HAD BLOOD ON HER AND BED. SHE WAS SCRATCING A SKIN TEAR AND CAUSING IT TO BLEED. HAD TAKEN OFF B/P CUFF. V/S TAKEN AND UNABLE TO DO O2 SAT D/T HER PULLING AT THE LINE. SHE IS VERY CONFUSED. PULL PADS OUT FROM UNDERNEATH HER. CLEANED HER WITH SOAP AND WATER. CLEANSED WOUND AND APPLIED TEGRADERM. SHE ATTEMPTED TO SCRATCH AT HER LANDON AND FELT THE NEW DRESSING AND STOPPED TRYING TO DIG AT IT. ORIENTED TO PERSON ONLY. CALLING OUT "OH GOD". COMPLETE BED CANGED AND GOWN CHANGE. PUT A PULL UP ON HER. SHE HAS NOW SETTLED DOWN AND EYES ARE CLOSED. NO OTHER S/S OF DISTRESS OBSERVEED.
--- NOTE | 2020-03-14 02:19 | NUR ---
HAS FINALLY SETTLED DOWN. RESTING IN BED WITH EYES CLOSED. NO S/S OF DISTRESS OBSERVED. O2@ 4 LITERS PER N/C IN PLACE.
[2020-03-14 04:36] VITALS: BP 128/72
--- NOTE | 2020-03-14 07:00 | NUR ---
RECEIVED REPORT. ASSUMED CARE OF PATIENT. PATIENT REMAINS IN ENCLOSURE BED. RESTING WITH EYES CLOSED. RESP EVEN AND UNLABORED. PATIENT HAS NO IV ACCESS AT THIS TIME. CALL LIGHT WITHIN REACH. PATIENT EASILY AROUSED. LAB AT BEDSIDE FOR BLOOD WITHDRAWL. NO DISTRESS.
[2020-03-14 07:46] VITALS: BP 116/51
[2020-03-14 07:53] LABS: BASOPHILS 0.1 % (0-2); EOSINOPHILS 0.3 % (0-7); IMMATURE GRANULOCYTES 1.2 % (0-5); LYMPHOCYTES 3.8 % (15-50); MCH 30.3 pg (26.0-34.0); MCHC 33.3 g/dL (31.0-37.0); MCV 90.9 fL (80.0-100.0); MEAN PLATELET VOLUME 10.8 fL (7.4-10.4); MONOCYTES 2.3 % (2-11); NEUTROPHILS 92.3 % (40-80); RBC 2.97 10x6/uL (4.00-5.40); RDW 18.3 % (11.5-14.5); WBC 14.6 10x3/uL (4.8-10.8)
[2020-03-14 08:00] LABS: PLATELET COUNT 164 10x3/uL (130-400)
[2020-03-14 08:07] LABS: ALBUMIN 1.8 g/dL (3.4-5.0); ANION GAP 12.4 mmol/L (8-16); BILIRUBIN - TOTAL 0.36 mg/dL (0.2-1.3); CARBON DIOXIDE 22.9 mmol/L (21.0-32.0); CREATININE - SERUM 1.9 mg/dL (0.6-1.3); PHOSPHOROUS 4.6 mg/dL (2.5-4.9); POTASSIUM - SERUM 3.3 mmol/L (3.5-5.1); PROTEIN - SERUM 4.7 g/dL (6.4-8.2)
[2020-03-14 08:24] LABS: CALCIUM 7.7 mg/dL (8.5-10.1)
[2020-03-14 12:17] VITALS: BP 108/46
[2020-03-14 17:07] VITALS: BP 140/76
--- NOTE | 2020-03-14 18:32 | NUR ---
INCONTINENT CARES RENDERED, LINEN CHANGE PROVIDED. IVYDALE ENCLOSURE BED PATENT. NO DISTRESS.
--- NOTE | 2020-03-14 20:13 | NUR ---
RECIEVED IN MILO BED WITH EYES CLOSED. ORIENTED TO PERSON ONLY. SCRATCHES SELF AND CALLS OUT AT TIMES. UNABLE TO KEEP AN IV IN D/T HER PULLING THEM OUT. BOTH ARMS HAVE BRUISING AND SKIN TEARS. BRUISING UNDER BOTH BREAST NOW AND ALSO RT AND LT LOWER ABD QUADRANTS. NO OTHER INJURIES TO THOSE AREAS.
[2020-03-14 21:02] VITALS: BP 108/57
--- NOTE | 2020-03-15 00:12 | NUR ---
RESTING IN BED WITH EYES CLOSED. NO S/S OF DISTRESS OBSERVED. WILL CONT. POC
[2020-03-15 00:45] VITALS: BP 120/61
--- NOTE | 2020-03-15 02:26 | NUR ---
LYING IN BED WITH EYES OPEN. ALERT AND ORIENTED TO PERSON. WATER GIVEN AND ACCEPTED. REPOSITIONS SELF. SLEEVES STILL IN PLACE.
[2020-03-15 04:37] VITALS: BP 115/52
[2020-03-15 06:15] LABS: APTT 43.9 SECONDS (22.8-39.4); INR 1.1 (0.85-1.17); PROTIME 14.1 SECONDS (11.6-15.0)
[2020-03-15 06:19] LABS: HEMATOCRIT 26.7 % (36.0-48.0); HEMOGLOBIN 8.6 g/dL (12-16); MCH 29.5 pg (26.0-34.0); MCHC 32.2 g/dL (31.0-37.0); MCV 91.4 fL (80.0-100.0); MEAN PLATELET VOLUME 10.2 fL (7.4-10.4); PLATELET COUNT 164 10x3/uL (130-400); RBC 2.92 10x6/uL (4.00-5.40); RDW 18.3 % (11.5-14.5); WBC 13.1 10x3/uL (4.8-10.8)
[2020-03-15 06:39] LABS: ALBUMIN 1.7 g/dL (3.4-5.0); ANION GAP 14.6 mmol/L (8-16); BILIRUBIN - TOTAL 0.34 mg/dL (0.2-1.3); CARBON DIOXIDE 24.2 mmol/L (21.0-32.0); CREATININE - SERUM 1.8 mg/dL (0.6-1.3); MAGNESIUM - SERUM 1.9 mg/dL (1.8-2.4); PROTEIN - SERUM 4.1 g/dL (6.4-8.2)
[2020-03-15 06:42] LABS: POTASSIUM - SERUM 3.8 mmol/L (3.5-5.1)
[2020-03-15 07:48] VITALS: BP 115/67
[2020-03-15 09:41] LABS: BILIRUBIN NEGATIVE (NEGATIVE); KETONE SMALL mg/dL (NEGATIVE); NITRITE NEGATIVE (NEGATIVE); UROBILINOGEN NORMAL mg/dL (< 2)
[2020-03-15 09:42] LABS: BACTERIA FEW HPF (NONE SEEN); EPITHELIAL CELLS 0-5 /hpf (0-5); WHITE CELLS - URINE OCC HPF (0-4)
[2020-03-15 11:25] VITALS: BP 136/66
[2020-03-15 12:16] LABS: EOSINOPHILS 1 % (0-7); LYMPHOCYTES 4 % (15-50); MONOCYTES 8 % (2-11); NEUTROPHILS 86 % (40-80); PLATELET ESTIMATE NORMAL
--- NOTE | 2020-03-15 12:32 | MORECARE ---
CASE MANAGEMENT DISCHARGE SUMMARY PATIENT: JACINTO DHALIWAL UNIT: [id number] ADM DATE: 03/10/20 AGE: 89 : 30 SEX: F ROOM/BED: D.6924 AUTHOR: DALILA YEE PHYSICIAN: REFERRING PHYSICIAN: HAKAN SHAW MD DATE OF SERVICE: 03/15/20 Discharge Plan Patient Name: JACINTO DHALIWAL Facility: [facility]:[place] : 1930 Planned Disposition: Anticipated Discharge Date: Discharge Date: Expected LOS: Initial Reviewer: [email or web address] Initial Review Date: 03/10/2020 Generated: 03/15/20 1:31 pm Patient Name: JACINTO DHALIWAL Page 07772 at 1232 All edits/amendments must be made on the electronic document DICTATION DATE: 03/15/20 1231 CLOTH DYEING RANGE TENDER: MODESTA 03/15/20 1231 RPT#: [id number] DC DATE: STATUS: ADM IN [facility] [address] [place] [address] END OF REPORT
--- NOTE | 2020-03-15 14:15 | NUR ---
Nutrition Follow-up: Pt confused. In izzy bed. Chart reviewed. Poor PO intake noted. Diet: Cardiac PO intake: 0-10% yesterday Wt: 100# (03/11) Last BM: 03/13 per chart Labs noted: Glu 66, Ca 7.0, Alb 1.7 Meds noted: Ferrous Sulfate, Protonix, Florajen, electrolyte protocol -Encourage PO intake and honor food preferences within diet restrictions. -+Ensure with meals. -Need new wt (standing or bedscale). -RD following.
[2020-03-15 14:49] VITALS: BP 111/47
--- NOTE | 2020-03-15 19:30 | NUR ---
RECEIVED BEDSIDE REPORT. PATIENT RESTING COMFORTABLY IN BED. RESPIRATIONS ARE EVEN AND UNLABORED. NO S/S OF DSITRESS. NO C/O PAIN. CALL LIGHT WITHIN REACH. WILL CPOC.
[2020-03-15 20:00] VITALS: BP 137/70
--- NOTE | 2020-03-15 20:43 | MORECARE ---
CASE MANAGEMENT DISCHARGE SUMMARY PATIENT: JACINTO DHALIWAL UNIT: [id number] ADM DATE: 03/10/20 AGE: 89 : 30 SEX: F ROOM/BED: D.5871 AUTHOR: DALILA YEE PHYSICIAN: REFERRING PHYSICIAN: HAKAN SHAW MD DATE OF SERVICE: 03/15/20 Discharge Plan Patient Name: JACINTO DHALIWAL Facility: [facility]:[place] : 1930 Planned Disposition: Anticipated Discharge Date: Discharge Date: Expected LOS: Initial Reviewer: [email or web address] Initial Review Date: 03/10/2020 Generated: 03/15/20 9:42 pm Last DP export: 03/15/20 11:32 a Patient Name: JACINTO DHALIWAL Page 14395 at 2043 All edits/amendments must be made on the electronic document DICTATION DATE: 03/15/202041 CLOTH MERCERIZING SUPERVISOR: MODESTA 03/15/202041 RPT#: [id number] DC DATE: STATUS: ADM IN [facility] [address] [place] [address] END OF REPORT
--- NOTE | 2020-03-15 20:50 | MORECARE ---
CASE MANAGEMENT DISCHARGE SUMMARY PATIENT: JACINTO DHALIWAL UNIT: [id number] ADM DATE: 03/10/20 AGE: 89 : 30 SEX: F ROOM/BED: D.9797 AUTHOR: DALILA YEE PHYSICIAN: REFERRING PHYSICIAN: HAKAN SHAW MD DATE OF SERVICE: 03/15/20 Discharge Plan Patient Name: JACINTO DHALIWAL Facility: [facility]:[place] : 1930 Planned Disposition: Anticipated Discharge Date: Discharge Date: Expected LOS: Initial Reviewer: [email or web address] Initial Review Date: 03/10/2020 Generated: 03/15/20 9:50 pm Comments DCP- Discharge Planning Updated by [email or web address]: Esperanza Garcia on 03/15/20 7:[address] Patient Name: JACINTO DHALIWAL Admission Status: ER Accout number: [id number] Admission Date: 03-10-2020 : 1930 Admission Diagnosis:NAUSEA WITH VOMITING, UNSPECIFIED Attending: HAKAN SHAW Current LOS: 5 Anticipated DC Date: Planned Disposition: Primary Insurance: MEDICARE A & B Late entry. Assessment completed 03/12 Discharge Planning Comments: CM unable to meet with patient to complete initial dc planning because of decreased cognition. CM called pt daughter Mamta at [phone] to complete assessment. CM educated patient on the CM role and verbal consent given by Benita complete assessment. CM verified patient's address, phone number, and emergency contact phone numbers. Prior to admission the patient lived at home and was independent. Mamta states that she has noticed that her mother had went downhill. States she is unable to get OOB without assistance. States that she will not allow her mother to go into a chcf, and will have her live with her upon DC. CM spoke about HH, PT, and DME services. Mamta states she will think about it and get with CM closer to DC date. CM will continue to assist in dc planning/needs. Esperanza Garcia Assistant Golf Coach: Esperanza Garcia DCPIA - Discharge Planning Initial Assessment Updated by [email or web address]: Esperanza Garcia on 03/15/20 8:44 pm * Is the patient Alert and Oriented? No * How many steps to enter\exit or inside your home? 0/0 * PCP [facility] * Pharmacy [facility] * ADLs Independent * Equipment None * List name and contact numbers for known caregivers / representatives who currently or will assist patient after discharge: mamta dtr [phone] * Community resources currently utilized None * Additional services required to return to the preadmission environment? Yes * Can the patient safely return to the preadmission environment? No * Has this patient been hospitalized within the prior 30 days at any hospital? No Last DP export: 03/15/20 7:43 p Patient Name: JACINTO DHALIWAL Page 56709 at 2049 All edits/amendments must be made on the electronic document DICTATION DATE: 03/15/202049 ROAD PASSENGER FIRER: MODESTA 03/15/202049 RPT#: [id number] DC DATE: STATUS: ADM IN [facility] [address] [place] [address] END OF REPORT
--- NOTE | 2020-03-15 20:58 | MORECARE ---
CASE MANAGEMENT DISCHARGE SUMMARY PATIENT: JACINTO DHALIWAL UNIT: [id number] ADM DATE: 03/10/20 AGE: 89 : 30 SEX: F ROOM/BED: D.4138 AUTHOR: DALILA YEE PHYSICIAN: REFERRING PHYSICIAN: HAKAN SHAW MD DATE OF SERVICE: 03/15/20 Discharge Plan Patient Name: JACINTO DHALIWAL Facility: [facility]:[place] : 1930 Planned Disposition: Anticipated Discharge Date: Discharge Date: Expected LOS: Initial Reviewer: [email or web address] Initial Review Date: 03/10/2020 Generated: 03/15/20 9:57 pm Comments DCP- Discharge Planning Updated by [email or web address]: Esperanza Garcia on 03/15/20 7:[address] Patient Name: JACINTO DHALIWAL Admission Status: ER Accout number: [id number] Admission Date: 03-10-2020 : 1930 Admission Diagnosis:NAUSEA WITH VOMITING, UNSPECIFIED Attending: HAKAN SHAW Current LOS: 5 Anticipated DC Date: Planned Disposition: Primary Insurance: MEDICARE A & B Discharge Planning Comments: CM met with Tammie (DTR) who was at bedside for the patient. CM spoke about the patients condition and about services available. Carlos CARTER entered room and spoke of hospice. CM provided hospice services for the home. Tammie states the family is unable to provide 24/hour care at this time at this stage of the patient current condition. SOLEDAD spoke about hospice services at SNF, care homes, and private duty providers at Mamta's home. Tammie states she will speak with Mamta and get back with CM on 03/16. CM will continue following and assist as needed. Esperanza Garcia Health Inspector: Esperanza Garcia DCP- Discharge Planning Updated by [email or web address]: Esperanza Garcia on 03/15/20 7:[address] Patient Name: JACINTO DHALIWAL Admission Status: ER Accout number: [id number] Admission Date: 03-10-2020 : 1930 Admission Diagnosis:NAUSEA WITH VOMITING, UNSPECIFIED Attending: HAKAN SHAW Current LOS: 5 Anticipated DC Date: Planned Disposition: Primary Insurance: MEDICARE A & B Late entry. Assessment completed 03/12 Discharge Planning Comments: CM unable to meet with patient to complete initial dc planning because of decreased cognition. CM called pt daughter Mamta at [phone] to complete assessment. CM educated patient on the CM role and verbal consent given by Benita complete assessment. CM verified patient's address, phone number, and emergency contact phone numbers. Prior to admission the patient lived at home and was independent. Mamta states that she has noticed that her mother had went downhill. States she is unable to get OOB without assistance. States that she will not allow her mother to go into a senior living, and will have her live with her upon DC. CM spoke about HH, PT, and DME services. Mamta states she will think about it and get with CM closer to DC date. CM will continue to assist in dc planning/needs. Esperanza Garcia Health Inspector: Esperanza Garcia DCPIA - Discharge Planning Initial Assessment Updated by [email or web address]: Esperanza Garcia on 03/15/20 8:44 pm * Is the patient Alert and Oriented? No * How many steps to enter\exit or inside your home? 0/0 * PCP [facility] * Pharmacy [facility] * ADLs Independent * Equipment None * List name and contact numbers for known caregivers / representatives who currently or will assist patient after discharge: mamta dtr [phone] * Community resources currently utilized None * Additional services required to return to the preadmission environment? Yes * Can the patient safely return to the preadmission environment? No * Has this patient been hospitalized within the prior 30 days at any hospital? No Last DP export: 03/15/20 7:50 p Patient Name: JACINTO DHALIWAL Page 80856 at 2058 All edits/amendments must be made on the electronic document DICTATION DATE: 03/15/202056 VALVE INSERTER: MODESTA 03/15/202056 RPT#: [id number] DC DATE: STATUS: ADM IN [facility] [address] [place] [address] END OF REPORT
[2020-03-16] VITALS: BP 138/78
[2020-03-16 04:00] VITALS: BP 138/66
[2020-03-16 07:04] LABS: ALBUMIN 1.5 g/dL (3.4-5.0); BILIRUBIN - TOTAL 0.27 mg/dL (0.2-1.3); CALCIUM 7.7 mg/dL (8.5-10.1); CARBON DIOXIDE 26.7 mmol/L (21.0-32.0); CREATININE - SERUM 1.4 mg/dL (0.6-1.3); MAGNESIUM - SERUM 1.7 mg/dL (1.8-2.4); PROTEIN - SERUM 3.9 g/dL (6.4-8.2)
[2020-03-16 07:06] VITALS: BP 113/42
[2020-03-16 07:13] LABS: BASOPHILS 0.2 % (0-2); HEMATOCRIT 23.1 % (36.0-48.0); HEMOGLOBIN 7.6 g/dL (12-16); IMMATURE GRANULOCYTES 0.5 % (0-5); LYMPHOCYTES 7.6 % (15-50); MCH 29.9 pg (26.0-34.0); MCHC 32.9 g/dL (31.0-37.0); MCV 90.9 fL (80.0-100.0); MEAN PLATELET VOLUME 10.9 fL (7.4-10.4); MONOCYTES 8.2 % (2-11); NEUTROPHILS 82.5 % (40-80); PLATELET COUNT 147 10x3/uL (130-400); RBC 2.54 10x6/uL (4.00-5.40); RDW 17.5 % (11.5-14.5)
[2020-03-16 07:14] LABS: WBC 6.2 10x3/uL (4.8-10.8)
--- NOTE | 2020-03-16 07:20 | NUR ---
RECIEVE REPORT. CONFUSED. IN MILO BED. TREAT POTASSIUM 2.7 PER PROTOCOL. CONTINUE PLAN OF CARE AND SAFETY PRECAUTIONS.
[2020-03-16 07:38] LABS: PHOSPHOROUS 2.6 mg/dL (2.5-4.9)
[2020-03-16 07:41] LABS: POTASSIUM - SERUM 2.7 mmol/L (3.5-5.1)
--- NOTE | 2020-03-16 10:09 | NUR ---
RESTING IN BED WITH EYES CLOSED. UNZIP MILO BED SIDE CLOSEST TO DOOR. CONTINUE TO MONITOR. CONTINUE PLAN OF CARE AND SAFETY PRECAUTIONS.
[2020-03-16 11:03] VITALS: BP 115/71
--- NOTE | 2020-03-16 13:16 | MORECARE ---
CASE MANAGEMENT DISCHARGE SUMMARY PATIENT: JACINTO DHALIWAL UNIT: [id number] ADM DATE: 03/10/20 AGE: 89 : 30 SEX: F ROOM/BED: D.8507 AUTHOR: DALILA YEE PHYSICIAN: REFERRING PHYSICIAN: HAKAN SHAW MD DATE OF SERVICE: 03/16/20 Discharge Plan Patient Name: JACINTO DHALIWAL Facility: [facility]:[place] : 1930 Planned Disposition: Anticipated Discharge Date: Discharge Date: Expected LOS: Initial Reviewer: [email or web address] Initial Review Date: 03/10/2020 Generated: 03/16/20 2:15 pm Comments DCP- Discharge Planning Updated by [id number]: Esperanza Garcia on 03/15/20 7:[address] Patient Name: JACINTO DHALIWAL Admission Status: ER Accout number: [id number] Admission Date: 03-10-2020 : 1930 Admission Diagnosis:NAUSEA WITH VOMITING, UNSPECIFIED Attending: HAKAN SHAW Current LOS: 5 Anticipated DC Date: Planned Disposition: Primary Insurance: MEDICARE A & B Discharge Planning Comments: CM met with Tammie (DTR) who was at bedside for the patient. CM spoke about the patients condition and about services available. Carlos CARTER entered room and spoke of hospice. CM provided hospice services for the home. Tammie states the family is unable to provide 24/hour care at this time at this stage of the patient current condition. SOLEDAD spoke about hospice services at SNF, care homes, and private duty providers at Mamta's [place]. Tammie states she will speak with Mamta and get back with CM on 03/16. CM will continue following and assist as needed. Esperanza Garcia Safety Investigator/Cause Analyst: Esperanza Garcia DCP- Discharge Planning Updated by [email or web address]: Esperanza Garcia on 03/15/20 7:[address] Patient Name: JACINTO DHALIWAL Admission Status: ER Accout number: [id number] Admission Date: 03-10-2020 : 1930 Admission Diagnosis:NAUSEA WITH VOMITING, UNSPECIFIED Attending: HAKAN SHAW Current LOS: 5 Anticipated DC Date: Planned Disposition: Primary Insurance: MEDICARE A & B Late entry. Assessment completed 03/12 Discharge Planning Comments: CM unable to meet with patient to complete initial dc planning because of decreased cognition. CM called pt daughter Mamta at [phone] to complete assessment. CM educated patient on the CM role and verbal consent given by Benita complete assessment. CM verified patient's address, phone number, and emergency contact phone numbers. Prior to admission the patient lived at home and was independent. Mamta states that she has noticed that her mother had went downhill. States she is unable to get OOB without assistance. States that she will not allow her mother to go into a intermediate, and will have her live with her upon DC. CM spoke about HH, PT, and DME services. Mamta states she will think about it and get with CM closer to DC date. CM will continue to assist in dc planning/needs. Esperanza Garcia Safety Investigator/Cause Analyst: Esperanza Garcia DCPIA - Discharge Planning Initial Assessment Updated by [email or web address]: Esperanza Garcia on 03/15/20 8:44 pm * Is the patient Alert and Oriented? No * How many steps to enter\exit or inside your home? 0/0 * PCP [facility] * Pharm[facility] * ADLs Independent * Equipment None * List name and contact numbers for known caregivers / representatives who currently or will assist patient after discharge: mamta dtr [phone] * Community resources currently utilized None * Additional services required to return to the preadmission environment? Yes * Can the patient safely return to the preadmission environment? No * Has this patient been hospitalized within the prior 30 days at any hospital? No External Providers External Provider: [facility], [facility]. ([place]) Next Contact Date: Service Request Date: Service Type: Resolution: Reviewer: Comments: Last DP export: 03/15/20 7:58 p Patient Name: JACINTO DHALIWAL Page 85599 at 1316 All edits/amendments must be made on the electronic document DICTATION DATE: 03/16/20 1316 CARTON STENCILER: MODESTA 03/16/20 1315 RPT#: [id number] DC DATE: STATUS: ADM IN [facility] [address] [place] [address] END OF REPORT
[2020-03-16 14:57] VITALS: BP 156/93
--- NOTE | 2020-03-16 19:16 | MORECARE ---
CASE MANAGEMENT DISCHARGE SUMMARY PATIENT: JACINTO DHALIWAL UNIT: [id number] ADM DATE: 03/10/20 AGE: 89 : 30 SEX: F ROOM/BED: D.1319 AUTHOR: DALILA YEE PHYSICIAN: REFERRING PHYSICIAN: HAKAN SHAW MD DATE OF SERVICE: 03/16/20 Discharge Plan Patient Name: JACINTO DHALIWAL Facility: [facility]:[place] : 1930 Planned Disposition: Anticipated Discharge Date: Discharge Date: Expected LOS: Initial Reviewer: [email or web address] Initial Review Date: 03/10/2020 Generated: 03/16/20 8:16 pm Comments DCP- Discharge Planning Updated by [email or web address]: Esperanza Garcia on 03/15/20 7:[address] Patient Name: JACINTO DHALIWAL Admission Status: ER Accout number: [id number] Admission Date: 03-10-2020 : 1930 Admission Diagnosis:NAUSEA WITH VOMITING, UNSPECIFIED Attending: HAKAN SHAW Current LOS: 5 Anticipated DC Date: Planned Disposition: Primary Insurance: MEDICARE A & B Discharge Planning Comments: CM met with Tammie (DTR) who was at bedside for the patient. CM spoke about the patients condition and about services available. Carlos CARTER entered room and spoke of hospice. CM provided hospice services for the home. Tammie states the family is unable to provide 24/hour care at this time at this stage of the patient current condition. SOLEDAD spoke about hospice services at SNF, care homes, and private duty providers at Mamta's [place]. Tammie states she will speak with Mamta and get back with CM on 03/16. CM will continue following and assist as needed. Esperanza Garcia Junior Analyst: Esperanza Garcia DCP- Discharge Planning Updated by [id number]: Esperanza Garcia on 03/15/20 7:[address] Patient Name: JACINTO DHALIWAL Admission Status: ER Accout number: [id number] Admission Date: 03-10-2020 : 1930 Admission Diagnosis:NAUSEA WITH VOMITING, UNSPECIFIED Attending: HAKAN SHAW Current LOS: 5 Anticipated DC Date: Planned Disposition: Primary Insurance: MEDICARE A & B Late entry. Assessment completed 03/12 Discharge Planning Comments: CM unable to meet with patient to complete initial dc planning because of decreased cognition. CM called pt daughter Mamta at [phone] to complete assessment. CM educated patient on the CM role and verbal consent given by Benita complete assessment. CM verified patient's address, phone number, and emergency contact phone numbers. Prior to admission the patient lived at home and was independent. Mamta states that she has noticed that her mother had went downhill. States she is unable to get OOB without assistance. States that she will not allow her mother to go into a correction, and will have her live with her upon DC. CM spoke about HH, PT, and DME services. Mamta states she will think about it and get with CM closer to DC date. CM will continue to assist in dc planning/needs. Esperanza Garcia Junior Analyst: Esperanza Garcia DCPIA - Discharge Planning Initial Assessment Updated by [email or web address]: Esperanza Garcia on 03/15/20 8:44 pm * Is the patient Alert and Oriented? No * How many steps to enter\exit or inside your home? 0/0 * PCP [facility] * Pharmacy [facility] * ADLs Independent * Equipment None * List name and contact numbers for known caregivers / representatives who currently or will assist patient after discharge: mamta dtr [phone] * Community resources currently utilized None * Additional services required to return to the preadmission environment? Yes * Can the patient safely return to the preadmission environment? No * Has this patient been hospitalized within the prior 30 days at any hospital? No Last DP export: 03/16/20 12:16 p Patient Name: JACINTO DHALIWAL Page 64216 at 1916 All edits/amendments must be made on the electronic document DICTATION DATE: 03/16/201915 CONTINUOUS WAVE OPERATOR: MODESTA 03/16/201915 RPT#: [id number] DC DATE: STATUS: ADM IN [facility] [address] [place] [address] END OF REPORT
--- NOTE | 2020-03-16 19:29 | MORECARE ---
CASE MANAGEMENT DISCHARGE SUMMARY PATIENT: JACINTO DHALIWAL UNIT: [id number] ADM DATE: 03/10/20 AGE: 89 : 30 SEX: F ROOM/BED: D.4347 AUTHOR: DALILA YEE PHYSICIAN: REFERRING PHYSICIAN: HAKAN SHAW MD DATE OF SERVICE: 03/16/20 Discharge Plan Patient Name: JACINTO DHALIWAL Facility: [facility]:[place] : 1930 Planned Disposition: Anticipated Discharge Date: Discharge Date: Expected LOS: Initial Reviewer: [email or web address] Initial Review Date: 03/10/2020 Generated: 03/16/20 8:28 pm Comments DCP- Discharge Planning Updated by [email or web address]: Esperanza Garcia on 03/16/20 6:[address] CM met with Frida Tamayo from [facility] . DME will need to be provided and it is anticipated to arrive 03/17 mid day. The patient is on continuous oxygen at 4 liters, and is bedbound. EMS will need to transport the patient to [facility]'s [place] in [place]. That address is [address] [place] [address]. Belkis states she will use hospice resources, and will pay for a caregiver during the day hours so she can lithographic general worker. She states she will be able to provide care at night. CM will continue to assist in DC planning/needs. Esperanza Garcia DCP- Discharge Planning Updated by [email or web address]: Esperanza Garcia on 03/15/20 7:[address] Patient Name: JACINTO DHALIWAL Admission Status: ER Accout number: [id number] Admission Date: 03-10-2020 : 1930 Admission Diagnosis:NAUSEA WITH VOMITING, UNSPECIFIED Attending: HAKAN SHAW Current LOS: 5 Anticipated DC Date: Planned Disposition: Primary Insurance: MEDICARE A & B Discharge Planning Comments: CM met with Tammie (DTR) who was at bedside for the patient. CM spoke about the patients condition and about services available. Carlos CARTER entered room and spoke of hospice. CM provided hospice services for the home. Tammie states the family is unable to provide 24/hour care at this time at this stage of the patient current condition. CM spoke about hospice services at SNF, care homes, and private duty providers at Mamta's home. Tammie states she will speak with Mamta and get back with CM on 03/16. CM will continue following and assist as needed. Esperanza Garcia Medical Staff Coordinator: Esperanza Garcia DCP- Discharge Planning Updated by [email or web address]: Esperanza Garcia on 03/15/20 7:[address] Patient Name: JACINTO DHALIWAL Admission Status: ER Accout number: [id number] Admission Date: 03-10-2020 : 1930 Admission Diagnosis:NAUSEA WITH VOMITING, UNSPECIFIED Attending: HAKAN SHAW Current LOS: 5 Anticipated DC Date: Planned Disposition: Primary Insurance: MEDICARE A & B Late entry. Assessment completed 03/12 Discharge Planning Comments: CM unable to meet with patient to complete initial dc planning because of decreased cognition. CM called pt daughter Mamta at [phone] to complete assessment. CM educated patient on the CM role and verbal consent given by Benita complete assessment. CM verified patient's address, phone number, and emergency contact phone numbers. Prior to admission the patient lived at home and was independent. Mamta states that she has noticed that her mother had went downhill. States she is unable to get OOB without assistance. States that she will not allow her mother to go into a prison, and will have her live with her upon DC. CM spoke about HH, PT, and DME services. Mamta states she will think about it and get with CM closer to DC date. CM will continue to assist in dc planning/needs. Esperanza Garcia Medical Staff Coordinator: Esperanza Garcia DCPIA - Discharge Planning Initial Assessment Updated by [email or web address]: Esperanza Garcia on 03/15/20 8:44 pm * Is the patient Alert and Oriented? No * How many steps to enter\exit or inside your home? 0/0 * PCP [facility] * Pharm[facility] * ADLs Independent * Equipment None * List name and contact numbers for known caregivers / representatives who currently or will assist patient after discharge: mamta dtr [phone] * Community resources currently utilized None * Additional services required to return to the preadmission environment? Yes * Can the patient safely return to the preadmission environment? No * Has this patient been hospitalized within the prior 30 days at any hospital? No Last DP export: 03/16/20 6:16 p Patient Name: JACINTO DHALIWAL Page 21054 at 192 All edits/amendments must be made on the electronic document DICTATION DATE: 03/16/201927 MORTGAGE PROTECTION SPECIALIST: MODESTA 03/16/201927 RPT#: [id number] DC DATE: STATUS: ADM IN [facility] [address] [place] [address] END OF REPORT
--- NOTE | 2020-03-16 19:43 | NUR ---
RECEIVED BEDSIDE REPORT. ROUNDING COMPLETE. PATIENT IS PLEASANTLY CONFUSED, RESTING COMFORTABLY IN HER MILO BED. RESPIRATIONS ARE EVEN AND UNLABORED. NO S/S OF DISTRESS. NO C/O PAIN. CALLLIGHT WITHIN REACH. WILL CPOC.
[2020-03-17 08:01] LABS: MAGNESIUM - SERUM 1.5 mg/dL (1.8-2.4); PHOSPHOROUS 2.2 mg/dL (2.5-4.9)
[2020-03-17 08:14] VITALS: BP 136/68
[2020-03-17 08:45] LABS: BASOPHILS 0 % (0-2); EOSINOPHILS 1.4 % (0-7); IMMATURE GRANULOCYTES 0.5 % (0-5); MCH 29.6 pg (26.0-34.0); MCHC 32.1 g/dL (31.0-37.0); MCV 92.3 fL (80.0-100.0); MEAN PLATELET VOLUME 10.6 fL (7.4-10.4); NEUTROPHILS 83.1 % (40-80); PLATELET COUNT 127 10x3/uL (130-400); RBC 3.11 10x6/uL (4.00-5.40); RDW 17.4 % (11.5-14.5); WBC 5.7 10x3/uL (4.8-10.8)
[2020-03-17 08:46] LABS: HEMATOCRIT 28.7 % (36.0-48.0); HEMOGLOBIN 9.2 g/dL (12-16)
[2020-03-17 08:58] LABS: ANION GAP 10.6 mmol/L (8-16); CALCIUM 8.1 mg/dL (8.5-10.1); CREATININE - SERUM 1.3 mg/dL (0.6-1.3)
[2020-03-17 09:00] LABS: POTASSIUM - SERUM 3.6 mmol/L (3.5-5.1)
--- NOTE | 2020-03-17 12:53 | NUR ---
[facility] CALLED FOR PICKUP.
--- NOTE | 2020-03-17 13:36 | NUR ---
LEATHA [facility] CALLED WHEN PT LEFT BY EMS.
--- NOTE | 2020-03-18 09:35 | MORECARE ---
CASE MANAGEMENT DISCHARGE SUMMARY PATIENT: JACINTO DHALIWAL UNIT: [id number] ADM DATE: 03/10/20 AGE: 89 : 30 SEX: F ROOM/BED: D.1343 AUTHOR: DALILA YEE PHYSICIAN: REFERRING PHYSICIAN: HAKAN SHAW MD DATE OF SERVICE: 03/18/20 Discharge Plan Patient Name: JACINTO DHALIWAL Facility: [facility]:[place] : 1930 Planned Disposition: Anticipated Discharge Date: Discharge Date: 03/17/2020 Expected LOS: Initial Reviewer: [email or web address] Initial Review Date: 03/10/2020 Generated: 03/18/20 10:35 am Comments DCP- Discharge Planning Updated by [email or web address]: Esperanza Garcia on 03/16/20 6:[address] CM met with Frida Tamayo from [facility] . DME will need to be provided and it is anticipated to arrive 03/17 mid day. The patient is on continuous oxygen at 4 liters, and is bedbound. EMS will need to transport the patient to [facility]'s home in [place]. That address is [address] [place] [address]. Belkis states she will use hospice resources, and will pay for a caregiver during the day hours so she can personal care worker. She states she will be able to provide care at night. CM will continue to assist in DC planning/needs. Esperanza Garcia DCP- Discharge Planning Updated by [email or web address]: Esperanza Garcia on 03/15/20 7:[address] Patient Name: JACINTO DHALIWAL Admission Status: ER Accout number: [id number] Admission Date: 03-10-2020 : 1930 Admission Diagnosis:NAUSEA WITH VOMITING, UNSPECIFIED Attending: HAKAN SHAW Current LOS: 5 Anticipated DC Date: Planned Disposition: Primary Insurance: MEDICARE A & B Discharge Planning Comments: CM met with Tammie (DTR) who was at bedside for the patient. CM spoke about the patients condition and about services available. Carlos CARTER entered room and spoke of hospice. CM provided hospice services for the home. Tammie states the family is unable to provide 24/hour care at this time at this stage of the patient current condition. SOLEDAD spoke about hospice services at SNF, care homes, and private duty providers at Mamta's home. Tammie states she will speak with Mamta and get back with CM on 03/16. CM will continue following and assist as needed. Esperanza Garcia Merchandise Carrier: Esperanza Garcia DCP- Discharge Planning Updated by [email or web address]: Esperanza Garcia on 03/15/20 7:[address] Patient Name: JACINTO DHALIWAL Admission Status: ER Accout number: [id number] Admission Date: 03-10-2020 : 1930 Admission Diagnosis:NAUSEA WITH VOMITING, UNSPECIFIED Attending: HAKAN SHAW Current LOS: 5 Anticipated DC Date: Planned Disposition: Primary Insurance: MEDICARE A & B Late entry. Assessment completed 03/12 Discharge Planning Comments: CM unable to meet with patient to complete initial dc planning because of decreased cognition. CM called pt daughter Mamta at [phone] to complete assessment. CM educated patient on the CM role and verbal consent given by Kipcorine complete assessment. CM verified patient's address, phone number, and emergency contact phone numbers. Prior to admission the patient lived at home and was independent. Mamta states that she has noticed that her mother had went downhill. States she is unable to get OOB without assistance. States that she will not allow her mother to go into a skilled nursing, and will have her live with her upon DC. CM spoke about HH, PT, and DME services. Mamta states she will think about it and get with CM closer to DC date. CM will continue to assist in dc planning/needs. Esperanza Garcia Merchandise Carrier: Esperanza Garcia DCPIA - Discharge Planning Initial Assessment Updated by [email or web address]: Esperanza Garcia on 03/15/20 8:44 pm * Is the patient Alert and Oriented? No * How many steps to enter\exit or inside your home? 0/0 * PCP [facility] * Pharmacy [facility] * ADLs Independent * Equipment None * List name and contact numbers for known caregivers / representatives who currently or will assist patient after discharge: mamta dtr [phone] * Community resources currently utilized None * Additional services required to return to the preadmission environment? Yes * Can the patient safely return to the preadmission environment? No * Has this patient been hospitalized within the prior 30 days at any hospital? No Last DP export: 03/16/20 6:29 p Patient Name: JACINTO DHALIWAL Page [id number] at 0935 All edits/amendments must be made on the electronic document DICTATION DATE: 03/18/20934 SKATES OPERATOR: MODESTA 03/18/2035 RPT#: [id number] DC DATE:03/17/20 STATUS: DIS IN [facility] [address] [place] [address] END OF REPORT
--- NOTE | 2020-03-22 09:08 | EC ---
PATIENT:JACINTO DHALIWAL DATE OF SERVICE: 03/10/20 SEX: F MEDICAL RECORD: [id number] DATE OF : 30 LOCATION:D. D.212 AGE OF PATIENT: 89 ADMISSION DATE: 03/10/20 REFERRING PHYSICIAN: INTERPRETING PHYSICIAN: CARLOS SURESH MD ECHOCARDIOGRAM REPORT ECHO CHARGES 4 ECHO COMPLETE Date: 03/11/20 CLINICAL DIAGNOSIS: SOB ECHOCARDIOGRAPHIC MEASUREMENTS (adult normal given) AC root (d.<3.7cm) 3.0 cm LV Septum d (<1.2 cm> 1.1 cm Valve Excursion 1.3 cm LV Septum (systole) 1.2 cm Left Atria (s.<4.0cm> 3.4 cm LVPW d(<1.2cm) 0.9 cm RV (d.<2.3cm) 3.7 cm LVPW (sytole) 1.1 cm LV diastole(<5.6CM) 5.0 cm MV E-F(>70mm/sec) cm LV systole 3.6 cm LVOT Diameter 2.0 cm MV exc.(>10mm) 1.4 cm Est.ejection fraction (50-75%) % DOPPLER: LVIT cm/sec A 136 cm/sec E 82 cm/sec LA cm/sec RVSP 26 mmHg LVOT 106 cm/sec AOP1/2T m/s Asc. Ao 169 cm/sec RVOT 61 cm/sec RA cm/sec PA 74 cm/sec AV Gradient Peak 11.4 mmHg AV Mean 4.9 mmHg AV Area 2.3 cm MV Gradient Peak 11.3 mmHg MV Mean 5.5 mmHg MV Area cm COMMENTS: Stained Glass Joiner: Karen [facility] Composition Floor Layer: 3 Dr. Andrew TAPE# PACS Pericardial Effusion N DATE OF SERVICE: Adequate 2D, color flow imaging, spectral Doppler and M-mode. No LVH. LV internal dimension is normal. Wall motion is normal. EF is greater than or equal to 55%. Aortic valve is tricuspid. No evidence of stenosis by Doppler interrogation. Left atrium is normal at 3.4 cm. Mitral valve shows no prolapse. Mild MR. Right-sided chambers grossly normal. Trace TR. TRANSINT:[id number] Voice Confirmation ID: [id number] DOCUMENT ID: [id number] ECHOCARDIOGRAM REPORT [id number] JACINTO DHALIWAL CARLOS SURESH MD at 0908 CC: [id number] DICTATION DATE: 03/11/20 1644 DIRECTOR NON PROFIT: 03/11/20 2345 DIS IN 03/17/20 [id number] [place] [address]
[2020-03-26 19:08] LABS: AEROBE ID Final report (())
== END 2020-03-17 13:37 | disposition home health service (06) | DRG 193 ==
LOC: D.ER 09:09 → D.M2 12:58 → D.EDHOLD 12:58 → D.M2 15:00
PROVIDERS: Family Medicine; Internal Medicine; ADMIT Family Medicine; ATTEND Family Medicine
DX: J18.9 Pneumonia, unspecified organism (principal); E43 Unspecified severe protein-calorie malnutrition; G93.41 Metabolic encephalopathy; I50.31 Acute diastolic (congestive) heart failure; K85.90 Acute pancreatitis without necrosis or infection, unspecified; J98.11 Atelectasis; N17.9 Acute kidney failure, unspecified; Z68.1 Body mass index [BMI] 19.9 or less, adult; S82.841A Displaced bimalleolar fracture of right lower leg, initial encounter for closed fracture; X58.XXXA Exposure to other specified factors, initial encounter; M85.80 Other specified disorders of bone density and structure, unspecified site; K21.9 Gastro-esophageal reflux disease without esophagitis; I25.10 Atherosclerotic heart disease of native coronary artery without angina pectoris; N18.9 Chronic kidney disease, unspecified; D50.9 Iron deficiency anemia, unspecified; I34.0 Nonrheumatic mitral (valve) insufficiency; R40.2134 Coma scale, eyes open, to sound, 24 hours or more after hospital admission; R40.2354 Coma scale, best motor response, localizes pain, 24 hours or more after hospital admission; R40.2244 Coma scale, best verbal response, confused conversation, 24 hours or more after hospital admission; Z86.73 Personal history of transient ischemic attack (TIA), and cerebral infarction without residual deficits; Z86.718 Personal history of other venous thrombosis and embolism